=== PATIENT | male | born 1970 | race American Indian/Alaskan Native ===

== ENCOUNTER 2017-05-14 22:00 | Emergency (ER) | payer SELFPAY ==
[2017-05-14] MEDS ORDERED: Lidocaine 1% 30 ML SDV INJECT ONE (22:19)
[2017-05-14] MEDS ORDERED: Bacitracin Oint 1 GM U/D Packet TOP ONE (22:19)
[2017-05-14 22:38] LABS: CHLORIDE,CL 102 mmol/L (101-111); SODIUM,NA 138 mmol/L (135-145)
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
== END 2017-05-14 22:52 | disposition left against medical advice (07) ==
LOC: DL.ED 22:00
DX: S01.81XA Laceration without foreign body of other part of head, initial encounter (principal); S60.311A Abrasion of right thumb, initial encounter; F10.129 Alcohol abuse with intoxication, unspecified; F17.210 Nicotine dependence, cigarettes, uncomplicated; Z88.6 Allergy status to analgesic agent; Z79.4 Long term (current) use of insulin; W19.XXXA Unspecified fall, initial encounter; Y90.8 Blood alcohol level of 240 mg/100 ml or more
CPT/HCPCS: 12011; 36415; 70450; 70486; 72125; 80053; 82962; 85025; 99284; G0480

== ENCOUNTER 2018-10-19 09:02 | Emergency (ER) | payer MEDICAID, OTHER ==
[2018-10-19] MEDS ORDERED: LORazepam 2 MG/ML Syringe ONE (09:08)
[2018-10-19] MEDS ORDERED: diphenhydrAMINE 50 MG/ML SDV IVPUSH ONE (09:14)
[2018-10-19] MEDS ORDERED: Haloperidol Lactate 5 MG/ML SDV IVPUSH ONE (09:14)
[2018-10-19] MEDS ORDERED: Rocuronium 100 MG/10 ML MDV IV ONE (09:19)
[2018-10-19] MEDS ORDERED: Succinylcholine 200 MG/10 ML MDV IV ONE (09:19)
[2018-10-19] MEDS ORDERED: Propofol 200 MG/20 ML SDV IV ONE (09:19)
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
[2018-10-19 09:58] LABS: ANION GAP 21.2; CHLORIDE,CL 108 mmol/L (101-111); SODIUM,NA 144 mmol/L (135-145)
[2018-10-19 10:18] LABS: ACETAMINOPHEN < 10 ug/mL
[2018-10-19 10:28] VITALS: BP 155/88
== END 2018-10-19 12:00 ==
LOC: DL.ED 09:18
DX: S06.5X9A Traumatic subdural hemorrhage with loss of consciousness of unspecified duration, initial encounter (principal); S60.812A Abrasion of left wrist, initial encounter; S60.811A Abrasion of right wrist, initial encounter; S80.812A Abrasion, left lower leg, initial encounter; S80.811A Abrasion, right lower leg, initial encounter; Z88.6 Allergy status to analgesic agent; W19.XXXA Unspecified fall, initial encounter; W22.8XXA Striking against or struck by other objects, initial encounter
CPT/HCPCS: 31500; 51702; 70450; 71045; 72125; 80053; 80305; 81001; 82009; 82140; 82150; 82962; 83605; 83690; 83735; 85025; 86788; 93005; 96374; 96375; 99285; G0480; J0330; J1200; J1630; J2060; J2704; 36415

== ENCOUNTER 2020-12-02 23:46 | Emergency (ER) | payer SELFPAY ==
[2020-12-03 00:01] VITALS: BP 145/94; PULSE 106
--- NOTE | 2020-12-03 00:04 | EDM.PDOC ---
ED HPI GENERAL MEDICAL PROBLEM - General Chief Complaint: Lower Extremity Injury/Pain Stated Complaint: SWELLING IN BOTH FEET Time Seen by Provider: 12/02/20 23:58 Source of Information: Reports: Patient - History of Present Illness INITIAL COMMENTS - FREE TEXT/NARRATIVE: Pt is here for bilateral feet pain and swelling. He noted that his right foot started with swelling and pain, then it moved to his left foot and leg. He has a history of diabetes, but hasn't been to see is PCP in over a year and has not been taking any medications. He noted his pain and swelling have been present for 3-4 days and an ulcer on his right foot has been there for 5 days. Pt stated he didn't go to his PCP as he doesn't like the hospital. The pain became severe so he finally decided to come in. He denies any fevers or chills. He has not taken anything for the pain or swelling. He has decreased sensation in his feet from his diabetes, but can feel the pain right now. - Related Data Allergies Allergy/AdvReac Type Severity Reaction Status Date / Time ibuprofen AdvReac Mild Abdominal Verified 10/19/18 10:45 Pain Home Meds: Home Meds metFORMIN [Glucophage] 1,000 mg PO BIDMEALS 09/05/14 [History] Insulin Detemir [Levemir] 20 unit SQ BEDTIME 10/19/14 [History] Losartan [Cozaar] 25 mg PO DAILY 05/23/17 [History] Past Medical History - Past Health History Medical/Surgical History: Denies Medical/Surgical History Cardiovascular History: Reports: Hypertension Neurological History: Reports: Brain Injury (Hx of subdural hematoma), Concussion, Head Trauma Psychiatric History: Reports: Addiction (Methampetamine, THC), Depression, Other (See Below) Endocrine/Metabolic History: Reports: Diabetes, Type II Social & Family History - Family History Family Medical History: Unobtainable - Caffeine Use Caffeine Use: Reports: Other Caffeine Use Comment: unable to obtain - Living Situation & Occupation Living situation: Reports: with Spouse Review of Systems - Review of Systems Review Of Systems: Comprehensive ROS is negative, except as noted in HPI. ED EXAM, GENERAL - Physical Exam Exam: See Below Exam Limited By: No Limitations General Appearance: Alert, No Apparent Distress Eye Exam: Bilateral Eye: Normal Inspection Ears: Normal External Exam Throat/Mouth: Normal Voice, No Airway Compromise Head: Atraumatic, Normocephalic Neck: Supple, Non-Tender Respiratory/Chest: No Respiratory Distress, Lungs Clear, Normal Breath Sounds, No Accessory Muscle Use Cardiovascular: Normal Peripheral Pulses, Regular Rate, Rhythm, No Murmur GI/Abdominal: Soft, No Distention (Male) Exam: Deferred Rectal (Males) Exam: Deferred Back Exam: Full Range of Motion Extremities: Leg Pain, Increased Warmth, Redness, Other (Right great toe with chronic ulcer noted on plantar aspect, about 6 mm in diameter and 4 mm deep. Erythema and swelling over the great toe extending to midfoot. Left foot with moderate swelling, erythema and warmth extending to the mid calf, skin breakdown noted on the great toe, but no ulcer identi) Neurological: Alert, Oriented, Normal Cognition Psychiatric: Normal Affect, Normal Mood Skin Exam: Other (see extremities) Lymphatic: No Adenopathy Course - Re-Assessments/Exams Free Text/Narrative Re-Assessment/Exam: IV was started and labs were drawn. Pt informed the nurse he wanted to leave AMA prior to getting his antibiotics. 12/03/20 00:13 Departure - Departure Time of Disposition: 00:16 Disposition: Against Medical Advice 07 Condition: Undetermined Clinical Impression: Cellulitis Qualifiers: Site of cellulitis: extremity Site of cellulitis of extremity: lower extremity Laterality: unspecified laterality Qualified Code(s): L03.119 - Cellulitis of unspecified part of limb - Discharge Information *PRESCRIPTION DRUG MONITORING PROGRAM REVIEWED*: Not Applicable *COPY OF PRESCRIPTION DRUG MONITORING REPORT IN PATIENT DIEGO: Not Applicable Forms: ED Department Discharge, Refusal of Care A
[2020-12-03] MEDS ORDERED: Sodium Chloride 0.9% 10 ML Syringe FLUSH PRN (00:05)
[2020-12-03] MEDS ORDERED: cefTRIAXone 1 GM in Sodium Chloride 0.9% 50 ML IV ONE (00:06)
[2020-12-03 00:44] LABS: ANION GAP 11.2 mEq/L (7-13); CHLORIDE,CL 94 mmol/L (98-107); SODIUM,NA 131 mmol/L (136-145)
== END 2020-12-03 00:15 | disposition left against medical advice (07) ==
LOC: DL.ED 23:46
DX: L03.116 Cellulitis of left lower limb (principal); L03.115 Cellulitis of right lower limb; L97.519 Non-pressure chronic ulcer of other part of right foot with unspecified severity; E11.9 Type 2 diabetes mellitus without complications; I10 Essential (primary) hypertension; Z88.4 Allergy status to anesthetic agent; Z79.4 Long term (current) use of insulin; Z79.84 Long term (current) use of oral hypoglycemic drugs; Z79.899 Other long term (current) drug therapy
CPT/HCPCS: 36415; 80053; 85025; 87040; 87077; 87186; 99283

== ENCOUNTER 2020-12-05 11:55 | Inpatient (IN) | payer OTHER ==
--- NOTE | 2020-12-05 12:01 | EDM.PDOC ---
ED HPI GENERAL MEDICAL PROBLEM - General Chief Complaint: Lower Extremity Injury/Pain Stated Complaint: AMBULANCE: SENT BY [facility], INFECTED FEET/LEGS Time Seen by Provider: 12/05/20 12:00 Source of Information: Reports: Patient, EMS, Old Records, RN, RN Notes Reviewed History Limitations: Reports: No Limitations - History of Present Illness INITIAL COMMENTS - FREE TEXT/NARRATIVE: Pt sent to ER by ambulance from [facility] with cellulitis left foot, B/L foot/toe ulcers, and uncontrolled DM type 2. Pt was seen here on 12/02/[address] White for the same complaint, but left the ER against medical advise. Pt is now willing to have medical evaluation and treatment. Pt has not taken any medications, diabetic or other, for over six months because his doctor terminated his care of the pt due to failure to show up for appointments. The pt admits to pain in the feet and left lower leg. He denies fever or chills. Onset: Gradual, Unknown/Unsure Duration: Constant, Getting Worse Location: Reports: Lower Extremity, Left, Lower Extremity, Right Quality: Reports: Ache Severity: Moderate Improves with: Reports: None Worsens with: Reports: Other (Wt bearing/walking) Associated Symptoms: Reports: No Other Symptoms left foot Pain Score (Numeric/FACES): 8 - Related Data Allergies Allergy/AdvReac Type Severity Reaction Status Date / Time ibuprofen AdvReac Mild Abdominal Verified 12/05/20 12:18 Pain Home Meds: Home Meds metFORMIN [Glucophage] 1,000 mg PO BIDMEALS 09/05/14 [History] Insulin Detemir [Levemir] 20 unit SQ BEDTIME 10/19/14 [History] Losartan [Cozaar] 25 mg PO DAILY 05/23/17 [History] Past Medical History - Past Health History Medical/Surgical History: Denies Medical/Surgical History Cardiovascular History: Reports: Hypertension Neurological History: Reports: Brain Injury, Concussion, Head Trauma Psychiatric History: Reports: Addiction, Depression, Other (See Below) Endocrine/Metabolic History: Reports: Diabetes, Type II Hematologic History: Reports: None Immunologic History: Reports: None Oncologic (Cancer) History: Reports: None Dermatologic History: Reports: Cellulitis - Infectious Disease History Infectious Disease History: Reports: None - Past Surgical History Head Surgeries/Procedures: Reports: None Social & Family History - Family History Family Medical History: No Pertinent Family History - Caffeine Use Caffeine Use: Reports: Coffee Caffeine Use Comment: unable to obtain - Living Situation & Occupation Living situation: Reports: with Spouse Review of Systems - Review of Systems Review Of Systems: Comprehensive ROS is negative, except as noted in HPI. ED EXAM, GENERAL - Physical Exam Exam: See Below Exam Limited By: No Limitations General Appearance: Alert, WD/WN, No Apparent Distress Throat/Mouth: Normal Voice, No Airway Compromise Head: Atraumatic, Normocephalic Neck: Normal Inspection Respiratory/Chest: No Respiratory Distress, Lungs Clear Cardiovascular: Regular Rate, Rhythm, No Edema GI/Abdominal: Normal Bowel Sounds, Soft Back Exam: Full Range of Motion. No: Vertebral Tenderness Extremities: Normal Range of Motion, No Pedal Edema, Normal Capillary Refill, Other (Left 1st toe has soft tissue swelling and tenderness, erythema and increased warmth spread proximally to the distal 1/3 of the left lower leg. Multiple B/L toes have unstagable ulcers.). No: Joint Swelling, Reny's Sign Neurological: Alert, Oriented, CN II-XII Intact, No Motor/Sensory Deficits Psychiatric: Normal Mood, Flat Affect Skin Exam: Warm, Dry Course - Vital Signs Last Recorded V/S: Last Vital Signs Temp 98.3 F 12/05/20 12:11 Pulse 92 12/05/20 12:11 Resp 18 12/05/20 12:11 BP 135/86 12/05/20 12:11 Pulse Ox 100 12/05/20 12:11 - Orders/Labs/Meds Orders: Active Orders 24 hr Category Date Time Status Peripheral IV Care [RC] . DIRECTED Care 12/05/20 12:06 Active CORONAVIRUS COVID-19 YVROSE [MOLEC] Stat Lab 12/05/20 13:00 Received CULTURE BLOOD [BC] Stat Lab 12/05/20 12:22 Received CULTURE BLOOD [BC] Stat Lab 12/05/20 12:28 Received Pharmacy to Dose - Vancomycin Med 12/05/20 12:16 Pending 1 dose .XX ASDIRECTED Sodium Chloride 0.9% [Saline Flush] Med 12/05/20 12:06 Active 10 ml FLUSH ASDIRECTED PRN VANCOmycin 1.5 GM/300 ML 1.5 gm Med 12/05/20 13:00 Active Premix Bag 1 bag IV ONETIME Blood Culture x2 Reflex Set [OM.PC] Stat Oth 12/05/20 12:05 Ordered Peripheral IV Insertion Adult [OM.PC] Stat Oth 12/05/20 12:06 Ordered Medication Orders Vancomycin HCl 1.5 gm/ Premix 300 mls @ 200 mls/hr IV ONETIME ONE Stop: 12/05/20 14:29 Last Admin: 12/05/20 12:43 Dose: 200 mls/hr Documented by: JASMIN Sodium Chloride (Sodium Chloride 0.9% 10 Ml Syringe) 10 ml FLUSH ASDIRECTED PRN PRN Reason: Keep Vein Open Last Admin: 12/05/20 12:44 Dose: 10 ml Documented by: JASMIN Vancomycin HCl (Pharmacy To Dose - Vancomycin) 1 dose .XX ASDIRECTED ROGERIO Labs: Laboratory Tests 12/05/20 12/05/20 12/05/20 Range/Units 12:22 12:22 12:22 WBC 8.9 (5.0-10.0) 10^3/uL RBC 4.71 (4.6-6.2) 10^6/uL Hgb 14.1 (14.0-18.0) g/dL Hct 40.4 (40.0-54.0) % MCV 85.8 (80-100) fL MCH 29.9 (27.0-34.0) pg MCHC 34.9 (33.0-35.0) g/dL Plt Count 260 (150-450) 10^3/uL Neut % (Auto) 76.1 H (42.2-75.2) % Lymph % (Auto) 14.1 L (20.5-50.1) % [place] % (Auto) 9.1 H (2-8) % Eos % (Auto) 0.5 L (1.0-3.0) % Baso % (Auto) 0.2 (0.0-1.0) % Sodium 136 (136-145) mmol/L Potassium 3.7 (3.5-5.1) mmol/L Chloride 99 (98-107) mmol/L Carbon Dioxide 30 (21-32) mmol/L Anion Gap 10.7 (7-13) mEq/L BUN 5 L (7-18) mg/dL Creatinine 0.76 (0.70-1.30) mg/dL Est Cr Clr Drug Dosing 138.20 mL/min Estimated GFR (MDRD) > 60 BUN/Creatinine Ratio 6.6 (No establ ref range) Glucose 353 H (70-99) mg/dL Hemoglobin A1c (<5.7) % Lactic Acid 1.5 (0.4-2.0) mmol/L Calcium 8.6 (8.5-10.1) mg/dL Total Bilirubin 0.4 (0.2-1.0) mg/dL AST 16 (15-37) U/L ALT 24 (16-63) U/L Alkaline Phosphatase 215 H (46-116) U/L C-Reactive Protein 6.2 H (0.0-0.9) mg/dL Total Protein 8.0 (6.4-8.2) g/dL Albumin 2.7 L (3.4-5.0) g/dL Globulin 5.3 Albumin/Globulin Ratio 0.51 Urine Color (YELLOW) Urine Appearance (CLEAR) Urine pH (5.0-9.0) Ur Specific [place] (1.005-1.030) Urine Protein (NEGATIVE) Urine Glucose (UA) (NEGATIVE) Urine Ketones (NEGATIVE) Urine Occult Blood (NEGATIVE) Urine Nitrite (NEGATIVE) Urine Bilirubin (NEGATIVE) Urine Urobilinogen (0.2-1.0) mg/dL Ur Leukocyte Esterase (NEGATIVE) Urine RBC (0-5) /HPF Urine WBC (0-5/HPF) /HPF Ur Epithelial Cells (NOT SEEN) /HPF Urine Bacteria (0-FEW/HPF) /HPF Urine Opiates Screen (NEGATIVE) Ur Oxycodone Screen (NEGATIVE) Urine Methadone Screen (NEGATIVE) Ur Barbiturates Screen (NEGATIVE) U Tricyclic Antidepress (NEGATIVE) Ur Phencyclidine Scrn (NEGATIVE) Ur Amphetamine Screen (NEGATIVE) U Methamphetamines Scrn (NEGATIVE) Urine MDMA Screen (NEGATIVE) U Benzodiazepines Scrn (NEGATIVE) Urine Cocaine Screen (NEGATIVE) U Marijuana (THC) Screen (NEGATIVE) Ketones Negative 12/05/20 12/05/20 12/05/20 Range/Units 12:22 12:38 12:38 WBC (5.0-10.0) 10^3/uL RBC (4.6-6.2) 10^6/uL Hgb (14.0-18.0) g/dL Hct (40.0-54.0) % MCV (80-100) fL MCH (27.0-34.0) pg MCHC (33.0-35.0) g/dL Plt Count (150-450) 10^3/uL Neut % (Auto) (42.2-75.2) % Lymph % (Auto) (20.5-50.1) % [place] % (Auto) (2-8) % Eos % (Auto) (1.0-3.0) % Baso % (Auto) (0.0-1.0) % Sodium (136-145) mmol/L Potassium (3.5-5.1) mmol/L Chloride (98-107) mmol/L Carbon Dioxide (21-32) mmol/L Anion Gap (7-13) mEq/L BUN (7-18) mg/dL Creatinine (0.70-1.30) mg/dL Est Cr Clr Drug Dosing mL/min Estimated GFR (MDRD) BUN/Creatinine Ratio (No establ ref range) Glucose (70-99) mg/dL Hemoglobin A1c 8.1 H (<5.7) % Lactic Acid (0.4-2.0) mmol/L Calcium (8.5-10.1) mg/dL Total Bilirubin (0.2-1.0) mg/dL AST (15-37) U/L ALT (16-63) U/L Alkaline Phosphatase (46-116) U/L C-Reactive Protein (0.0-0.9) mg/dL Total Protein (6.4-8.2) g/dL Albumin (3.4-5.0) g/dL Globulin Albumin/Globulin Ratio Urine Color Yellow (YELLOW) Urine Appearance Clear (CLEAR) Urine pH 6.5 (5.0-9.0) Ur Specific [place] 1.015 (1.005-1.030) Urine Protein Negative (NEGATIVE) Urine Glucose (UA) 500 H (NEGATIVE) Urine Ketones Negative (NEGATIVE) Urine Occult Blood Trace-intact H (NEGATIVE) Urine Nitrite Negative (NEGATIVE) Urine Bilirubin Negative (NEGATIVE) Urine Urobilinogen 2.0 H (0.2-1.0) mg/dL Ur Leukocyte Esterase Negative (NEGATIVE) Urine RBC 0-5 (0-5) /HPF Urine WBC 0-5 (0-5/HPF) /HPF Ur Epithelial Cells Few (NOT SEEN) /HPF Urine Bacteria Few (0-FEW/HPF) /HPF Urine Opiates Screen Negative (NEGATIVE) Ur Oxycodone Screen Negative (NEGATIVE) Urine Methadone Screen Negative (NEGATIVE) Ur Barbiturates Screen Negative (NEGATIVE) U Tricyclic Antidepress Negative (NEGATIVE) Ur Phencyclidine Scrn Negative (NEGATIVE) Ur Amphetamine Screen Negative (NEGATIVE) U Methamphetamines Scrn Positive H (NEGATIVE) Urine MDMA Screen Negative (NEGATIVE) U Benzodiazepines Scrn Negative (NEGATIVE) Urine Cocaine Screen Negative (NEGATIVE) U Marijuana (THC) Screen Negative (NEGATIVE) Ketones Meds: Medications Generic Name Dose Route Start Last Admin Trade Name Freq PRN Reason Stop Dose Admin Vancomycin HCl 1.5 gm/ Premix 300 mls @ 200 mls/hr 12/05/20 13:00 12/05/20 12:43 IV 12/05/20 14:29 200 mls/hr ONETIME ONE Administration Sodium Chloride 10 ml 12/05/20 12:06 12/05/20 12:44 Sodium Chloride 0.9% 10 Ml Syringe FLUSH 10 ml ASDIRECTED PRN Administration Keep Vein Open Vancomycin HCl 1 dose 12/05/20 12:16 Pharmacy To Dose - Vancomycin .XX ASDIRECTED ROGERIO - Radiology Interpretation Free Text/Narrative:: XR Right Foot: no acute process. Old infection or avulsion fracture at corner of distal-medial aspect, proximal phalanx or right great toe per radiologist's report. XR Left Foot: soft tissue swelling of left great toe with findings consistent with osteomyelitis changes of the distal phalanx, and early destructive changes of the distal end of the proximal phalanx of the left great toe per radiologist's report. Departure - Departure Time of Disposition: 13:45 (admitted to Dr. Becerra) Disposition: Admitted As Inpatient 68 Condition: Fair Clinical Impression: Cellulitis of left lower extremity, Osteomyelitis of great toe of left foot, Diabetic ulcer of both feet, Methamphetamine abuse Uncontrolled type 2 diabetes mellitus Qualifiers: Glycemic state: with hyperglycemia Qualified Code(s): E11.65 - Type 2 diabetes mellitus with hyperglycemia - Discharge Information *PRESCRIPTION DRUG MONITORING PROGRAM REVIEWED*: No *COPY OF PRESCRIPTION DRUG MONITORING REPORT IN PATIENT DIEGO: No Forms: ED Department Discharge Sepsis Event Note (ED) - Focused Exam Vital Signs: Vital Signs Temp Pulse Resp BP Pulse Ox 12/05/20 12:11 98.3 F 92 18 135/86 100 - My Orders Last 24 Hours: My Active Orders 12/05/20 12:05 Blood Culture x2 Reflex Set [OM.PC] Stat 12/05/20 12:06 Peripheral IV Care [RC] . DIRECTED Sodium Chloride 0.9% [Saline Flush] 10 ml FLUSH ASDIRECTED PRN Peripheral IV Insertion Adult [OM.PC] Stat 12/05/20 12:16 Pharmacy to Dose - Vancomycin 1 dose .XX ASDIRECTED 12/05/20 12:22 CULTURE BLOOD [BC] Stat 12/05/20 12:28 CULTURE BLOOD [BC] Stat 12/05/20 13:00 CORONAVIRUS COVID-19 YVROSE [MOLEC] Stat VANCOmycin 1.5 GM/300 ML 1.5 gm Premix Bag 1 bag IV ONETIME - Assessment/Plan Last 24 Hours: My Active Orders 12/05/20 12:05 Blood Culture x2 Reflex Set [OM.PC] Stat 12/05/20 12:06 Peripheral IV Care [RC] . DIRECTED Sodium Chloride 0.9% [Saline Flush] 10 ml FLUSH ASDIRECTED PRN Peripheral IV Insertion Adult [OM.PC] Stat 12/05/20 12:16 Pharmacy to Dose - Vancomycin 1 dose .XX ASDIRECTED 12/05/20 12:22 CULTURE BLOOD [BC] Stat 12/05/20 12:28 CULTURE BLOOD [BC] Stat 12/05/20 13:00 CORONAVIRUS COVID-19 YVROSE [MOLEC] Stat VANCOmycin 1.5 GM/300 ML 1.5 gm Premix Bag 1 bag IV ONETIME
[2020-12-05] MEDS: Sodium Chloride 0.9% 10 ML Syringe FLUSH PRN ×2 (12:44→14:19)
[2020-12-05 12:53] LABS: ANION GAP 10.7 mEq/L (7-13); CHLORIDE,CL 99 mmol/L (98-107); SODIUM,NA 136 mmol/L (136-145)
[2020-12-05 12:58] LABS: AMPHETAMINES,URINE NEGATIVE (NEGATIVE); BARBITURATES,URINE NEGATIVE (NEGATIVE); BENZODIAZEPINE,URINE NEGATIVE (NEGATIVE); MDMA (ECSTASY), URINE NEGATIVE (NEGATIVE); METHADONE,URINE NEGATIVE (NEGATIVE); METHAMPHETAMINES,URINE POSITIVE (NEGATIVE); OPIATES,URINE NEGATIVE (NEGATIVE); OXYCODONE,URINE NEGATIVE (NEGATIVE); PHENCYCLIDINE,URINE NEGATIVE (NEGATIVE); TCA,URINE NEGATIVE (NEGATIVE)
[2020-12-05] MEDS ORDERED: VANCOmycin 1.5 GM/300 ML 1.5 GM in Premix Bag 1 BAG IV ONE (13:00)
[2020-12-05 13:06] LABS: HEMOGLOBIN A1C 8.1 % (<5.7)
--- NOTE | 2020-12-05 13:16 | CR ---
EXAMINATION: Foot 2V Rt SEX: Male AGE: 50 years CLINICAL HISTORY: 50-year-old diabetic male right great toe ulcer. Interpretation: (AP lateral right foot) 1. Pes cavus. Tiny heel spur at the insertion plantar aponeurosis base of the os calcis. 2. Homogeneous normal bone mineral density for age and gender. 3. No foreign bodies or inflammatory periostitis. 4. Apparent old infection and/or traumatic avulsion (corner fracture fragment), distal-medial aspect, proximal phalanx right great toe. No current erosive or lytic destructive changes bones of the right foot. 5. No acute fracture or dislocation.
--- NOTE | 2020-12-05 13:20 | CR ---
EXAMINATION: Foot 2V Lt SEX: Male AGE: 50 years CLINICAL HISTORY: 50-year-old diabetic male with ulcers first toe, both feet (left foot "cellulitis"). No previous comparisons left foot. Interpretation (AP lateral left foot) ABNORMAL. 1. Soft tissue swelling great toe. *Osteolytic destructive demineralization with fragmentation distal phalanx left great toe. 2. Focal cortical erosion and early osteolytic destructive changes distal end of the proximal phalanx, medially. 3. No foreign bodies. 4. Arteriovascular calcifications in the soft tissues. Generally good bone mineral density for age and gender. 5. No sign of other infection or fracture/dislocation left foot.
[2020-12-05] MEDS ORDERED: Acetaminophen 325 MG Tab PO PRN (15:59)
[2020-12-05] MEDS ORDERED: Docusate Sodium 100 MG Cap PO PRN (15:59)
[2020-12-05] MEDS ORDERED: Bisacodyl 5 MG Tab PO PRN (15:59)
[2020-12-05] MEDS ORDERED: Ondansetron 4 MG/2 ML SDV IVPUSH PRN (15:59)
[2020-12-05] MEDS ORDERED: Glucagon,Human Recombinant 1 MG Vial IM PRN (16:07)
[2020-12-05] MEDS ORDERED: 50% Dextrose in Water 50 ML Syringe IVPUSH PRN (16:07)
--- NOTE | 2020-12-05 16:14 | PCM.HP ---
H&P History of Present Illness - General Date of Service: 12/05/20 Admit Problem/Dx: Admission Diagnosis/Problem Admission Diagnosis/Problem Osteomyelitis of foot Source of Information: Patient, Provider (ER) - History of Present Illness Initial Comments - Free Text/Narative: Pt sent to ER by ambulance from [facility] with cellulitis left foot, B/L foot/toe ulcers, and uncontrolled DM type 2. Pt was seen here on 12/02/20 in ER but left the ER against medical advise. Pt is now willing to have medical evaluation and treatment. Pt has not taken any medications, diabetic or other, for over six months because his doctor terminated his care of the pt due to failure to show up for appointments. The pt admits to pain in the feet and left lower leg. He denies fever or chills. left foot Pain Score (Numeric/FACES): 8 - Related Data Allergies/Adverse Reactions: Allergies Allergy/AdvReac Type Severity Reaction Status Date / Time ibuprofen AdvReac Mild Abdominal Verified 12/05/20 12:18 Pain Home Medications: Home Meds metFORMIN [Glucophage] 1,000 mg PO BIDMEALS 09/05/14 [History] Insulin Detemir [Levemir] 20 unit SQ BEDTIME 10/19/14 [History] Losartan [Cozaar] 25 mg PO DAILY 05/23/17 [History] Past Medical History - Past Health History Medical/Surgical History: Denies Medical/Surgical History HEENT History: Reports: None Cardiovascular History: Reports: Hypertension Respiratory History: Reports: None Gastrointestinal History: Reports: None Genitourinary History: Reports: Diabetic Nephropathy Musculoskeletal History: Reports: None Neurological History: Reports: Brain Injury, Concussion, Head Trauma Psychiatric History: Reports: Addiction, Depression, Other (See Below) Endocrine/Metabolic History: Reports: Diabetes, Type II Hematologic History: Reports: Blood Transfusion(s) Immunologic History: Reports: None Oncologic (Cancer) History: Reports: None Dermatologic History: Reports: Cellulitis - Infectious Disease History Infectious Disease History: Reports: Chicken Pox - Past Surgical History Head Surgeries/Procedures: Reports: None Social & Family History - Family History Family Medical History: No Pertinent Family History - Tobacco Use Tobacco Use Status *Q: Current Every Day Tobacco User Years of Tobacco use: 20 Packs/Tins Daily: 1 - Caffeine Use Caffeine Use: Reports: Soda Caffeine Use Comment: unable to obtain - Alcohol Use Days Per Week of Alcohol Use: 4 Number of Drinks Per Day: 5 Total Drinks Per Week: 20 - Recreational Drug Use Recreational Drug Use: Yes Recreational Drug Type: Reports: Amphetamines (Speed), Methamphetamine Recreational Drug Use Frequency: Socially - Living Situation & Occupation Living situation: Reports: with Spouse H&P Review of Systems - Review of Systems: Review Of Systems: Comprehensive ROS is negative, except as noted in HPI. General: Denies: Fever, Chills Pulmonary: Denies: Shortness of Breath Cardiovascular: Denies: Chest Pain Gastrointestinal: Denies: Abdominal Pain Psychiatric: Reports: No Symptoms Neurological: Denies: Confusion Hematologic/Lymphatic: Reports: No Symptoms Immunologic: Reports: No Symptoms Exam - Exam Exam: See Below - Vital Signs Vital Signs: Last Vital Signs Temp 99.1 F 12/05/20 14:36 Pulse 87 12/05/20 14:36 Resp 18 12/05/20 14:36 BP 146/86 H 12/05/20 14:36 Pulse Ox 99 12/05/20 14:36 Weight: 225 lb 12.8 oz - Exam Quality Assessment: No: Supplemental Oxygen General: Cooperative HEENT: EOMI Neck: Supple Lungs: Clear to Auscultation, Normal Respiratory Effort Cardiovascular: Regular Rate, Regular Rhythm GI/Abdominal Exam: Soft, Non-Tender (Male) Exam: Deferred Rectal (Males) Exam: Deferred Back Exam: Normal Inspection Extremities: No Pedal Edema Skin: Dry, Other (Left 1st toe has soft tissue swelling and tenderness, erythema and increased warmth. Multiple B/L toes multiple ulcers.) Neurological: Cranial Nerves Intact Neuro Extensive - Mental Status: Alert, Oriented x3 Neuro Extensive - Motor, Sensory, Reflexes: CN II-XII Intact Psychiatric: Alert, Normal Affect - Patient Data Lab Results Last 24 hrs: Laboratory Results - last 24 hr 12/05/20 12/05/20 12/05/20 Range/Units 12:22 12:22 12:22 WBC 8.9 (5.0-10.0) 10^3/uL RBC 4.71 (4.6-6.2) 10^6/uL Hgb 14.1 (14.0-18.0) g/dL Hct 40.4 (40.0-54.0) % MCV 85.8 (80-100) fL MCH 29.9 (27.0-34.0) pg MCHC 34.9 (33.0-35.0) g/dL Plt Count 260 (150-450) 10^3/uL Neut % (Auto) 76.1 H (42.2-75.2) % Lymph % (Auto) 14.1 L (20.5-50.1) % Chase % (Auto) 9.1 H (2-8) % Eos % (Auto) 0.5 L (1.0-3.0) % Baso % (Auto) 0.2 (0.0-1.0) % Sodium 136 (136-145) mmol/L Potassium 3.7 (3.5-5.1) mmol/L Chloride 99 (98-107) mmol/L Carbon Dioxide 30 (21-32) mmol/L Anion Gap 10.7 (7-13) mEq/L BUN 5 L (7-18) mg/dL Creatinine 0.76 (0.70-1.30) mg/dL Est Cr Clr Drug Dosing 138.20 mL/min Estimated GFR (MDRD) > 60 BUN/Creatinine Ratio 6.6 (No establ ref range) Glucose 353 H (70-99) mg/dL Hemoglobin A1c (<5.7) % Lactic Acid 1.5 (0.4-2.0) mmol/L Calcium 8.6 (8.5-10.1) mg/dL Total Bilirubin 0.4 (0.2-1.0) mg/dL AST 16 (15-37) U/L ALT 24 (16-63) U/L Alkaline Phosphatase 215 H (46-116) U/L C-Reactive Protein 6.2 H (0.0-0.9) mg/dL Total Protein 8.0 (6.4-8.2) g/dL Albumin 2.7 L (3.4-5.0) g/dL Globulin 5.3 Albumin/Globulin Ratio 0.51 Urine Color (YELLOW) Urine Appearance (CLEAR) Urine pH (5.0-9.0) Ur Specific [place] (1.005-1.030) Urine Protein (NEGATIVE) Urine Glucose (UA) (NEGATIVE) Urine Ketones (NEGATIVE) Urine Occult Blood (NEGATIVE) Urine Nitrite (NEGATIVE) Urine Bilirubin (NEGATIVE) Urine Urobilinogen (0.2-1.0) mg/dL Ur Leukocyte Esterase (NEGATIVE) Urine RBC (0-5) /HPF Urine WBC (0-5/HPF) /HPF Ur Epithelial Cells (NOT SEEN) /HPF Urine Bacteria (0-FEW/HPF) /HPF Urine Opiates Screen (NEGATIVE) Ur Oxycodone Screen (NEGATIVE) Urine Methadone Screen (NEGATIVE) Ur Barbiturates Screen (NEGATIVE) U Tricyclic Antidepress (NEGATIVE) Ur Phencyclidine Scrn (NEGATIVE) Ur Amphetamine Screen (NEGATIVE) U Methamphetamines Scrn (NEGATIVE) Urine MDMA Screen (NEGATIVE) U Benzodiazepines Scrn (NEGATIVE) Urine Cocaine Screen (NEGATIVE) U Marijuana (THC) Screen (NEGATIVE) Ketones Negative SARS-CoV-2 RNA (YVROSE) (NEGATIVE) 12/05/20 12/05/20 12/05/20 Range/Units 12:22 12:38 12:38 WBC (5.0-10.0) 10^3/uL RBC (4.6-6.2) 10^6/uL Hgb (14.0-18.0) g/dL Hct (40.0-54.0) % MCV (80-100) fL MCH (27.0-34.0) pg MCHC (33.0-35.0) g/dL Plt Count (150-450) 10^3/uL Neut % (Auto) (42.2-75.2) % Lymph % (Auto) (20.5-50.1) % Chase % (Auto) (2-8) % Eos % (Auto) (1.0-3.0) % Baso % (Auto) (0.0-1.0) % Sodium (136-145) mmol/L Potassium (3.5-5.1) mmol/L Chloride (98-107) mmol/L Carbon Dioxide (21-32) mmol/L Anion Gap (7-13) mEq/L BUN (7-18) mg/dL Creatinine (0.70-1.30) mg/dL Est Cr Clr Drug Dosing mL/min Estimated GFR (MDRD) BUN/Creatinine Ratio (No establ ref range) Glucose (70-99) mg/dL Hemoglobin A1c 8.1 H (<5.7) % Lactic Acid (0.4-2.0) mmol/L Calcium (8.5-10.1) mg/dL Total Bilirubin (0.2-1.0) mg/dL AST (15-37) U/L ALT (16-63) U/L Alkaline Phosphatase (46-116) U/L C-Reactive Protein (0.0-0.9) mg/dL Total Protein (6.4-8.2) g/dL Albumin (3.4-5.0) g/dL Globulin Albumin/Globulin Ratio Urine Color Yellow (YELLOW) Urine Appearance Clear (CLEAR) Urine pH 6.5 (5.0-9.0) Ur Specific [place] 1.015 (1.005-1.030) Urine Protein Negative (NEGATIVE) Urine Glucose (UA) 500 H (NEGATIVE) Urine Ketones Negative (NEGATIVE) Urine Occult Blood Trace-intact H (NEGATIVE) Urine Nitrite Negative (NEGATIVE) Urine Bilirubin Negative (NEGATIVE) Urine Urobilinogen 2.0 H (0.2-1.0) mg/dL Ur Leukocyte Esterase Negative (NEGATIVE) Urine RBC 0-5 (0-5) /HPF Urine WBC 0-5 (0-5/HPF) /HPF Ur Epithelial Cells Few (NOT SEEN) /HPF Urine Bacteria Few (0-FEW/HPF) /HPF Urine Opiates Screen Negative (NEGATIVE) Ur Oxycodone Screen Negative (NEGATIVE) Urine Methadone Screen Negative (NEGATIVE) Ur Barbiturates Screen Negative (NEGATIVE) U Tricyclic Antidepress Negative (NEGATIVE) Ur Phencyclidine Scrn Negative (NEGATIVE) Ur Amphetamine Screen Negative (NEGATIVE) U Methamphetamines Scrn Positive H (NEGATIVE) Urine MDMA Screen Negative (NEGATIVE) U Benzodiazepines Scrn Negative (NEGATIVE) Urine Cocaine Screen Negative (NEGATIVE) U Marijuana (THC) Screen Negative (NEGATIVE) Ketones SARS-CoV-2 RNA (YVROSE) (NEGATIVE) 12/05/20 Range/Units 13:00 WBC (5.0-10.0) 10^3/uL RBC (4.6-6.2) 10^6/uL Hgb (14.0-18.0) g/dL Hct (40.0-54.0) % MCV (80-100) fL MCH (27.0-34.0) pg MCHC (33.0-35.0) g/dL Plt Count (150-450) 10^3/uL Neut % (Auto) (42.2-75.2) % Lymph % (Auto) (20.5-50.1) % Chase % (Auto) (2-8) % Eos % (Auto) (1.0-3.0) % Baso % (Auto) (0.0-1.0) % Sodium (136-145) mmol/L Potassium (3.5-5.1) mmol/L Chloride (98-107) mmol/L Carbon Dioxide (21-32) mmol/L Anion Gap (7-13) mEq/L BUN (7-18) mg/dL Creatinine (0.70-1.30) mg/dL Est Cr Clr Drug Dosing mL/min Estimated GFR (MDRD) BUN/Creatinine Ratio (No establ ref range) Glucose (70-99) mg/dL Hemoglobin A1c (<5.7) % Lactic Acid (0.4-2.0) mmol/L Calcium (8.5-10.1) mg/dL Total Bilirubin (0.2-1.0) mg/dL AST (15-37) U/L ALT (16-63) U/L Alkaline Phosphatase (46-116) U/L C-Reactive Protein (0.0-0.9) mg/dL Total Protein (6.4-8.2) g/dL Albumin (3.4-5.0) g/dL Globulin Albumin/Globulin Ratio Urine Color (YELLOW) Urine Appearance (CLEAR) Urine pH (5.0-9.0) Ur Specific [place] (1.005-1.030) Urine Protein (NEGATIVE) Urine Glucose (UA) (NEGATIVE) Urine Ketones (NEGATIVE) Urine Occult Blood (NEGATIVE) Urine Nitrite (NEGATIVE) Urine Bilirubin (NEGATIVE) Urine Urobilinogen (0.2-1.0) mg/dL Ur Leukocyte Esterase (NEGATIVE) Urine RBC (0-5) /HPF Urine WBC (0-5/HPF) /HPF Ur Epithelial Cells (NOT SEEN) /HPF Urine Bacteria (0-FEW/HPF) /HPF Urine Opiates Screen (NEGATIVE) Ur Oxycodone Screen (NEGATIVE) Urine Methadone Screen (NEGATIVE) Ur Barbiturates Screen (NEGATIVE) U Tricyclic Antidepress (NEGATIVE) Ur Phencyclidine Scrn (NEGATIVE) Ur Amphetamine Screen (NEGATIVE) U Methamphetamines Scrn (NEGATIVE) Urine MDMA Screen (NEGATIVE) U Benzodiazepines Scrn (NEGATIVE) Urine Cocaine Screen (NEGATIVE) U Marijuana (THC) Screen (NEGATIVE) Ketones SARS-CoV-2 RNA (YVROSE) Negative (NEGATIVE) Result Diagrams: 12/05/20 12:22 12/05/20 12:22 Problem List Initiated/Reviewed/Updated: No Orders Last 24hrs: Active Orders 24 hr Category Date Time Status Admission Diagnosis [ADT] Routine ADT 12/05/20 13:49 Ordered Admission Status [Patient Status] [ADT] Routine ADT 12/05/20 13:49 Active Patient Status [ADT] Routine ADT 12/05/20 15:59 Ordered Blood Glucose Check, Bedside [RC] WITHMEALSANDBED Care 12/05/20 15:59 Ordered Intake and Output [RC] QSHIFT Care 12/05/20 16:00 Ordered Oxygen Therapy [RC] PRN Care 12/05/20 15:59 Ordered Up ad Tata [RC] ASDIRECTED Care 12/05/20 15:59 Ordered VTE/DVT Education [RC] PER UNIT ROUTINE Care 12/05/20 15:59 Ordered Vital Signs [RC] Q4H Care 12/05/20 15:59 Ordered PT Evaluation and Treatment [CONS] Routine Cons 12/05/20 15:59 Ordered Consistent Carbohydrate Diet [DIET] Diet 12/05/20 Dinner Ordered CULTURE BLOOD [BC] Stat Lab 12/05/20 12:22 Received CULTURE BLOOD [BC] Stat Lab 12/05/20 12:28 Received LIPID PANEL [CHEM] AM Lab 12/06/20 05:11 Ordered Acetaminophen [TylenoL] Med 12/05/20 15:59 Ordered 650 mg PO Q4H PRN Acetaminophen/oxyCODONE [Percocet 325-5 MG] Med 12/05/20 15:59 Ordered 1 tab PO Q4H PRN Dextrose 50% in Water Med 12/05/20 16:07 Ordered 50 ml IVPUSH Q15M PRN Docusate Sodium [Colace] Med 12/05/20 15:59 Ordered 100 mg PO BID PRN Enoxaparin [Lovenox] Med 12/06/20 09:00 Ordered 40 mg SUBCUT DAILY Glucagon,Human Recombinant [GlucaGen] Med 12/05/20 16:07 Ordered 1 mg IM Q15M PRN Insulin Lispro [HumaLOG] Med 12/05/20 18:00 Ordered See Protocol SUBCUT WITHMEALSANDBED Nicotine [Habitrol] Med 12/06/20 09:00 Ordered 21 mg TRDERM DAILY Ondansetron [Zofran] Med 12/05/20 15:59 Ordered 4 mg IVPUSH Q6H PRN Piperacillin/Tazobactam [Zosyn] 4.5 gm Med 12/05/20 18:00 Ordered Sodium Chloride 0.9% [Normal Saline] 100 ml IV Q6HR Sodium Chloride 0.9% [Saline Flush] Med 12/05/20 12:06 Active 10 ml FLUSH ASDIRECTED PRN bisacodyL [Dulcolax] Med 12/05/20 15:59 Ordered 5 mg PO DAILY PRN Blood Culture x2 Reflex Set [OM.PC] Stat Oth 12/05/20 12:05 Ordered Peripheral IV Insertion Adult [OM.PC] Stat Oth 12/05/20 12:06 Ordered Resuscitation Status Routine Resus Stat 12/05/20 15:59 Ordered Medication Orders Acetaminophen (Acetaminophen 325 Mg Tab) 650 mg PO Q4H PRN PRN Reason: Pain (Mild 1-3)/fever Bisacodyl (Bisacodyl 5 Mg Tab) 5 mg PO DAILY PRN PRN Reason: Constipation Dextrose/Water (50% Dextrose In Water 50 Ml Syringe) 50 ml IVPUSH Q15M PRN PRN Reason: Hypoglycemia Docusate Sodium (Docusate Sodium 100 Mg Cap) 100 mg PO BID PRN PRN Reason: Constipation Enoxaparin Sodium (Enoxaparin 40 Mg/0.4 Ml Syringe) 40 mg SUBCUT DAILY ROGERIO Glucagon (Glucagon,Human Recombinant 1 Mg Vial) 1 mg IM Q15M PRN PRN Reason: Hypoglycemia Piperacillin Sod/Tazobactam (Sod 4.5 gm/ Sodium Chloride) 100 mls @ 200 mls/hr IV Q6HR ROGERIO Insulin Human Lispro (Insulin Lispro 100 Units/Ml 3 Ml Vial) 0 unit SUBCUT WITHMEALSANDBED ROGERIO; Protocol Nicotine (Nicotine 21 Mg/24 Hr Patch) 21 mg TRDERM DAILY ROGERIO Ondansetron HCl (Ondansetron 4 Mg/2 Ml Sdv) 4 mg IVPUSH Q6H PRN PRN Reason: Nausea/Vomiting Oxycodone/Acetaminophen (Acetaminophen/Oxycodone 325-5 Mg Tab) 1 tab PO Q4H PRN PRN Reason: Pain (moderate 4-6) Sodium Chloride (Sodium Chloride 0.9% 10 Ml Syringe) 10 ml FLUSH ASDIRECTED PRN PRN Reason: Keep Vein Open Last Admin: 12/05/20 14:19 Dose: 10 ml Documented by: Admin: 12/05/20 12:44 Dose: 10 ml Documented by: JASMIN Assessment/Plan Comment:: Cellulitis Left foot/ multiple foot ulcers/ DM type II , 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 Cults sent in ER, [place] Start Insulin Check Lipids profile Pt was made aware of the seriousness of foot ulcers in diabetic pts and the risk of amputation. DVT prophylaxis. PT : for dressing and may need a walker ?
[2020-12-05] MEDS: Piperacillin/Tazobactam 4.5 GM in Sodium Chloride 0.9% 100 ML IV SCH ×2 (16:59→23:33)
[2020-12-05] MEDS: Insulin Lispro 100 Units/ML 3 ML Vial SUBCUT SCH ×2 (16:59→20:43)
[2020-12-05] MEDS: Acetaminophen/oxyCODONE 325-5 MG Tab PO PRN (20:49)
[2020-12-06] MEDS: Piperacillin/Tazobactam 4.5 GM in Sodium Chloride 0.9% 100 ML IV SCH (06:04)
[2020-12-06] MEDS: Acetaminophen/oxyCODONE 325-5 MG Tab PO PRN ×3 (10:18→21:53)
[2020-12-06] MEDS: Enoxaparin 40 MG/0.4 ML Syringe SUBCUT SCH (10:18)
[2020-12-06] MEDS: Insulin Lispro 100 Units/ML 3 ML Vial SUBCUT SCH ×4 (10:19→21:20)
[2020-12-06] MEDS: Nicotine 21 MG/24 Hr Patch TRDERM SCH (10:20)
--- NOTE | 2020-12-06 10:56 | PCM.PN ---
- General Info Date of Service: 12/06/20 Functional Status: Reports: Pain Controlled, Tolerating Diet - Review of Systems General: Denies: Fever Pulmonary: Denies: Shortness of Breath Cardiovascular: Denies: Chest Pain Gastrointestinal: Denies: Abdominal Pain Neurological: Reports: No Symptoms Psychiatric: Reports: No Symptoms - Patient Data Vitals - Most Recent: Last Vital Signs Temp 97.6 F 12/06/20 08:00 Pulse 75 12/06/20 08:00 Resp 16 12/06/20 08:00 BP 133/76 12/06/20 08:00 Pulse Ox 97 12/06/20 08:00 Weight - Most Recent: 225 lb 12.8 oz I&O - Last 24 Hours: Intake & Output 12/05/20 12/06/20 12/06/20 22:59 06:59 14:59 Intake Total 240 850 Output Total 400 700 Balance -160 150 Lab Results Last 24 Hours: Laboratory Results - last 24 hr 12/05/20 12/05/20 12/05/20 Range/Units 12:22 12:22 12:22 WBC 8.9 (5.0-10.0) 10^3/uL RBC 4.71 (4.6-6.2) 10^6/uL Hgb 14.1 (14.0-18.0) g/dL Hct 40.4 (40.0-54.0) % MCV 85.8 (80-100) fL MCH 29.9 (27.0-34.0) pg MCHC 34.9 (33.0-35.0) g/dL Plt Count 260 (150-450) 10^3/uL Neut % (Auto) 76.1 H (42.2-75.2) % Lymph % (Auto) 14.1 L (20.5-50.1) % [place] % (Auto) 9.1 H (2-8) % Eos % (Auto) 0.5 L (1.0-3.0) % Baso % (Auto) 0.2 (0.0-1.0) % Sodium 136 (136-145) mmol/L Potassium 3.7 (3.5-5.1) mmol/L Chloride 99 (98-107) mmol/L Carbon Dioxide 30 (21-32) mmol/L Anion Gap 10.7 (7-13) mEq/L BUN 5 L (7-18) mg/dL Creatinine 0.76 (0.70-1.30) mg/dL Est Cr Clr Drug Dosing 138.20 mL/min Estimated GFR (MDRD) > 60 BUN/Creatinine Ratio 6.6 (No establ ref range) Glucose 353 H (70-99) mg/dL POC Glucose (70-99) mg/dL Hemoglobin A1c (<5.7) % Lactic Acid 1.5 (0.4-2.0) mmol/L Calcium 8.6 (8.5-10.1) mg/dL Total Bilirubin 0.4 (0.2-1.0) mg/dL AST 16 (15-37) U/L ALT 24 (16-63) U/L Alkaline Phosphatase 215 H (46-116) U/L C-Reactive Protein 6.2 H (0.0-0.9) mg/dL Total Protein 8.0 (6.4-8.2) g/dL Albumin 2.7 L (3.4-5.0) g/dL Globulin 5.3 Albumin/Globulin Ratio 0.51 Triglycerides (0-149) mg/dL Cholesterol (0-199) mg/dL LDL Cholesterol, Calc (0-100) mg/dL HDL Cholesterol (40-59) mg/dL Urine Color (YELLOW) Urine Appearance (CLEAR) Urine pH (5.0-9.0) Ur Specific [place] (1.005-1.030) Urine Protein (NEGATIVE) Urine Glucose (UA) (NEGATIVE) Urine Ketones (NEGATIVE) Urine Occult Blood (NEGATIVE) Urine Nitrite (NEGATIVE) Urine Bilirubin (NEGATIVE) Urine Urobilinogen (0.2-1.0) mg/dL Ur Leukocyte Esterase (NEGATIVE) Urine RBC (0-5) /HPF Urine WBC (0-5/HPF) /HPF Ur Epithelial Cells (NOT SEEN) /HPF Urine Bacteria (0-FEW/HPF) /HPF Urine Opiates Screen (NEGATIVE) Ur Oxycodone Screen (NEGATIVE) Urine Methadone Screen (NEGATIVE) Ur Barbiturates Screen (NEGATIVE) U Tricyclic Antidepress (NEGATIVE) Ur Phencyclidine Scrn (NEGATIVE) Ur Amphetamine Screen (NEGATIVE) U Methamphetamines Scrn (NEGATIVE) Urine MDMA Screen (NEGATIVE) U Benzodiazepines Scrn (NEGATIVE) Urine Cocaine Screen (NEGATIVE) U Marijuana (THC) Screen (NEGATIVE) Ketones Negative SARS-CoV-2 RNA (YVROSE) (NEGATIVE) 12/05/20 12/05/20 12/05/20 Range/Units 12:22 12:38 12:38 WBC (5.0-10.0) 10^3/uL RBC (4.6-6.2) 10^6/uL Hgb (14.0-18.0) g/dL Hct (40.0-54.0) % MCV (80-100) fL MCH (27.0-34.0) pg MCHC (33.0-35.0) g/dL Plt Count (150-450) 10^3/uL Neut % (Auto) (42.2-75.2) % Lymph % (Auto) (20.5-50.1) % [place] % (Auto) (2-8) % Eos % (Auto) (1.0-3.0) % Baso % (Auto) (0.0-1.0) % Sodium (136-145) mmol/L Potassium (3.5-5.1) mmol/L Chloride (98-107) mmol/L Carbon Dioxide (21-32) mmol/L Anion Gap (7-13) mEq/L BUN (7-18) mg/dL Creatinine (0.70-1.30) mg/dL Est Cr Clr Drug Dosing mL/min Estimated GFR (MDRD) BUN/Creatinine Ratio (No establ ref range) Glucose (70-99) mg/dL POC Glucose (70-99) mg/dL Hemoglobin A1c 8.1 H (<5.7) % Lactic Acid (0.4-2.0) mmol/L Calcium (8.5-10.1) mg/dL Total Bilirubin (0.2-1.0) mg/dL AST (15-37) U/L ALT (16-63) U/L Alkaline Phosphatase (46-116) U/L C-Reactive Protein (0.0-0.9) mg/dL Total Protein (6.4-8.2) g/dL Albumin (3.4-5.0) g/dL Globulin Albumin/Globulin Ratio Triglycerides (0-149) mg/dL Cholesterol (0-199) mg/dL LDL Cholesterol, Calc (0-100) mg/dL HDL Cholesterol (40-59) mg/dL Urine Color Yellow (YELLOW) Urine Appearance Clear (CLEAR) Urine pH 6.5 (5.0-9.0) Ur Specific [place] 1.015 (1.005-1.030) Urine Protein Negative (NEGATIVE) Urine Glucose (UA) 500 H (NEGATIVE) Urine Ketones Negative (NEGATIVE) Urine Occult Blood Trace-intact H (NEGATIVE) Urine Nitrite Negative (NEGATIVE) Urine Bilirubin Negative (NEGATIVE) Urine Urobilinogen 2.0 H (0.2-1.0) mg/dL Ur Leukocyte Esterase Negative (NEGATIVE) Urine RBC 0-5 (0-5) /HPF Urine WBC 0-5 (0-5/HPF) /HPF Ur Epithelial Cells Few (NOT SEEN) /HPF Urine Bacteria Few (0-FEW/HPF) /HPF Urine Opiates Screen Negative (NEGATIVE) Ur Oxycodone Screen Negative (NEGATIVE) Urine Methadone Screen Negative (NEGATIVE) Ur Barbiturates Screen Negative (NEGATIVE) U Tricyclic Antidepress Negative (NEGATIVE) Ur Phencyclidine Scrn Negative (NEGATIVE) Ur Amphetamine Screen Negative (NEGATIVE) U Methamphetamines Scrn Positive H (NEGATIVE) Urine MDMA Screen Negative (NEGATIVE) U Benzodiazepines Scrn Negative (NEGATIVE) Urine Cocaine Screen Negative (NEGATIVE) U Marijuana (THC) Screen Negative (NEGATIVE) Ketones SARS-CoV-2 RNA (YVROSE) (NEGATIVE) 12/05/20 12/05/20 12/05/20 Range/Units 13:00 16:27 20:05 WBC (5.0-10.0) 10^3/uL RBC (4.6-6.2) 10^6/uL Hgb (14.0-18.0) g/dL Hct (40.0-54.0) % MCV (80-100) fL MCH (27.0-34.0) pg MCHC (33.0-35.0) g/dL Plt Count (150-450) 10^3/uL Neut % (Auto) (42.2-75.2) % Lymph % (Auto) (20.5-50.1) % [place] % (Auto) (2-8) % Eos % (Auto) (1.0-3.0) % Baso % (Auto) (0.0-1.0) % Sodium (136-145) mmol/L Potassium (3.5-5.1) mmol/L Chloride (98-107) mmol/L Carbon Dioxide (21-32) mmol/L Anion Gap (7-13) mEq/L BUN (7-18) mg/dL Creatinine (0.70-1.30) mg/dL Est Cr Clr Drug Dosing mL/min Estimated GFR (MDRD) BUN/Creatinine Ratio (No establ ref range) Glucose (70-99) mg/dL POC Glucose 187 H 275 H (70-99) mg/dL Hemoglobin A1c (<5.7) % Lactic Acid (0.4-2.0) mmol/L Calcium (8.5-10.1) mg/dL Total Bilirubin (0.2-1.0) mg/dL AST (15-37) U/L ALT (16-63) U/L Alkaline Phosphatase (46-116) U/L C-Reactive Protein (0.0-0.9) mg/dL Total Protein (6.4-8.2) g/dL Albumin (3.4-5.0) g/dL Globulin Albumin/Globulin Ratio Triglycerides (0-149) mg/dL Cholesterol (0-199) mg/dL LDL Cholesterol, Calc (0-100) mg/dL HDL Cholesterol (40-59) mg/dL Urine Color (YELLOW) Urine Appearance (CLEAR) Urine pH (5.0-9.0) Ur Specific [place] (1.005-1.030) Urine Protein (NEGATIVE) Urine Glucose (UA) (NEGATIVE) Urine Ketones (NEGATIVE) Urine Occult Blood (NEGATIVE) Urine Nitrite (NEGATIVE) Urine Bilirubin (NEGATIVE) Urine Urobilinogen (0.2-1.0) mg/dL Ur Leukocyte Esterase (NEGATIVE) Urine RBC (0-5) /HPF Urine WBC (0-5/HPF) /HPF Ur Epithelial Cells (NOT SEEN) /HPF Urine Bacteria (0-FEW/HPF) /HPF Urine Opiates Screen (NEGATIVE) Ur Oxycodone Screen (NEGATIVE) Urine Methadone Screen (NEGATIVE) Ur Barbiturates Screen (NEGATIVE) U Tricyclic Antidepress (NEGATIVE) Ur Phencyclidine Scrn (NEGATIVE) Ur Amphetamine Screen (NEGATIVE) U Methamphetamines Scrn (NEGATIVE) Urine MDMA Screen (NEGATIVE) U Benzodiazepines Scrn (NEGATIVE) Urine Cocaine Screen (NEGATIVE) U Marijuana (THC) Screen (NEGATIVE) Ketones SARS-CoV-2 RNA ([facility]VROSE) Negative (NEGATIVE) 12/05/20 12/06/20 12/06/20 Range/Units 20:41 06:23 07:58 WBC (5.0-10.0) 10^3/uL RBC (4.6-6.2) 10^6/uL Hgb (14.0-18.0) g/dL Hct (40.0-54.0) % MCV (80-100) fL MCH (27.0-34.0) pg MCHC (33.0-35.0) g/dL Plt Count (150-450) 10^3/uL Neut % (Auto) (42.2-75.2) % Lymph % (Auto) (20.5-50.1) % [place] % (Auto) (2-8) % Eos % (Auto) (1.0-3.0) % Baso % (Auto) (0.0-1.0) % Sodium (136-145) mmol/L Potassium (3.5-5.1) mmol/L Chloride (98-107) mmol/L Carbon Dioxide (21-32) mmol/L Anion Gap (7-13) mEq/L BUN (7-18) mg/dL Creatinine (0.70-1.30) mg/dL Est Cr Clr Drug Dosing mL/min Estimated GFR (MDRD) BUN/Creatinine Ratio (No establ ref range) Glucose (70-99) mg/dL POC Glucose 280 H 162 H (70-99) mg/dL Hemoglobin A1c (<5.7) % Lactic Acid (0.4-2.0) mmol/L Calcium (8.5-10.1) mg/dL Total Bilirubin (0.2-1.0) mg/dL AST (15-37) U/L ALT (16-63) U/L Alkaline Phosphatase (46-116) U/L C-Reactive Protein (0.0-0.9) mg/dL Total Protein (6.4-8.2) g/dL Albumin (3.4-5.0) g/dL Globulin Albumin/Globulin Ratio Triglycerides 49 (0-149) mg/dL Cholesterol 77 (0-199) mg/dL LDL Cholesterol, Calc 28 (0-100) mg/dL HDL Cholesterol 39 L (40-59) mg/dL Urine Color (YELLOW) Urine Appearance (CLEAR) Urine pH (5.0-9.0) Ur Specific [place] (1.005-1.030) Urine Protein (NEGATIVE) Urine Glucose (UA) (NEGATIVE) Urine Ketones (NEGATIVE) Urine Occult Blood (NEGATIVE) Urine Nitrite (NEGATIVE) Urine Bilirubin (NEGATIVE) Urine Urobilinogen (0.2-1.0) mg/dL Ur Leukocyte Esterase (NEGATIVE) Urine RBC (0-5) /HPF Urine WBC (0-5/HPF) /HPF Ur Epithelial Cells (NOT SEEN) /HPF Urine Bacteria (0-FEW/HPF) /HPF Urine Opiates Screen (NEGATIVE) Ur Oxycodone Screen (NEGATIVE) Urine Methadone Screen (NEGATIVE) Ur Barbiturates Screen (NEGATIVE) U Tricyclic Antidepress (NEGATIVE) Ur Phencyclidine Scrn (NEGATIVE) Ur Amphetamine Screen (NEGATIVE) U Methamphetamines Scrn (NEGATIVE) Urine MDMA Screen (NEGATIVE) U Benzodiazepines Scrn (NEGATIVE) Urine Cocaine Screen (NEGATIVE) U Marijuana (THC) Screen (NEGATIVE) Ketones SARS-CoV-2 RNA ([facility]VROSE) (NEGATIVE) Med Orders - Current: Current Medications Acetaminophen (Acetaminophen 325 Mg Tab) 650 mg PO Q4H PRN PRN Reason: Pain (Mild 1-3)/fever Bisacodyl (Bisacodyl 5 Mg Tab) 5 mg PO DAILY PRN PRN Reason: Constipation Dextrose/Water (50% Dextrose In Water 50 Ml Syringe) 50 ml IVPUSH Q15M PRN PRN Reason: Hypoglycemia Docusate Sodium (Docusate Sodium 100 Mg Cap) 100 mg PO BID PRN PRN Reason: Constipation Enoxaparin Sodium (Enoxaparin 40 Mg/0.4 Ml Syringe) 40 mg SUBCUT DAILY [facility] Last Admin: 12/06/20 10:18 Dose: 40 mg Documented by: Glipizide (Glipizide 2.5 Mg Tab.Er) 2.5 mg PO DAILY [facility] Glucagon (Glucagon,Human Recombinant 1 Mg Vial) 1 mg IM Q15M PRN PRN Reason: Hypoglycemia Piperacillin Sod/Tazobactam (Sod 4.5 gm/ Sodium Chloride) 100 mls @ 200 mls/hr IV Q6HR [facility] Last Admin: 12/06/20 06:04 Dose: 200 mls/hr Documented by: Insulin Human Lispro (Insulin Lispro 100 Units/Ml 3 Ml Vial) 0 unit SUBCUT WITHMEALSANDBED [facility]; Protocol Last Admin: 12/06/20 10:19 Dose: 1 units Documented by: Losartan Potassium (Losartan 25 Mg Tab) 25 mg PO DAILY [facility] Miscellaneous Information (Check Nicotine Patch) 1 ea TRDERM BEDTIME [facility] Miscellaneous Information (Remove Nicotine Patch) 1 ea TRDERM DAILY [facility] Last Admin: 12/06/20 10:20 Dose: Not Given Documented by: Nicotine (Nicotine 21 Mg/24 Hr Patch) 21 mg TRDERM DAILY [facility] Last Admin: 12/06/20 10:20 Dose: Not Given Documented by: Non-Formulary Medication (Metformin [Glucophage]) 1,000 mg PO BIDMEALS [facility] Ondansetron HCl (Ondansetron 4 Mg/2 Ml Sdv) 4 mg IVPUSH Q6H PRN PRN Reason: Nausea/Vomiting Oxycodone/Acetaminophen (Acetaminophen/Oxycodone 325-5 Mg Tab) 1 tab PO Q4H PRN PRN Reason: Pain (moderate 4-6) Last Admin: 12/06/20 10:18 Dose: 1 tab Documented by: Sodium Chloride (Sodium Chloride 0.9% 10 Ml Syringe) 10 ml FLUSH ASDIRECTED PRN PRN Reason: Keep Vein Open Last Admin: 12/05/20 14:19 Dose: 10 ml Documented by: Discontinued Medications Vancomycin HCl 1.5 gm/ Premix 300 mls @ 200 mls/hr IV ONETIME ONE Stop: 12/05/20 14:29 Last Infusion: 12/05/20 14:14 Dose: Infused Documented by: Vancomycin HCl (Pharmacy To Dose - Vancomycin) 1 dose .XX ASDIRECTED [facility] - Exam Quality Assessment: No: Supplemental Oxygen General: Alert, Oriented Neck: No JVD Cardiovascular: Regular Rate, Regular Rhythm GI/Abdominal Exam: Soft Extremities: Other (swelling to left great toe slightly better. multilpe ulcers to B feet: dry. balc spot to the tips of toes.area of ) Peripheral Pulses: 0: Carotid (L), Carotid (R), Brachial (L), Brachial (R), Radial (L), Radial (R), Femoral (L), Femoral (R), Popliteal (L), Popliteal (R), Posterior Tibial (L), Posterior Tibial (R), Dorsalis Pedis (L), Dorsalis Pedis (R) - Patient Data Lab Results Last 24 hrs: Laboratory Results - last 24 hr 12/05/20 12/05/20 12/05/20 Range/Units 12:22 12:22 12:22 WBC 8.9 (5.0-10.0) 10^3/uL RBC 4.71 (4.6-6.2) 10^6/uL Hgb 14.1 (14.0-18.0) g/dL Hct 40.4 (40.0-54.0) % MCV 85.8 (80-100) fL MCH 29.9 (27.0-34.0) pg MCHC 34.9 (33.0-35.0) g/dL Plt Count 260 (150-450) 10^3/uL Neut % (Auto) 76.1 H (42.2-75.2) % Lymph % (Auto) 14.1 L (20.5-50.1) % [place] % (Auto) 9.1 H (2-8) % Eos % (Auto) 0.5 L (1.0-3.0) % Baso % (Auto) 0.2 (0.0-1.0) % Sodium 136 (136-145) mmol/L Potassium 3.7 (3.5-5.1) mmol/L Chloride 99 (98-107) mmol/L Carbon Dioxide 30 (21-32) mmol/L Anion Gap 10.7 (7-13) mEq/L BUN 5 L (7-18) mg/dL Creatinine 0.76 (0.70-1.30) mg/dL Est Cr Clr Drug Dosing 138.20 mL/min Estimated GFR (MDRD) > 60 BUN/Creatinine Ratio 6.6 (No establ ref range) Glucose 353 H (70-99) mg/dL POC Glucose (70-99) mg/dL Hemoglobin A1c (<5.7) % Lactic Acid 1.5 (0.4-2.0) mmol/L Calcium 8.6 (8.5-10.1) mg/dL Total Bilirubin 0.4 (0.2-1.0) mg/dL AST 16 (15-37) U/L ALT 24 (16-63) U/L Alkaline Phosphatase 215 H (46-116) U/L C-Reactive Protein 6.2 H (0.0-0.9) mg/dL Total Protein 8.0 (6.4-8.2) g/dL Albumin 2.7 L (3.4-5.0) g/dL Globulin 5.3 Albumin/Globulin Ratio 0.51 Triglycerides (0-149) mg/dL Cholesterol (0-199) mg/dL LDL Cholesterol, Calc (0-100) mg/dL HDL Cholesterol (40-59) mg/dL Urine Color (YELLOW) Urine Appearance (CLEAR) Urine pH (5.0-9.0) Ur Specific [place] (1.005-1.030) Urine Protein (NEGATIVE) Urine Glucose (UA) (NEGATIVE) Urine Ketones (NEGATIVE) Urine Occult Blood (NEGATIVE) Urine Nitrite (NEGATIVE) Urine Bilirubin (NEGATIVE) Urine Urobilinogen (0.2-1.0) mg/dL Ur Leukocyte Esterase (NEGATIVE) Urine RBC (0-5) /HPF Urine WBC (0-5/HPF) /HPF Ur Epithelial Cells (NOT SEEN) /HPF Urine Bacteria (0-FEW/HPF) /HPF Urine Opiates Screen (NEGATIVE) Ur Oxycodone Screen (NEGATIVE) Urine Methadone Screen (NEGATIVE) Ur Barbiturates Screen (NEGATIVE) U Tricyclic Antidepress (NEGATIVE) Ur Phencyclidine Scrn (NEGATIVE) Ur Amphetamine Screen (NEGATIVE) U Methamphetamines Scrn (NEGATIVE) Urine MDMA Screen (NEGATIVE) U Benzodiazepines Scrn (NEGATIVE) Urine Cocaine Screen (NEGATIVE) U Marijuana (THC) Screen (NEGATIVE) Ketones Negative SARS-CoV-2 RNA (YVROSE) (NEGATIVE) 12/05/20 12/05/20 12/05/20 Range/Units 12:22 12:38 12:38 WBC (5.0-10.0) 10^3/uL RBC (4.6-6.2) 10^6/uL Hgb (14.0-18.0) g/dL Hct (40.0-54.0) % MCV (80-100) fL MCH (27.0-34.0) pg MCHC (33.0-35.0) g/dL Plt Count (150-450) 10^3/uL Neut % (Auto) (42.2-75.2) % Lymph % (Auto) (20.5-50.1) % [place] % (Auto) (2-8) % Eos % (Auto) (1.0-3.0) % Baso % (Auto) (0.0-1.0) % Sodium (136-145) mmol/L Potassium (3.5-5.1) mmol/L Chloride (98-107) mmol/L Carbon Dioxide (21-32) mmol/L Anion Gap (7-13) mEq/L BUN (7-18) mg/dL Creatinine (0.70-1.30) mg/dL Est Cr Clr Drug Dosing mL/min Estimated GFR (MDRD) BUN/Creatinine Ratio (No establ ref range) Glucose (70-99) mg/dL POC Glucose (70-99) mg/dL Hemoglobin A1c 8.1 H (<5.7) % Lactic Acid (0.4-2.0) mmol/L Calcium (8.5-10.1) mg/dL Total Bilirubin (0.2-1.0) mg/dL AST (15-37) U/L ALT (16-63) U/L Alkaline Phosphatase (46-116) U/L C-Reactive Protein (0.0-0.9) mg/dL Total Protein (6.4-8.2) g/dL Albumin (3.4-5.0) g/dL Globulin Albumin/Globulin Ratio Triglycerides (0-149) mg/dL Cholesterol (0-199) mg/dL LDL Cholesterol, Calc (0-100) mg/dL HDL Cholesterol (40-59) mg/dL Urine Color Yellow (YELLOW) Urine Appearance Clear (CLEAR) Urine pH 6.5 (5.0-9.0) Ur Specific [place] 1.015 (1.005-1.030) Urine Protein Negative (NEGATIVE) Urine Glucose (UA) 500 H (NEGATIVE) Urine Ketones Negative (NEGATIVE) Urine Occult Blood Trace-intact H (NEGATIVE) Urine Nitrite Negative (NEGATIVE) Urine Bilirubin Negative (NEGATIVE) Urine Urobilinogen 2.0 H (0.2-1.0) mg/dL Ur Leukocyte Esterase Negative (NEGATIVE) Urine RBC 0-5 (0-5) /HPF Urine WBC 0-5 (0-5/HPF) /HPF Ur Epithelial Cells Few (NOT SEEN) /HPF Urine Bacteria Few (0-FEW/HPF) /HPF Urine Opiates Screen Negative (NEGATIVE) Ur Oxycodone Screen Negative (NEGATIVE) Urine Methadone Screen Negative (NEGATIVE) Ur Barbiturates Screen Negative (NEGATIVE) U Tricyclic Antidepress Negative (NEGATIVE) Ur Phencyclidine Scrn Negative (NEGATIVE) Ur Amphetamine Screen Negative (NEGATIVE) U Methamphetamines Scrn Positive H (NEGATIVE) Urine MDMA Screen Negative (NEGATIVE) U Benzodiazepines Scrn Negative (NEGATIVE) Urine Cocaine Screen Negative (NEGATIVE) U Marijuana (THC) Screen Negative (NEGATIVE) Ketones SARS-CoV-2 RNA ([facility]VROSE) (NEGATIVE) 12/05/20 12/05/20 12/05/20 Range/Units 13:00 16:27 20:05 WBC (5.0-10.0) 10^3/uL RBC (4.6-6.2) 10^6/uL Hgb (14.0-18.0) g/dL Hct (40.0-54.0) % MCV (80-100) fL MCH (27.0-34.0) pg MCHC (33.0-35.0) g/dL Plt Count (150-450) 10^3/uL Neut % (Auto) (42.2-75.2) % Lymph % (Auto) (20.5-50.1) % [place] % (Auto) (2-8) % Eos % (Auto) (1.0-3.0) % Baso % (Auto) (0.0-1.0) % Sodium (136-145) mmol/L Potassium (3.5-5.1) mmol/L Chloride (98-107) mmol/L Carbon Dioxide (21-32) mmol/L Anion Gap (7-13) mEq/L BUN (7-18) mg/dL Creatinine (0.70-1.30) mg/dL Est Cr Clr Drug Dosing mL/min Estimated GFR (MDRD) BUN/Creatinine Ratio (No establ ref range) Glucose (70-99) mg/dL POC Glucose 187 H 275 H (70-99) mg/dL Hemoglobin A1c (<5.7) % Lactic Acid (0.4-2.0) mmol/L Calcium (8.5-10.1) mg/dL Total Bilirubin (0.2-1.0) mg/dL AST (15-37) U/L ALT (16-63) U/L Alkaline Phosphatase (46-116) U/L C-Reactive Protein (0.0-0.9) mg/dL Total Protein (6.4-8.2) g/dL Albumin (3.4-5.0) g/dL Globulin Albumin/Globulin Ratio Triglycerides (0-149) mg/dL Cholesterol (0-199) mg/dL LDL Cholesterol, Calc (0-100) mg/dL HDL Cholesterol (40-59) mg/dL Urine Color (YELLOW) Urine Appearance (CLEAR) Urine pH (5.0-9.0) Ur Specific [place] (1.005-1.030) Urine Protein (NEGATIVE) Urine Glucose (UA) (NEGATIVE) Urine Ketones (NEGATIVE) Urine Occult Blood (NEGATIVE) Urine Nitrite (NEGATIVE) Urine Bilirubin (NEGATIVE) Urine Urobilinogen (0.2-1.0) mg/dL Ur Leukocyte Esterase (NEGATIVE) Urine RBC (0-5) /HPF Urine WBC (0-5/HPF) /HPF Ur Epithelial Cells (NOT SEEN) /HPF Urine Bacteria (0-FEW/HPF) /HPF Urine Opiates Screen (NEGATIVE) Ur Oxycodone Screen (NEGATIVE) Urine Methadone Screen (NEGATIVE) Ur Barbiturates Screen (NEGATIVE) U Tricyclic Antidepress (NEGATIVE) Ur Phencyclidine Scrn (NEGATIVE) Ur Amphetamine Screen (NEGATIVE) U Methamphetamines Scrn (NEGATIVE) Urine MDMA Screen (NEGATIVE) U Benzodiazepines Scrn (NEGATIVE) Urine Cocaine Screen (NEGATIVE) U Marijuana (THC) Screen (NEGATIVE) Ketones SARS-CoV-2 RNA ([facility]VROSE) Negative (NEGATIVE) 12/05/20 12/06/20 12/06/20 Range/Units 20:41 06:23 07:58 WBC (5.0-10.0) 10^3/uL RBC (4.6-6.2) 10^6/uL Hgb (14.0-18.0) g/dL Hct (40.0-54.0) % MCV (80-100) fL MCH (27.0-34.0) pg MCHC (33.0-35.0) g/dL Plt Count (150-450) 10^3/uL Neut % (Auto) (42.2-75.2) % Lymph % (Auto) (20.5-50.1) % [place] % (Auto) (2-8) % Eos % (Auto) (1.0-3.0) % Baso % (Auto) (0.0-1.0) % Sodium (136-145) mmol/L Potassium (3.5-5.1) mmol/L Chloride (98-107) mmol/L Carbon Dioxide (21-32) mmol/L Anion Gap (7-13) mEq/L BUN (7-18) mg/dL Creatinine (0.70-1.30) mg/dL Est Cr Clr Drug Dosing mL/min Estimated GFR (MDRD) BUN/Creatinine Ratio (No establ ref range) Glucose (70-99) mg/dL POC Glucose 280 H 162 H (70-99) mg/dL Hemoglobin A1c (<5.7) % Lactic Acid (0.4-2.0) mmol/L Calcium (8.5-10.1) mg/dL Total Bilirubin (0.2-1.0) mg/dL AST (15-37) U/L ALT (16-63) U/L Alkaline Phosphatase (46-116) U/L C-Reactive Protein (0.0-0.9) mg/dL Total Protein (6.4-8.2) g/dL Albumin (3.4-5.0) g/dL Globulin Albumin/Globulin Ratio Triglycerides 49 (0-149) mg/dL Cholesterol 77 (0-199) mg/dL LDL Cholesterol, Calc 28 (0-100) mg/dL HDL Cholesterol 39 L (40-59) mg/dL Urine Color (YELLOW) Urine Appearance (CLEAR) Urine pH (5.0-9.0) Ur Specific [place] (1.005-1.030) Urine Protein (NEGATIVE) Urine Glucose (UA) (NEGATIVE) Urine Ketones (NEGATIVE) Urine Occult Blood (NEGATIVE) Urine Nitrite (NEGATIVE) Urine Bilirubin (NEGATIVE) Urine Urobilinogen (0.2-1.0) mg/dL Ur Leukocyte Esterase (NEGATIVE) Urine RBC (0-5) /HPF Urine WBC (0-5/HPF) /HPF Ur Epithelial Cells (NOT SEEN) /HPF Urine Bacteria (0-FEW/HPF) /HPF Urine Opiates Screen (NEGATIVE) Ur Oxycodone Screen (NEGATIVE) Urine Methadone Screen (NEGATIVE) Ur Barbiturates Screen (NEGATIVE) U Tricyclic Antidepress (NEGATIVE) Ur Phencyclidine Scrn (NEGATIVE) Ur Amphetamine Screen (NEGATIVE) U Methamphetamines Scrn (NEGATIVE) Urine MDMA Screen (NEGATIVE) U Benzodiazepines Scrn (NEGATIVE) Urine Cocaine Screen (NEGATIVE) U Marijuana (THC) Screen (NEGATIVE) Ketones SARS-CoV-2 RNA (YVROSE) (NEGATIVE) Result Diagrams: 12/05/20 12:22 12/05/20 12:22 Sepsis Event Note - Evaluation Sepsis Screening Result: No Definite Risk - Focused Exam Vital Signs: Vital Signs Temp Pulse Resp BP Pulse Ox 12/06/20 08:00 97.6 F 75 16 133/76 97 12/06/20 04:00 98.6 F 78 20 145/68 H 100 12/06/20 00:00 99.0 F 83 20 139/75 100 - Problem List Review Problem List Initiated/Reviewed/Updated: No - My Orders Last 24 Hours: My Active Orders 12/05/20 15:59 Patient Status [ADT] Routine Blood Glucose Check, Bedside [RC] WITHMEALSANDBED Oxygen Therapy [RC] PRN Up ad Tata [RC] ASDIRECTED VTE/DVT Education [RC] PER UNIT ROUTINE Vital Signs [RC] 00,04,08,12,16,20 PT Evaluation and Treatment [CONS] Routine Acetaminophen [TylenoL] 650 mg PO Q4H PRN Acetaminophen/oxyCODONE [Percocet 325-5 MG] 1 tab PO Q4H PRN Docusate Sodium [Colace] 100 mg PO BID PRN Ondansetron [Zofran] 4 mg IVPUSH Q6H PRN bisacodyL [Dulcolax] 5 mg PO DAILY PRN Resuscitation Status Routine 12/05/20 16:00 Intake and Output [RC] 06,,12/05/20 16:07 Dextrose 50% in Water 50 ml IVPUSH Q15M PRN Glucagon,Human Recombinant [GlucaGen] 1 mg IM Q15M PRN 12/05/20 16:39 Dressing Change [Wound Care] [RC] 12/05/20 Dinner Consistent Carbohydrate Diet [DIET] 12/05/20 18:00 Insulin Lispro [HumaLOG] See Protocol SUBCUT WITHMEALSANDBED Piperacillin/Tazobactam [Zosyn] 4.5 gm Sodium Chloride 0.9% [Normal Saline] 100 ml IV Q6HR 12/06/20 09:00 Enoxaparin [Lovenox] 40 mg SUBCUT DAILY Nicotine [Habitrol] 21 mg TRDERM DAILY Remove Patch 1 ea TRDERM DAILY 12/06/20 10:45 Losartan [Cozaar] 25 mg PO DAILY 12/06/20 12:00 glipiZIDE [Glucotrol XL] 2.5 mg PO DAILY 12/06/20 18:00 metFORMIN [Glucophage] 1,000 mg PO BIDMEALS 12/06/20 21:00 Check Patch 1 ea TRDERM BEDTIME - Plan Plan:: Cellulitis Left foot/ multiple foot ulcers/ early gangrene to toes/ osteomyelitis to left great toe. DM type II , 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 Cults sent in ER, [place] Start Metformin and add Glipizide. Lipids profile: Ok Pt was made aware of the seriousness of foot ulcers in diabetic pts and the risk of amputation. advised to stop smoking. Called [facility] for transfer for podiatry/ Vascular consultation. awaiting bed availability. DVT prophylaxis. PT : for dressing and may need a walker ?
[2020-12-06] MEDS: glipiZIDE 2.5 MG Tab.ER PO SCH (13:12)
[2020-12-06] MEDS: Losartan 25 MG Tab PO SCH (13:13)
[2020-12-06] MEDS: metFORMIN 500 MG Tab PO SCH ×2 (13:13→18:22)
[2020-12-06] MEDS: Clindamycin Phosphate 900 MG in Sodium Chloride 0.9% 100 ML IV SCH ×2 (15:06→21:10)
[2020-12-07] MEDS: Clindamycin Phosphate 900 MG in Sodium Chloride 0.9% 100 ML IV SCH ×3 (05:09→21:17)
[2020-12-07] MEDS: Acetaminophen/oxyCODONE 325-5 MG Tab PO PRN ×3 (05:18→21:19)
[2020-12-07] MEDS: glipiZIDE 2.5 MG Tab.ER PO SCH (08:39)
[2020-12-07] MEDS: Losartan 25 MG Tab PO SCH (08:39)
[2020-12-07] MEDS: Insulin Lispro 100 Units/ML 3 ML Vial SUBCUT SCH ×4 (08:40→21:18)
[2020-12-07] MEDS: metFORMIN 500 MG Tab PO SCH ×2 (08:40→17:34)
[2020-12-07] MEDS: Enoxaparin 40 MG/0.4 ML Syringe SUBCUT SCH (08:40)
[2020-12-07] MEDS: Nicotine 21 MG/24 Hr Patch TRDERM SCH (08:41)
--- NOTE | 2020-12-07 11:30 | PCM.PN ---
- General Info Date of Service: 12/07/20 Functional Status: Reports: Pain Controlled, Tolerating Diet, Ambulating - Review of Systems General: Denies: Fever, Chills Pulmonary: Denies: Shortness of Breath Cardiovascular: Denies: Chest Pain Skin: Reports: Other (swelling to Left great toe is mildy better. ) Neurological: Reports: No Symptoms Psychiatric: Reports: No Symptoms - Patient Data Vitals - Most Recent: Last Vital Signs Temp 97.4 F 12/07/20 07:36 Pulse 64 12/07/20 07:36 Resp 20 12/07/20 07:36 BP 111/71 12/07/20 08:39 Pulse Ox 98 12/07/20 07:36 Weight - Most Recent: 225 lb 12.8 oz I&O - Last 24 Hours: Intake & Output 12/06/20 12/07/20 12/07/20 22:59 06:59 14:59 Intake Total 1020 120 325 Balance 1020 120 325 Lab Results Last 24 Hours: Laboratory Results - last 24 hr 12/06/20 12/06/20 12/06/20 Range/Units 12:11 16:47 21:01 POC Glucose 263 H 219 H 160 H (70-99) mg/dL 12/07/20 Range/Units 07:44 POC Glucose 134 H (70-99) mg/dL Samuel Results Last 24 Hours: Microbiology 12/05/20 12:28 Aerobic Blood Culture - Preliminary Blood - Venous - Iv Start NO GROWTH AFTER 1 DAY Anaerobic Blood Culture - Preliminary NO GROWTH AFTER 1 DAY 12/05/20 12:22 Aerobic Blood Culture - Preliminary Blood - Arm, Left NO GROWTH AFTER 1 DAY Anaerobic Blood Culture - Preliminary NO GROWTH AFTER 1 DAY Med Orders - Current: Current Medications Acetaminophen (Acetaminophen 325 Mg Tab) 650 mg PO Q4H PRN PRN Reason: Pain (Mild 1-3)/fever Bisacodyl (Bisacodyl 5 Mg Tab) 5 mg PO DAILY PRN PRN Reason: Constipation Dextrose/Water (50% Dextrose In Water 50 Ml Syringe) 50 ml IVPUSH Q15M PRN PRN Reason: Hypoglycemia Docusate Sodium (Docusate Sodium 100 Mg Cap) 100 mg PO BID PRN PRN Reason: Constipation Enoxaparin Sodium (Enoxaparin 40 Mg/0.4 Ml Syringe) 40 mg SUBCUT DAILY [facility] Last Admin: 12/07/20 08:40 Dose: 40 mg Documented by: Glipizide (Glipizide 2.5 Mg Tab.Er) 2.5 mg PO DAILY [facility] Last Admin: 12/07/20 08:39 Dose: 2.5 mg Documented by: Glucagon (Glucagon,Human Recombinant 1 Mg Vial) 1 mg IM Q15M PRN PRN Reason: Hypoglycemia Clindamycin Phosphate 900 mg/ (Sodium Chloride) 106 mls @ 200 mls/hr IV Q8HR [facility] Last Admin: 12/07/20 05:09 Dose: 200 mls/hr Documented by: Insulin Human Lispro (Insulin Lispro 100 Units/Ml 3 Ml Vial) 0 unit SUBCUT WITHMEALSANDBED [facility]; Protocol Last Admin: 12/07/20 08:40 Dose: Not Given Documented by: Losartan Potassium (Losartan 25 Mg Tab) 25 mg PO DAILY [facility] Last Admin: 12/07/20 08:39 Dose: 25 mg Documented by: Metformin HCl (Metformin 500 Mg Tab) 500 mg PO BIDMEALS [facility] Last Admin: 12/07/20 08:40 Dose: 500 mg Documented by: Miscellaneous Information (Check Nicotine Patch) 1 ea TRDERM BEDTIME [facility] Last Admin: 12/06/20 22:51 Dose: Not Given Documented by: Miscellaneous Information (Remove Nicotine Patch) 1 ea TRDERM DAILY [facility] Last Admin: 12/07/20 08:41 Dose: Not Given Documented by: Nicotine (Nicotine 21 Mg/24 Hr Patch) 21 mg TRDERM DAILY [facility] Last Admin: 12/07/20 08:41 Dose: Not Given Documented by: Ondansetron HCl (Ondansetron 4 Mg/2 Ml Sdv) 4 mg IVPUSH Q6H PRN PRN Reason: Nausea/Vomiting Oxycodone/Acetaminophen (Acetaminophen/Oxycodone 325-5 Mg Tab) 1 tab PO Q4H PRN PRN Reason: Pain (moderate 4-6) Last Admin: 12/07/20 05:18 Dose: 1 tab Documented by: Sodium Chloride (Sodium Chloride 0.9% 10 Ml Syringe) 10 ml FLUSH ASDIRECTED PRN PRN Reason: Keep Vein Open Last Admin: 12/05/20 14:19 Dose: 10 ml Documented by: Discontinued Medications Vancomycin HCl 1.5 gm/ Premix 300 mls @ 200 mls/hr IV ONETIME ONE Stop: 12/05/20 14:29 Last Infusion: 12/05/20 14:14 Dose: Infused Documented by: Piperacillin Sod/Tazobactam (Sod 4.5 gm/ Sodium Chloride) 100 mls @ 200 mls/hr IV Q6HR [facility] Last Admin: 12/06/20 06:04 Dose: 200 mls/hr Documented by: Vancomycin HCl (Pharmacy To Dose - Vancomycin) 1 dose .XX ASDIRECTED [facility] - Patient Data Lab Results Last 24 hrs: Laboratory Results - last 24 hr 12/06/20 12/06/20 12/06/20 Range/Units 12:11 16:47 21:01 POC Glucose 263 H 219 H 160 H (70-99) mg/dL 12/07/20 Range/Units 07:44 POC Glucose 134 H (70-99) mg/dL Result Diagrams: 12/05/20 12:22 12/05/20 12:22 Samuel Results Last 24 hrs: Microbiology 12/05/20 12:28 Aerobic Blood Culture - Preliminary Blood - Venous - Iv Start NO GROWTH AFTER 1 DAY Anaerobic Blood Culture - Preliminary NO GROWTH AFTER 1 DAY 12/05/20 12:22 Aerobic Blood Culture - Preliminary Blood - Arm, Left NO GROWTH AFTER 1 DAY Anaerobic Blood Culture - Preliminary NO GROWTH AFTER 1 DAY Sepsis Event Note - Evaluation Sepsis Screening Result: No Definite Risk - Focused Exam Vital Signs: Vital Signs Temp Pulse Resp BP BP BP Pulse Ox 12/07/20 08:39 111/71 12/07/20 07:36 97.4 F 64 20 111/71 98 12/07/20 04:00 98 F 96 14 119/74 94 L 12/07/20 00:00 99.1 F 77 14 116/73 98 - Problem List Review Problem List Initiated/Reviewed/Updated: No - My Orders Last 24 Hours: My Active Orders 12/06/20 12:00 Losartan [Cozaar] 25 mg PO DAILY glipiZIDE [Glucotrol XL] 2.5 mg PO DAILY metFORMIN [Glucophage] 500 mg PO BIDMEALS 12/06/20 14:00 Clindamycin Phosphate [Cleocin] 900 mg Sodium Chloride 0.9% [Normal Saline] 100 ml IV Q8HR 12/06/20 21:00 Check Patch 1 ea [facility]KHDEVDERAnupam BEDTIME - Plan Plan:: Cellulitis Left foot/ multiple foot ulcers/ early gangrene to toes/ osteomyelitis to left great toe. DM type II , noncompliance/ Amphetamine abuse. Cults sent in ER, Handyn Start Metformin and add Glipizide. Lipids profile: Ok Pt was made aware of the seriousness of foot ulcers in diabetic pts and the risk of amputation. advised to stop smoking. Called [facility] for transfer for podiatry/ Vascular consultation. awaiting bed availability. DVT prophylaxis. PT : for dressing and may need a walker.
[2020-12-07 19:38] VITALS: BP 129/73; PULSE 72
--- NOTE | 2020-12-08 01:32 | PCM.DCSUM1 ---
Discharge Summary - Hospital Course Free Text/Narrative:: Pt sent to ER on Dec 05 by ambulance from [facility] with cellulitis left foot, B/L foot/toe ulcers, and uncontrolled DM type 2. Pt was seen here on 12/02/20 in ER but left the ER against medical advise. Pt is now willing to have medical evaluation and treatment. Pt has not taken any medications, diabetic or other, for few months. The pt admits to pain in the feet and left lower leg. He denies fever or chills. EXAMINATION: Foot 2V Lt SEX: Male AGE: 50 years CLINICAL HISTORY: 50-year-old diabetic male with ulcers first toe, both feet (left foot "cellulitis"). No previous comparisons left foot. Interpretation (AP lateral left foot) ABNORMAL. 1. Soft tissue swelling great toe. *Osteolytic destructive demineralization with fragmentation distal phalanx left great toe. 2. Focal cortical erosion and early osteolytic destructive changes distal end of the proximal phalanx, medially. 3. No foreign bodies. 4. Arteriovascular calcifications in the soft tissues. Generally good bone mineral density for age and gender. 5. No sign of other infection or fracture/dislocation left foot. EXAMINATION: Foot 2V Rt SEX: Male AGE: 50 years CLINICAL HISTORY: 50-year-old diabetic male right great toe ulcer. Interpretation: (AP lateral right foot) 1. Pes cavus. Tiny heel spur at the insertion plantar aponeurosis base of the os calcis. 2. Homogeneous normal bone mineral density for age and gender. 3. No foreign bodies or inflammatory periostitis. 4. Apparent old infection and/or traumatic avulsion (corner fracture fragment), distal-medial aspect, proximal phalanx right great toe. No current erosive or lytic destructive changes bones of the right foot. 5. No acute fracture or dislocation. Cellulitis Left foot/ multiple foot ulcers/ osteomyelitis to left great toe/ early gangrene to tips of toes/. admitted awaiting bed availability of higher level of care. DVT prophylaxis. DM type II , noncompliance/ Amphetamine abuse. Cults sent in ER, Clindamycin: cellulitis mildly improved. B cult are neg so far. Start Metformin and add Glipizide. blood sugar is OK Lipids profile: Ok Pt was made aware of the seriousness of foot ulcers in diabetic pts and the risk of amputation. advised to stop smoking. [facility] accepted transfer for possible podiatry/ Vascular consultation. Dr. Guillen - Discharge Data Discharge Date: 12/08/20 Discharge Disposition: DC/Tfer to Acute Hospital 02 Condition: Good - Referral to Home Health Primary Care Physician: PCP None - Patient Summary/Data Consults: Consultations 12/05/20 15:59 PT Evaluation and Treatment [CONS] Routine - Discharge Plan *PRESCRIPTION DRUG MONITORING PROGRAM REVIEWED*: No *COPY OF PRESCRIPTION DRUG MONITORING REPORT IN PATIENT DIE[place]: No Home Medications: Home Meds metFORMIN [Glucophage] 1,000 mg PO BIDMEALS 09/05/14 [History] Losartan [Cozaar] 25 mg PO DAILY 05/23/17 [History] Nicotine [Habitrol] 21 mg TRDERM DAILY patch 12/08/20 [Rx] Oxygen Therapy Mode: Room Air Forms: ED Department Discharge Referrals: PCP,None [Primary Care Provider] - - Discharge Summary/Plan Comment DC Time >30 min.: Yes Total # of Minutes for Discharge Time: 35 min - General Info Date of Service: 12/08/20 Functional Status: Reports: Pain Controlled, Tolerating Diet - Review of Systems General: Denies: Fever Pulmonary: Denies: Shortness of Breath Cardiovascular: Denies: Chest Pain Gastrointestinal: Denies: Abdominal Pain Neurological: Denies: Confusion Psychiatric: Denies: Confusion - Patient Data Vitals - Most Recent: Last Vital Signs Temp 97.5 F 12/07/20 19:37 Pulse 72 12/07/20 19:37 Resp 20 12/07/20 19:37 BP 129/73 12/07/20 19:37 Pulse Ox 97 12/07/20 19:37 Weight - Most Recent: 225 lb 12.8 oz I&O - Last 24 hours: Intake & Output 12/07/20 12/07/20 12/08/20 14:59 22:59 06:59 Intake Total 865 2290 Output Total 2 Balance 865 2288 Lab Results - Last 24 hrs: Laboratory Results - last 24 hr 12/07/20 12/07/20 12/07/20 Range/Units 07:44 11:38 16:52 POC Glucose 134 H 173 H 187 H (70-99) mg/dL 12/07/20 Range/Units 20:19 POC Glucose 198 H (70-99) mg/dL [facility] Results - Last 24 hrs: Microbiology 12/05/20 12:28 Aerobic Blood Culture - Preliminary Blood - Venous - Iv Start NO GROWTH AFTER 2 DAYS Anaerobic Blood Culture - Preliminary NO GROWTH AFTER 2 DAYS 12/05/20 12:22 Aerobic Blood Culture - Preliminary Blood - Arm, Left NO GROWTH AFTER 2 DAYS Anaerobic Blood Culture - Preliminary NO GROWTH AFTER 2 DAYS Med Orders - Current: Current Medications Acetaminophen (Acetaminophen 325 Mg Tab) 650 mg PO Q4H PRN PRN Reason: Pain (Mild 1-3)/fever Bisacodyl (Bisacodyl 5 Mg Tab) 5 mg PO DAILY PRN PRN Reason: Constipation Dextrose/Water (50% Dextrose In Water 50 Ml Syringe) 50 ml IVPUSH Q15M PRN PRN Reason: Hypoglycemia Docusate Sodium (Docusate Sodium 100 Mg Cap) 100 mg PO BID PRN PRN Reason: Constipation Enoxaparin Sodium (Enoxaparin 40 Mg/0.4 Ml Syringe) 40 mg SUBCUT DAILY [facility] Last Admin: 12/07/20 08:40 Dose: 40 mg Documented by: Glipizide (Glipizide 2.5 Mg Tab.Er) 2.5 mg PO DAILY [facility] Last Admin: 12/07/20 08:39 Dose: 2.5 mg Documented by: Glucagon (Glucagon,Human Recombinant 1 Mg Vial) 1 mg IM Q15M PRN PRN Reason: Hypoglycemia Clindamycin Phosphate 900 mg/ (Sodium Chloride) 106 mls @ 200 mls/hr IV Q8HR [facility] Last Admin: 12/07/20 21:17 Dose: 200 mls/hr Documented by: Insulin Human Lispro (Insulin Lispro 100 Units/Ml 3 Ml Vial) 0 unit SUBCUT WITHMEALSANDBED [facility]; Protocol Last Admin: 12/07/20 21:18 Dose: 1 units Documented by: Losartan Potassium (Losartan 25 Mg Tab) 25 mg PO DAILY [facility] Last Admin: 12/07/20 08:39 Dose: 25 mg Documented by: Metformin HCl (Metformin 500 Mg Tab) 500 mg PO BIDMEALS [facility] Last Admin: 12/07/20 17:34 Dose: 500 mg Documented by: Miscellaneous Information (Check Nicotine Patch) 1 ea TRDERM BEDTIME [facility] Last Admin: 12/07/20 21:18 Dose: Not Given Documented by: Miscellaneous Information (Remove Nicotine Patch) 1 ea TRDERM DAILY [facility] Last Admin: 12/07/20 08:41 Dose: Not Given Documented by: Nicotine (Nicotine 21 Mg/24 Hr Patch) 21 mg TRDERM DAILY [facility] Last Admin: 12/07/20 08:41 Dose: Not Given Documented by: Ondansetron HCl (Ondansetron 4 Mg/2 Ml Sdv) 4 mg IVPUSH Q6H PRN PRN Reason: Nausea/Vomiting Oxycodone/Acetaminophen (Acetaminophen/Oxycodone 325-5 Mg Tab) 1 tab PO Q4H PRN PRN Reason: Pain (moderate 4-6) Last Admin: 12/07/20 21:19 Dose: 1 tab Documented by: Sodium Chloride (Sodium Chloride 0.9% 10 Ml Syringe) 10 ml FLUSH ASDIRECTED PRN PRN Reason: Keep Vein Open Last Admin: 12/05/20 14:19 Dose: 10 ml Documented by: Discontinued Medications Vancomycin HCl 1.5 gm/ Premix 300 mls @ 200 mls/hr IV ONETIME ONE Stop: 12/05/20 14:29 Last Infusion: 12/05/20 14:14 Dose: Infused Documented by: Piperacillin Sod/Tazobactam (Sod 4.5 gm/ Sodium Chloride) 100 mls @ 200 mls/hr IV Q6HR [facility] Last Admin: 12/06/20 06:04 Dose: 200 mls/hr Documented by: Vancomycin HCl (Pharmacy To Dose - Vancomycin) 1 dose .XX ASDIRECTED [facility] - Exam Quality Assessment: Denies: Supplemental Oxygen General: Denies: Oriented Neck: Reports: Trachea Midline Lungs: Reports: Clear to Auscultation, Normal Respiratory Effort Cardiovascular: Reports: Regular Rhythm GI/Abdominal Exam: Soft, Non-Tender (Male) Exam: Deferred Rectal (Males) Exam: Deferred Extremities: No Pedal Edema Skin: Reports: Other (swelling to left great toe. ischemic changes ( black spots) on the tips of multiple toes. Multiple dry ulcers to planter aspect of B feet. ) Neurological: Reports: No New Focal Deficit Psy/Mental Status: Reports: Alert, Normal Affect
[2020-12-08] MEDS: Acetaminophen/oxyCODONE 325-5 MG Tab PO PRN (01:40)
== END 2020-12-08 02:00 | DRG 638 ==
LOC: DL.ED 11:55 → DL.MS 13:49
PROVIDERS: ADMIT Internal Medicine; ATTEND Internal Medicine
DX: E11.69 Type 2 diabetes mellitus with other specified complication (principal); M86.8X7 Other osteomyelitis, ankle and foot; E11.52 Type 2 diabetes mellitus with diabetic peripheral angiopathy with gangrene; I96 Gangrene, not elsewhere classified; F15.10 Other stimulant abuse, uncomplicated; I10 Essential (primary) hypertension; F32.9 Major depressive disorder, single episode, unspecified; Z20.822 Contact with and (suspected) exposure to COVID-19; Z91.14 Patient's other noncompliance with medication regimen; Z79.4 Long term (current) use of insulin
CPT/HCPCS: 36415; 73620-LT; 73620-RT; 80053; 80061; 80305-QW; 81001; 82009; 82947; 83036; 83605; 85025; 86140; 87040; 96365; 99285-25; A9270-GY; J1650; J1815-GY; J2543; J3370; J3490; U0002

== ENCOUNTER 2021-03-01 03:47 | Inpatient (IN) | payer OTHER ==
--- NOTE | 2021-03-01 04:05 | EDM.PDOC ---
ED HPI GENERAL MEDICAL PROBLEM - General Chief Complaint: Lower Extremity Injury/Pain Stated Complaint: SPLK - AMBULANCE Time Seen by Provider: 03/01/21 03:50 Source of Information: Reports: Patient, EMS History Limitations: Reports: No Limitations - History of Present Illness INITIAL COMMENTS - FREE TEXT/NARRATIVE: This 50 yo male patient was brought to the ED due to right foot pain, right upper quadrant abdominal pain and not feeling well. The patient reports his right foot has been getting worse over the past 2-3 weeks. The patient reports his abdominal pain started at least 2 weeks ago and has continued to get worse. The patient reports he is currently homeless and has not been able to find anywhere to live. The patient reports he has been drinking some alcohol, but states he has not been drinking too much. Onset: Unknown/Unsure Duration: Week(s):, Getting Worse, Waxing/Waning Location: Reports: Lower Extremity, Right Quality: Reports: Ache, Burning, Sharp Severity: Severe Improves with: Reports: None Worsens with: Reports: None Context: Reports: Other Associated Symptoms: Reports: No Other Symptoms Right Foot Pain Score (Numeric/FACES): 10 Right Upper Abdomen Pain Score (Numeric/FACES): 6 - Related Data Allergies Allergy/AdvReac Type Severity Reaction Status Date / Time ibuprofen AdvReac Mild Abdominal Verified 03/01/21 04:00 Pain Home Meds: Home Meds metFORMIN [Glucophage] 1,000 mg PO BIDMEALS 09/05/14 [History] Losartan [Cozaar] 25 mg PO DAILY 05/23/17 [History] Nicotine [Habitrol] 21 mg TRDERM DAILY patch 12/08/20 [Rx] Past Medical History - Past Health History Medical/Surgical History: Denies Medical/Surgical History HEENT History: Reports: None Cardiovascular History: Reports: Hypertension Respiratory History: Reports: None Gastrointestinal History: Reports: None Genitourinary History: Reports: Diabetic Nephropathy Musculoskeletal History: Reports: None Neurological History: Reports: Brain Injury, Concussion, Head Trauma Psychiatric History: Reports: Addiction, Depression, Other (See Below) Endocrine/Metabolic History: Reports: Diabetes, Type II Hematologic History: Reports: Blood Transfusion(s) Immunologic History: Reports: None Oncologic (Cancer) History: Reports: None Dermatologic History: Reports: Cellulitis - Infectious Disease History Infectious Disease History: Reports: Chicken Pox - Past Surgical History Head Surgeries/Procedures: Reports: None Social & Family History - Family History Family Medical History: No Pertinent Family History - Caffeine Use Caffeine Use: Reports: Soda Caffeine Use Comment: unable to obtain - Living Situation & Occupation Living situation: Reports: with Spouse Review of Systems - Review of Systems Review Of Systems: Comprehensive ROS is negative, except as noted in HPI. ED EXAM, GENERAL - Physical Exam Exam: See Below Exam Limited By: No Limitations General Appearance: Alert, Moderate Distress Eye Exam: Bilateral Eye: EOMI, Normal Inspection, PERRL Ears: Normal External Exam, Normal Canal, Hearing Grossly Normal, Normal TMs Nose: Normal Inspection, Normal Mucosa, No Blood Throat/Mouth: Normal Inspection, Normal Lips, Normal Teeth, Normal Gums, Normal Oropharynx, Normal Voice, No Airway Compromise Head: Atraumatic, Normocephalic Neck: Normal Inspection, Supple, Non-Tender, Full Range of Motion Respiratory/Chest: No Respiratory Distress, Lungs Clear, Normal Breath Sounds, No Accessory Muscle Use, Chest Non-Tender Cardiovascular: No JVD, No Murmur, No Rub, Extra Beats GI/Abdominal: Normal Bowel Sounds, Soft, No Organomegaly, No Distention, No Abnormal Bruit, No Mass, Pelvis Stable, Tender (RUQ) (Male) Exam: Deferred Rectal (Males) Exam: Deferred Back Exam: Normal Inspection, Full Range of Motion, NT Extremities: Leg Pain (bilateral feet), Redness (Right lower extremity), Other (The patient reports bilateral peripheral neuropathy) Neurological: Alert, Oriented, CN II-XII Intact, Normal Cognition Psychiatric: Depressed Mood, Flat Affect Skin Exam: Wound/Incision (Right great toe swelling with drainage. The patient has erythema of his right lower extremity including his foot. The patient also has pain to his right lower extremity. ) Lymphatic: No Adenopathy #1 Interpretation EKG Date: 03/01/21 Time: 04:37 Rhythm: Other (Sinus Tach) [place]: Normal P-Wave: Present QRS: Normal ST-T: Normal QT: Normal Comparison: Change From Previous EKG EKG Interpretation Comments: Frequent PVCs Course - Vital Signs Last Recorded V/S: Last Vital Signs Temp 99.6 F 03/01/21 03:54 Pulse 64 03/01/21 03:54 Resp 16 03/01/21 03:54 BP 129/89 03/01/21 04:30 Pulse Ox 97 03/01/21 03:54 - Orders/Labs/Meds Orders: Active Orders 24 hr Category Date Time Status Admission Diagnosis [ADT] Urgent ADT 03/01/21 06:14 Ordered Admission Status [Patient Status] [ADT] Urgent ADT 03/01/21 06:14 Ordered Foot Comp Min 3V Lt [CR] Urgent Exams 03/01/21 04:21 Taken Foot Comp Min 3V Rt [CR] Urgent Exams 03/01/21 04:21 Taken CULTURE BLOOD [BC] Stat Lab 03/01/21 04:08 Received CULTURE BLOOD [BC] Stat Lab 03/01/21 04:08 Received DRUG SCREEN URINE BIORAD [URCHEM] Stat Lab 03/01/21 03:49 Ordered UA RFX CALVIN AND CULT IF INDIC [URIN] Urgent Lab 03/01/21 03:49 Ordered Vancomycin 1,500 mg Med 03/01/21 05:30 Ordered Sodium Chloride 0.9% [Normal Saline] 500 ml IV ONETIME Medication Orders Vancomycin HCl 1,500 mg/ (Sodium Chloride) 500 mls @ 333.333 mls/hr IV ONETIME ONE Stop: 03/01/21 06:59 Last Admin: 03/01/21 05:49 Dose: 333.333 mls/hr Documented by: OTONIEL Labs: Laboratory Tests 03/01/21 03/01/21 03/01/21 Range/Units 04:08 04:08 04:08 WBC 6.7 (5.0-10.0) 10^3/uL RBC 4.61 (4.6-6.2) 10^6/uL Hgb 13.7 L (14.0-18.0) g/dL Hct 38.0 L (40.0-54.0) % MCV 82.4 D (80-100) fL MCH 29.7 (27.0-34.0) pg MCHC 36.1 H (33.0-35.0) g/dL Plt Count 158 D (150-450) 10^3/uL Neut % (Auto) 75.5 H (42.2-75.2) % Lymph % (Auto) 13.1 L (20.5-50.1) % Saline % (Auto) 10.5 H (2-8) % Eos % (Auto) 0.6 L (1.0-3.0) % Baso % (Auto) 0.3 (0.0-1.0) % PT 12.5 H (9.0-12.0) SEC INR 1.3 H (0.9-1.2) Sodium 131 L (136-145) mmol/L Potassium 3.0 L (3.5-5.1) mmol/L Chloride 92 L (98-107) mmol/L Carbon Dioxide 25 (21-32) mmol/L Anion Gap 17.0 H (7-13) mEq/L BUN 18 (7-18) mg/dL Creatinine 0.86 (0.70-1.30) mg/dL Est Cr Clr Drug Dosing 122.13 mL/min Estimated GFR (MDRD) > 60 BUN/Creatinine Ratio 20.9 (No establ ref range) Glucose 244 H (70-99) mg/dL Lactic Acid (0.4-2.0) mmol/L Calcium 7.7 L (8.5-10.1) mg/dL Magnesium 1.3 L (1.8-2.4) mg/dL Total Bilirubin 3.4 H (0.2-1.0) mg/dL AST 256 H (15-37) U/L ALT 168 H (16-63) U/L Alkaline Phosphatase 133 H (46-116) U/L Ammonia (11-32) umol/L Troponin I High Sens 10 (<=76) pg/mL Total Protein 7.9 (6.4-8.2) g/dL Albumin 3.1 L (3.4-5.0) g/dL Globulin 4.8 Albumin/Globulin Ratio 0.65 Amylase 17 L (25-115) U/L Salicylates (2.8-20(Therapeutic)) mg/dL Acetaminophen 0 L (10-30 (Therapeutic)) ug/mL Ethyl Alcohol < 3 (0) mg/dL Influenza Type A RNA (NEGATIVE) Influenza Type B RNA (NEGATIVE) SARS-CoV-2 RNA (YVROSE) (NEGATIVE) 03/01/21 03/01/21 03/01/21 Range/Units 04:08 04:08 04:08 WBC (5.0-10.0) 10^3/uL RBC (4.6-6.2) 10^6/uL Hgb (14.0-18.0) g/dL Hct (40.0-54.0) % MCV (80-100) fL MCH (27.0-34.0) pg MCHC (33.0-35.0) g/dL Plt Count (150-450) 10^3/uL Neut % (Auto) (42.2-75.2) % Lymph % (Auto) (20.5-50.1) % Saline % (Auto) (2-8) % Eos % (Auto) (1.0-3.0) % Baso % (Auto) (0.0-1.0) % PT (9.0-12.0) SEC INR (0.9-1.2) Sodium (136-145) mmol/L Potassium (3.5-5.1) mmol/L Chloride (98-107) mmol/L Carbon Dioxide (21-32) mmol/L Anion Gap (7-13) mEq/L BUN (7-18) mg/dL Creatinine (0.70-1.30) mg/dL Est Cr Clr Drug Dosing mL/min Estimated GFR (MDRD) BUN/Creatinine Ratio (No establ ref range) Glucose (70-99) mg/dL Lactic Acid 1.9 (0.4-2.0) mmol/L Calcium (8.5-10.1) mg/dL Magnesium (1.8-2.4) mg/dL Total Bilirubin (0.2-1.0) mg/dL AST (15-37) U/L ALT (16-63) U/L Alkaline Phosphatase (46-116) U/L Ammonia 53 H (11-32) umol/L Troponin I High Sens (<=76) pg/mL Total Protein (6.4-8.2) g/dL Albumin (3.4-5.0) g/dL Globulin Albumin/Globulin Ratio Amylase (25-115) U/L Salicylates < 2.8 L (2.8-20(Therapeutic)) mg/dL Acetaminophen (10-30 (Therapeutic)) ug/mL Ethyl Alcohol (0) mg/dL Influenza Type A RNA (NEGATIVE) Influenza Type B RNA (NEGATIVE) SARS-CoV-2 RNA (YVROSE) (NEGATIVE) 03/01/21 Range/Units 04:13 WBC (5.0-10.0) 10^3/uL RBC (4.6-6.2) 10^6/uL Hgb (14.0-18.0) g/dL Hct (40.0-54.0) % MCV (80-100) fL MCH (27.0-34.0) pg MCHC (33.0-35.0) g/dL Plt Count (150-450) 10^3/uL Neut % (Auto) (42.2-75.2) % Lymph % (Auto) (20.5-50.1) % Saline % (Auto) (2-8) % Eos % (Auto) (1.0-3.0) % Baso % (Auto) (0.0-1.0) % PT (9.0-12.0) SEC INR (0.9-1.2) Sodium (136-145) mmol/L Potassium (3.5-5.1) mmol/L Chloride (98-107) mmol/L Carbon Dioxide (21-32) mmol/L Anion Gap (7-13) mEq/L BUN (7-18) mg/dL Creatinine (0.70-1.30) mg/dL Est Cr Clr Drug Dosing mL/min Estimated GFR (MDRD) BUN/Creatinine Ratio (No establ ref range) Glucose (70-99) mg/dL Lactic Acid (0.4-2.0) mmol/L Calcium (8.5-10.1) mg/dL Magnesium (1.8-2.4) mg/dL Total Bilirubin (0.2-1.0) mg/dL AST (15-37) U/L ALT (16-63) U/L Alkaline Phosphatase (46-116) U/L Ammonia (11-32) umol/L Troponin I High Sens (<=76) pg/mL Total Protein (6.4-8.2) g/dL Albumin (3.4-5.0) g/dL Globulin Albumin/Globulin Ratio Amylase (25-115) U/L Salicylates (2.8-20(Therapeutic)) mg/dL Acetaminophen (10-30 (Therapeutic)) ug/mL Ethyl Alcohol (0) mg/dL Influenza Type A RNA Negative (NEGATIVE) Influenza Type B RNA Negative (NEGATIVE) SARS-CoV-2 RNA (YVROSE) Negative (NEGATIVE) Meds: Medications Generic Name Dose Route Start Last Admin Trade Name Freq PRN Reason Stop Dose Admin Vancomycin HCl 1,500 mg/ 500 mls @ 333.333 mls/hr 03/01/21 05:30 03/01/21 05:49 Sodium Chloride IV 03/01/21 06:59 333.333 mls/hr ONETIME ONE Administration Discontinued Medications Generic Name Dose Route Start Last Admin Trade Name Freq PRN Reason Stop Dose Admin Lactulose 20 gm 03/01/21 05:32 03/01/21 05:50 Lactulose Soln 10 Gm/15 Ml 30 Ml Ud Cup PO 03/01/21 05:33 20 gm ONETIME ONE Administration Departure - Departure Time of Disposition: 06:17 Disposition: Admitted As Inpatient 68 Condition: Poor Clinical Impression: Cellulitis of right lower extremity, Increased ammonia level - Discharge Information *PRESCRIPTION DRUG MONITORING PROGRAM REVIEWED*: Not Applicable *COPY OF PRESCRIPTION DRUG MONITORING REPORT IN PATIENT DIEGO: Not Applicable Care Plan Goals: Discussed the patient's history, examination, lab results, x-ray results and treatments with Dr. Chadwick. Dr. Chadwick accepted the patient for continued evaluation and further management as an inpatient at [facility]. Sepsis Event Note (ED) - Focused Exam Vital Signs: Vital Signs Temp Pulse Resp BP Pulse Ox 03/01/21 04:30 129/89 03/01/21 03:54 99.6 F 64 16 97 - My Orders Last 24 Hours: My Active Orders 03/01/21 03:49 DRUG SCREEN URINE BIORAD [URCHEM] Stat UA RFX CALVIN AND CULT IF INDIC [URIN] Urgent 03/01/21 04:08 CULTURE BLOOD [BC] Stat CULTURE BLOOD [BC] Stat 03/01/21 04:21 Foot Comp Min 3V Lt [CR] Urgent Foot Comp Min 3V Rt [CR] Urgent 03/01/21 05:30 Vancomycin 1,500 mg Sodium Chloride 0.9% [Normal Saline] 500 ml IV ONETIME 03/01/21 06:14 Admission Diagnosis [ADT] Urgent Admission Status [Patient Status] [ADT] Urgent - Assessment/Plan Last 24 Hours: My Active Orders 03/01/21 03:49 DRUG SCREEN URINE BIORAD [URCHEM] Stat UA RFX CALVIN AND CULT IF INDIC [URIN] Urgent 03/01/21 04:08 CULTURE BLOOD [BC] Stat CULTURE BLOOD [BC] Stat 03/01/21 04:21 Foot Comp Min 3V Lt [CR] Urgent Foot Comp Min 3V Rt [CR] Urgent 03/01/21 05:30 Vancomycin 1,500 mg Sodium Chloride 0.9% [Normal Saline] 500 ml IV ONETIME 03/01/21 06:14 Admission Diagnosis [ADT] Urgent Admission Status [Patient Status] [ADT] Urgent
[2021-03-01 04:53] LABS: CHLORIDE,CL 92 mmol/L (98-107); SODIUM,NA 131 mmol/L (136-145)
[2021-03-01 04:55] LABS: ACETAMINOPHEN 0 ug/mL (10-30 (Therapeutic))
[2021-03-01 05:32] LABS: CORONAVIRUS COVID-19 NAA NEGATIVE (NEGATIVE)
[2021-03-01] MEDS ORDERED: Lactulose Soln 10 GM/15 ML 30 ML UD Cup PO ONE (05:32)
--- NOTE | 2021-03-01 06:52 | PCM.HP ---
H&P History of Present Illness - General Date of Service: 03/01/21 Admit Problem/Dx: Admission Diagnosis/Problem Admission Diagnosis/Problem Cellulitis Source of Information: Patient - History of Present Illness Initial Comments - Free Text/Narative: h/o dm, meth use, alcohol use he is homeless not taking meds presented with moderate r. le swelling, severe pain, associated with redness worse with touching present for 2 weeks has h/o dm not checking bs, not taking meds has been using meth and alcohol daily Right Foot Pain Score (Numeric/FACES): 10 Right Upper Abdomen Pain Score (Numeric/FACES): 6 - Related Data Allergies/Adverse Reactions: Allergies Allergy/AdvReac Type Severity Reaction Status Date / Time ibuprofen AdvReac Mild Abdominal Verified 03/01/21 04:00 Pain Home Medications: Home Meds metFORMIN [Glucophage] 1,000 mg PO BIDMEALS 09/05/14 [History] Losartan [Cozaar] 25 mg PO DAILY 05/23/17 [History] Nicotine [Habitrol] 21 mg TRDERM DAILY patch 12/08/20 [Rx] Past Medical History - Past Health History Medical/Surgical History: Denies Medical/Surgical History HEENT History: Reports: None Cardiovascular History: Reports: Hypertension Respiratory History: Reports: None Gastrointestinal History: Reports: None Genitourinary History: Reports: Diabetic Nephropathy Musculoskeletal History: Reports: None Neurological History: Reports: Brain Injury, Concussion, Head Trauma Psychiatric History: Reports: Addiction, Depression, Other (See Below) Endocrine/Metabolic History: Reports: Diabetes, Type II Hematologic History: Reports: Blood Transfusion(s) Immunologic History: Reports: None Oncologic (Cancer) History: Reports: None Dermatologic History: Reports: Cellulitis - Infectious Disease History Infectious Disease History: Reports: Chicken Pox - Past Surgical History Head Surgeries/Procedures: Reports: None Social & Family History - Family History Family Medical History: No Pertinent Family History - Tobacco Use Tobacco Use Status *Q: Current Every Day Tobacco User Years of Tobacco use: 30 Packs/Tins Daily: 1 - Caffeine Use Caffeine Use: Reports: Soda Caffeine Use Comment: unable to obtain - Recreational Drug Use Recreational Drug Use: Yes Drug Use in Last 12 Months: Yes Recreational Drug Type: Reports: Marijuana/Hashish - Living Situation & Occupation Living situation: Reports: with Spouse H&P Review of Systems - Review of Systems: Review Of Systems: See Below General: Reports: Fever (subjective), Chills, Malaise Pulmonary: Denies: Shortness of Breath Cardiovascular: Reports: Edema (r. leg ). Denies: Chest Pain Gastrointestinal: Denies: Abdominal Pain Genitourinary: Denies: Dysuria Psychiatric: Reports: Anxiety. Denies: Confusion Exam - Exam Exam: See Below - Vital Signs Vital Signs: Last Vital Signs Temp 99.6 F 03/01/21 03:54 Pulse 64 03/01/21 03:54 Resp 16 03/01/21 03:54 BP 129/89 03/01/21 04:30 Pulse Ox 97 03/01/21 03:54 Weight: 240 lb 14.4 oz - Exam Quality Assessment: Other (restless) General: Alert, Oriented Neck: Supple Lungs: Clear to Auscultation, Normal Respiratory Effort Cardiovascular: Regular Rate, Regular Rhythm GI/Abdominal Exam: Normal Bowel Sounds, Soft, Non-Tender Extremities: Other (r. foot is swollen, erythematous, 1st toe is macerated, swollen, left foot s/p 1st toe distal amputation, dark eschar tip of 2nd toe) Psychiatric: Anxious, Other (restless, constantly moving) - Patient Data Lab Results Last 24 hrs: Laboratory Results - last 24 hr 03/01/21 03/01/21 03/01/21 Range/Units 04:08 04:08 04:08 WBC 6.7 (5.0-10.0) 10^3/uL RBC 4.61 (4.6-6.2) 10^6/uL Hgb 13.7 L (14.0-18.0) g/dL Hct 38.0 L (40.0-54.0) % MCV 82.4 D (80-100) fL MCH 29.7 (27.0-34.0) pg MCHC 36.1 H (33.0-35.0) g/dL Plt Count 158 D (150-450) 10^3/uL Neut % (Auto) 75.5 H (42.2-75.2) % Lymph % (Auto) 13.1 L (20.5-50.1) % [place] % (Auto) 10.5 H (2-8) % Eos % (Auto) 0.6 L (1.0-3.0) % Baso % (Auto) 0.3 (0.0-1.0) % PT 12.5 H (9.0-12.0) SEC INR 1.3 H (0.9-1.2) Sodium 131 L (136-145) mmol/L Potassium 3.0 L (3.5-5.1) mmol/L Chloride 92 L (98-107) mmol/L Carbon Dioxide 25 (21-32) mmol/L Anion Gap 17.0 H (7-13) mEq/L BUN 18 (7-18) mg/dL Creatinine 0.86 (0.70-1.30) mg/dL Est Cr Clr Drug Dosing 122.13 mL/min Estimated GFR (MDRD) > 60 BUN/Creatinine Ratio 20.9 (No establ ref range) Glucose 244 H (70-99) mg/dL Lactic Acid (0.4-2.0) mmol/L Calcium 7.7 L (8.5-10.1) mg/dL Magnesium 1.3 L (1.8-2.4) mg/dL Total Bilirubin 3.4 H (0.2-1.0) mg/dL AST 256 H (15-37) U/L ALT 168 H (16-63) U/L Alkaline Phosphatase 133 H (46-116) U/L Ammonia (11-32) umol/L Troponin I High Sens 10 (<=76) pg/mL Total Protein 7.9 (6.4-8.2) g/dL Albumin 3.1 L (3.4-5.0) g/dL Globulin 4.8 Albumin/Globulin Ratio 0.65 Amylase 17 L (25-115) U/L Salicylates (2.8-20(Therapeutic)) mg/dL Acetaminophen 0 L (10-30 (Therapeutic)) ug/mL Ethyl Alcohol < 3 (0) mg/dL Influenza Type A RNA (NEGATIVE) Influenza Type B RNA (NEGATIVE) SARS-CoV-2 RNA (YVROSE) (NEGATIVE) 03/01/21 03/01/21 03/01/21 Range/Units 04:08 04:08 04:08 WBC (5.0-10.0) 10^3/uL RBC (4.6-6.2) 10^6/uL Hgb (14.0-18.0) g/dL Hct (40.0-54.0) % MCV (80-100) fL MCH (27.0-34.0) pg MCHC (33.0-35.0) g/dL Plt Count (150-450) 10^3/uL Neut % (Auto) (42.2-75.2) % Lymph % (Auto) (20.5-50.1) % [place] % (Auto) (2-8) % Eos % (Auto) (1.0-3.0) % Baso % (Auto) (0.0-1.0) % PT (9.0-12.0) SEC INR (0.9-1.2) Sodium (136-145) mmol/L Potassium (3.5-5.1) mmol/L Chloride (98-107) mmol/L Carbon Dioxide (21-32) mmol/L Anion Gap (7-13) mEq/L BUN (7-18) mg/dL Creatinine (0.70-1.30) mg/dL Est Cr Clr Drug Dosing mL/min Estimated GFR (MDRD) BUN/Creatinine Ratio (No establ ref range) Glucose (70-99) mg/dL Lactic Acid 1.9 (0.4-2.0) mmol/L Calcium (8.5-10.1) mg/dL Magnesium (1.8-2.4) mg/dL Total Bilirubin (0.2-1.0) mg/dL AST (15-37) U/L ALT (16-63) U/L Alkaline Phosphatase (46-116) U/L Ammonia 53 H (11-32) umol/L Troponin I High Sens (<=76) pg/mL Total Protein (6.4-8.2) g/dL Albumin (3.4-5.0) g/dL Globulin Albumin/Globulin Ratio Amylase (25-115) U/L Salicylates < 2.8 L (2.8-20(Therapeutic)) mg/dL Acetaminophen (10-30 (Therapeutic)) ug/mL Ethyl Alcohol (0) mg/dL Influenza Type A RNA (NEGATIVE) Influenza Type B RNA (NEGATIVE) SARS-CoV-2 RNA (YVROSE) (NEGATIVE) 03/01/21 Range/Units 04:13 WBC (5.0-10.0) 10^3/uL RBC (4.6-6.2) 10^6/uL Hgb (14.0-18.0) g/dL Hct (40.0-54.0) % MCV (80-100) fL MCH (27.0-34.0) pg MCHC (33.0-35.0) g/dL Plt Count (150-450) 10^3/uL Neut % (Auto) (42.2-75.2) % Lymph % (Auto) (20.5-50.1) % [place] % (Auto) (2-8) % Eos % (Auto) (1.0-3.0) % Baso % (Auto) (0.0-1.0) % PT (9.0-12.0) SEC INR (0.9-1.2) Sodium (136-145) mmol/L Potassium (3.5-5.1) mmol/L Chloride (98-107) mmol/L Carbon Dioxide (21-32) mmol/L Anion Gap (7-13) mEq/L BUN (7-18) mg/dL Creatinine (0.70-1.30) mg/dL Est Cr Clr Drug Dosing mL/min Estimated GFR (MDRD) BUN/Creatinine Ratio (No establ ref range) Glucose (70-99) mg/dL Lactic Acid (0.4-2.0) mmol/L Calcium (8.5-10.1) mg/dL Magnesium (1.8-2.4) mg/dL Total Bilirubin (0.2-1.0) mg/dL AST (15-37) U/L ALT (16-63) U/L Alkaline Phosphatase (46-116) U/L Ammonia (11-32) umol/L Troponin I High Sens (<=76) pg/mL Total Protein (6.4-8.2) g/dL Albumin (3.4-5.0) g/dL Globulin Albumin/Globulin Ratio Amylase (25-115) U/L Salicylates (2.8-20(Therapeutic)) mg/dL Acetaminophen (10-30 (Therapeutic)) ug/mL Ethyl Alcohol (0) mg/dL Influenza Type A RNA Negative (NEGATIVE) Influenza Type B RNA Negative (NEGATIVE) SARS-CoV-2 RNA (YVROSE) Negative (NEGATIVE) Result Diagrams: 03/01/21 04:08 03/01/21 04:08 - Problem List (1) Cellulitis of right lower extremity SNOMED Code(s): 190395552 ICD Code: L03.115 - CELLULITIS OF RIGHT LOWER LIMB Status: Acute Current Visit: No (2) Increased ammonia level SNOMED Code(s): 978736570, 351385557, 743719991 ICD Code: R79.89 - OTHER SPECIFIED ABNORMAL FINDINGS OF BLOOD CHEMISTRY Status: Acute Current Visit: No (3) Methamphetamine abuse SNOMED Code(s): 398915187 ICD Code: F15.10 - OTHER STIMULANT ABUSE, UNCOMPLICATED Status: Acute Current Visit: No (4) Uncontrolled type 2 diabetes mellitus SNOMED Code(s): 561945809, 799902286 ICD Code: E11.65 - TYPE 2 DIABETES MELLITUS WITH HYPERGLYCEMIA Status: Acute Current Visit: No Qualifiers: Glycemic state: with hyperglycemia Qualified Code(s): E11.65 - Type 2 diabetes mellitus with hyperglycemia Problem List Initiated/Reviewed/Updated: Yes Orders Last 24hrs: Active Orders 24 hr Category Date Time Status Admission Diagnosis [ADT] Urgent ADT 03/01/21 06:14 Ordered Admission Status [Patient Status] [ADT] Urgent ADT 03/01/21 06:14 Active Foot Comp Min 3V Lt [CR] Urgent Exams 03/01/21 04:21 Taken Foot Comp Min 3V Rt [CR] Urgent Exams 03/01/21 04:21 Taken CULTURE BLOOD [BC] Stat Lab 03/01/21 04:08 Received CULTURE BLOOD [BC] Stat Lab 03/01/21 04:08 Received DRUG SCREEN URINE BIORAD [URCHEM] Stat Lab 03/01/21 03:49 Ordered UA RFX CALVIN AND CULT IF INDIC [URIN] Urgent Lab 03/01/21 03:49 Ordered Pharmacy to Dose - Vancomycin Med 03/01/21 06:45 Ordered 1 dose .XX ASDIRECTED Piperacillin/Tazobactam [Zosyn] 3.375 gm Med 03/01/21 06:45 Ordered Sodium Chloride 0.9% [Normal Saline AdvBag] 100 ml IV Q6H Vancomycin 1,500 mg Med 03/01/21 05:30 Active Sodium Chloride 0.9% [Normal Saline] 500 ml IV ONETIME Medication Orders Vancomycin HCl 1,500 mg/ (Sodium Chloride) 500 mls @ 333.333 mls/hr IV ONETIME ONE Stop: 03/01/21 06:59 Last Admin: 03/01/21 05:49 Dose: 333.333 mls/hr Documented by: OTONIEL Assessment/Plan Comment:: Cellulitis, likely osteomyelitis Will get blood culture Empirical tx with zosyn, vanc Obtain MRI r/o osteo Patient will likely need amputation of toe if osteo present DM, likely type I Uncontrolled Check BS Start levemir Use supplemental insulin and hypoglycemia protocol as needed h/o alcohol abuse likely liver cirrhosis high ammonia level use lactulose to prevent acute hepatic encephalopathy elevated LFTs likely alcoholic hepatits high risk for viral hepatitis send serology h/o meth use now appear in withdrawal will use Ativan as needed hypokalemia will replace and recheck in AM hyponatremia hydrate will recheck dvt prophylaxis sq heparin
[2021-03-01] MEDS ORDERED: Acetaminophen 325 MG Tab PO PRN (06:55)
[2021-03-01] MEDS ORDERED: Ketorolac 30 MG/ML SDV IM PRN (06:55)
[2021-03-01] MEDS ORDERED: 50% Dextrose in Water 50 ML Syringe IVPUSH PRN (06:57)
[2021-03-01] MEDS ORDERED: Glucagon,Human Recombinant 1 MG Vial IM PRN (06:57)
[2021-03-01] MEDS ORDERED: Potassium Chloride 10 MEQ Tab.ER PO ONE ×2 (06:58→11:30)
[2021-03-01] MEDS ORDERED: LORazepam 2 MG/ML SDV IVPUSH PRN (06:59)
[2021-03-01] MEDS ORDERED: Piperacillin/Tazobactam 3.375 GM in Sodium Chloride 0.9% 100 ML IV SCH ×2 (07:00→12:00)
--- NOTE | 2021-03-01 07:12 | CR ---
PROCEDURE INFORMATION: Exam: XR Right Foot Exam date and time: 03/01/2021 5:07 AM Age: 50 years old Clinical indication: Pain; Foot; Right; Additional info: Bilateral foot pain TECHNIQUE: Imaging protocol: XR Right foot. Views: 3 or more views. COMPARISON: CR Foot 2V Rt 12/05/2020 12:26 PM FINDINGS: Bones/joints: Redemonstration of intra-articular nonunion fracture of the medial aspect of the 1st proximal phalangeal head. Erosive changes with suggestion of a pathologic fracture involving 1st distal phalanx. Acute osteomyelitis is suspected. Soft tissues: Appearance of a skin ulcer involving distal great toe. Vasculature: Atherosclerotic disease. IMPRESSION: Erosive changes with suggestion of a pathologic fracture involving 1st distal phalanx. Appearance of a skin ulcer involving distal great toe. Acute osteomyelitis is suspected.
--- NOTE | 2021-03-01 07:15 | CR ---
PROCEDURE INFORMATION: Exam: XR Left Foot Exam date and time: 03/01/2021 5:12 AM Age: 50 years old Clinical indication: Pain; Foot; Left; Prior surgery; Surgery date: 1-6 months; Surgery type: Big toe amputation; Additional info: Bilateral foot pain TECHNIQUE: Imaging protocol: XR Left foot. Views: 3 or more views. COMPARISON: CR Foot 2V Lt 12/05/2020 12:25 PM FINDINGS: Bones/joints: Partial resection of the great toe through proximal phalanx. Osseous debris at the amputation site. Degenerative changes in the midfoot. Soft tissues: Normal. Vasculature: Atherosclerotic disease. IMPRESSION: Partial resection of the great toe through proximal phalanx. Osseous debris at the amputation site.
[2021-03-01] MEDS ORDERED: Nicotine 14 MG/24 Hr Patch TRDERM SCH (09:00)
[2021-03-01 10:21] LABS: METHAMPHETAMINES,URINE POSITIVE (NEGATIVE)
[2021-03-01 10:22] LABS: AMPHETAMINES,URINE POSITIVE (NEGATIVE); BARBITURATES,URINE NEGATIVE (NEGATIVE); BENZODIAZEPINE,URINE NEGATIVE (NEGATIVE); MDMA (ECSTASY), URINE POSITIVE (NEGATIVE); METHADONE,URINE NEGATIVE (NEGATIVE); OPIATES,URINE NEGATIVE (NEGATIVE); OXYCODONE,URINE NEGATIVE (NEGATIVE); PHENCYCLIDINE,URINE NEGATIVE (NEGATIVE); TCA,URINE NEGATIVE (NEGATIVE)
[2021-03-01] MEDS: NS + KCl 20mEq/L 1,000 ML IV SCH (11:29)
[2021-03-01] MEDS: Insulin Lispro 100 Units/ML 3 ML Vial SUBCUT SCH ×4 (11:41→21:29)
[2021-03-01] MEDS: Sodium Chloride 0.9% 10 ML Syringe FLUSH SCH ×2 (11:42→22:03)
[2021-03-01] MEDS: Morphine 2 MG/ML SYRINGE IVPUSH PRN (12:20)
[2021-03-01] MEDS: Insulin Glarg,Human.Rec.Analog 100 Unit/ML SUBCUT SCH (12:23)
[2021-03-01] MEDS: VANCOmycin 1.5 GM/300 ML 1.5 GM in Premix Bag 1 BAG IV SCH ×2 (15:32→22:04)
[2021-03-01] MEDS: Lactulose Soln 10 GM/15 ML 30 ML UD Cup PO SCH ×2 (15:38→21:26)
[2021-03-01] MEDS: Nicotine 21 MG/24 Hr Patch TRDERM SCH (15:39)
[2021-03-01] MEDS: Heparin Sodium 5,000 Units/ML Vial SUBCUT SCH ×2 (15:42→21:26)
[2021-03-01] MEDS: Cefepime 1 GM in Sodium Chloride 0.9% 50 ML IV SCH (21:26)
[2021-03-01] MEDS: Ketorolac 30 MG/ML SDV IVPUSH PRN (21:33)
[2021-03-02] MEDS: NS + KCl 20mEq/L 1,000 ML IV SCH (01:09)
[2021-03-02] MEDS: Heparin Sodium 5,000 Units/ML Vial SUBCUT SCH ×3 (05:31→21:24)
[2021-03-02] MEDS: Cefepime 1 GM in Sodium Chloride 0.9% 50 ML IV SCH ×3 (05:32→21:25)
[2021-03-02] MEDS: VANCOmycin 1.5 GM/300 ML 1.5 GM in Premix Bag 1 BAG IV SCH ×3 (05:56→21:53)
[2021-03-02 07:00] LABS: ANION GAP 12.3 mEq/L (7-13); CHLORIDE,CL 100 mmol/L (98-107); SODIUM,NA 137 mmol/L (136-145)
[2021-03-02] MEDS: Ketorolac 30 MG/ML SDV IVPUSH PRN ×2 (08:56→17:36)
[2021-03-02] MEDS: Nicotine 21 MG/24 Hr Patch TRDERM SCH (09:00)
[2021-03-02] MEDS: Ondansetron 4 MG Tab.DIS PO PRN (09:01)
[2021-03-02] MEDS: Lactulose Soln 10 GM/15 ML 30 ML UD Cup PO SCH ×3 (09:02→21:24)
[2021-03-02] MEDS: Sodium Chloride 0.9% 10 ML Syringe FLUSH SCH ×2 (09:04→21:25)
[2021-03-02] MEDS: Insulin Lispro 100 Units/ML 3 ML Vial SUBCUT SCH ×4 (09:07→21:24)
[2021-03-02] MEDS: Insulin Glarg,Human.Rec.Analog 100 Unit/ML SUBCUT SCH (09:08)
[2021-03-02] MEDS ORDERED: Potassium Chloride 10 MEQ Tab.ER PO ONE (11:32)
--- NOTE | 2021-03-02 11:39 | PCM.PN ---
- General Info Date of Service: 03/02/21 Subjective Update: r. foot is still painful, moderate pain, worse with touch, better with rest, present for days, associated with swelling and mild drainage from the wound Functional Status: Reports: Pain Controlled, Tolerating Diet - Review of Systems General: Denies: Fever Pulmonary: Denies: Shortness of Breath Cardiovascular: Reports: Edema (improved r. leg edema). Denies: Chest Pain Genitourinary: Denies: Dysuria Neurological: Denies: Confusion - Patient Data Vitals - Most Recent: Last Vital Signs Temp 98.2 F 03/02/21 08:11 Pulse 86 03/02/21 08:11 Resp 20 03/02/21 08:11 BP 121/73 03/02/21 08:11 Pulse Ox 100 03/02/21 08:11 Weight - Most Recent: 223 lb I&O - Last 24 Hours: Intake & Output 03/01/21 03/02/21 03/02/21 22:59 06:59 14:59 Intake Total 210 2024 500 Balance 210 2024 500 Lab Results Last 24 Hours: Laboratory Results - last 24 hr 03/01/21 03/01/21 03/01/21 Range/Units 11:46 16:31 20:09 WBC (5.0-10.0) 10^3/uL RBC (4.6-6.2) 10^6/uL Hgb (14.0-18.0) g/dL Hct (40.0-54.0) % MCV (80-100) fL MCH (27.0-34.0) pg MCHC (33.0-35.0) g/dL Plt Count (150-450) 10^3/uL Sodium (136-145) mmol/L Potassium (3.5-5.1) mmol/L Chloride (98-107) mmol/L Carbon Dioxide (21-32) mmol/L Anion Gap (7-13) mEq/L BUN (7-18) mg/dL Creatinine (0.70-1.30) mg/dL Est Cr Clr Drug Dosing mL/min Estimated GFR (MDRD) Glucose (70-99) mg/dL POC Glucose 286 H 208 H 192 H (70-99) mg/dL Calcium (8.5-10.1) mg/dL 03/02/21 03/02/21 03/02/21 Range/Units 05:35 05:35 07:55 WBC 3.9 L (5.0-10.0) 10^3/uL RBC 4.40 L (4.6-6.2) 10^6/uL Hgb 12.8 L (14.0-18.0) g/dL Hct 38.0 L (40.0-54.0) % MCV 86.4 D (80-100) fL MCH 29.1 (27.0-34.0) pg MCHC 33.7 (33.0-35.0) g/dL Plt Count 102 L (150-450) 10^3/uL Sodium 137 (136-145) mmol/L Potassium 3.3 L (3.5-5.1) mmol/L Chloride 100 (98-107) mmol/L Carbon Dioxide 28 (21-32) mmol/L Anion Gap 12.3 (7-13) mEq/L BUN 6 L (7-18) mg/dL Creatinine 0.72 (0.70-1.30) mg/dL Est Cr Clr Drug Dosing 145.88 mL/min Estimated GFR (MDRD) > 60 Glucose 239 H (70-99) mg/dL POC Glucose 193 H (70-99) mg/dL Calcium 7.7 L (8.5-10.1) mg/dL Samuel Results Last 24 Hours: Microbiology 03/01/21 09:05 Urine Culture - Preliminary Urine, Voided NO GROWTH AFTER 1 DAY 03/01/21 04:08 Aerobic Blood Culture - Preliminary Blood NO GROWTH AFTER 1 DAY Anaerobic Blood Culture - Preliminary NO GROWTH AFTER 1 DAY 03/01/21 04:08 Aerobic Blood Culture - Preliminary Blood NO GROWTH AFTER 1 DAY Anaerobic Blood Culture - Preliminary NO GROWTH AFTER 1 DAY Med Orders - Current: Current Medications Acetaminophen (Acetaminophen 325 Mg Tab) 650 mg PO Q4H PRN PRN Reason: Pain (Mild 1-3)/fever Dextrose/Water (50% Dextrose In Water 50 Ml Syringe) 25 ml IVPUSH ASDIRECTED PRN PRN Reason: Hypoglycemia BS<70 Dextrose/Water (50% Dextrose In Water 50 Ml Syringe) 50 ml IVPUSH Q15M PRN PRN Reason: Hypoglycemia Glucagon (Glucagon,Human Recombinant 1 Mg Vial) 1 mg IM Q15M PRN PRN Reason: Hypoglycemia Heparin Sodium (Porcine) (Heparin Sodium 5,000 Units/Ml Vial) 5,000 units SUBCUT Q8HR [facility] Last Admin: 03/02/21 05:31 Dose: 5,000 units Documented by: Vancomycin HCl 1.5 gm/ Premix 300 mls @ 200 mls/hr IV Q8H [facility] Last Admin: 03/02/21 05:56 Dose: 200 mls/hr Documented by: Cefepime HCl 1 gm/ Sodium (Chloride) 50 mls @ 100 mls/hr IV Q8HR [facility] Last Infusion: 03/02/21 07:30 Dose: Infused Documented by: Insulin Glargine (Insulin Glarg,Human.Rec.Analog 100 Unit/Ml) 10 unit SUBCUT DAILY [facility] Last Admin: 03/02/21 09:08 Dose: 10 units Documented by: Insulin Human Lispro (Insulin Lispro 100 Units/Ml 3 Ml Vial) 0 unit SUBCUT WITHMEALSANDBED [facility]; Protocol Last Admin: 03/02/21 09:07 Dose: 2 units Documented by: Ketorolac Tromethamine (Ketorolac 30 Mg/Ml Sdv) 30 mg IVPUSH Q6H PRN PRN Reason: Pain (moderate 4-6) Stop: 03/06/21 12:33 Last Admin: 03/02/21 08:56 Dose: 30 mg Documented by: Lactulose (Lactulose Soln 10 Gm/15 Ml 30 Ml Ud Cup) 20 gm PO TID [facility] Last Admin: 03/02/21 09:02 Dose: Not Given Documented by: Lorazepam (Lorazepam 2 Mg/Ml Sdv) 1 mg IVPUSH Q4H PRN PRN Reason: Anxiety Morphine Sulfate (Morphine 2 Mg/Ml Syringe) 1 mg IVPUSH Q2H PRN PRN Reason: Pain (severe 7-10) Last Admin: 03/01/21 12:20 Dose: 1 mg Documented by: Nicotine (Nicotine 21 Mg/24 Hr Patch) 21 mg TRDERM DAILY [facility] Last Admin: 03/02/21 09:00 Dose: 21 mg Documented by: Ondansetron HCl (Ondansetron 4 Mg Tab.Dis) 4 mg PO Q4H PRN PRN Reason: nausea, able to take PO Last Admin: 03/02/21 09:01 Dose: 4 mg Documented by: Potassium Chloride (Potassium Chloride 10 Meq Tab.Er) 40 meq PO ONETIME ONE Stop: 03/02/21 11:33 Sodium Chloride (Sodium Chloride 0.9% 10 Ml Syringe) 10 ml FLUSH 0900,2100 [facility] Last Admin: 03/02/21 09:04 Dose: 10 ml Documented by: Vancomycin HCl (Pharmacy To Dose - Vancomycin) 1 dose .XX ASDIRECTED [facility] Discontinued Medications Vancomycin HCl 1,500 mg/ (Sodium Chloride) 500 mls @ 333.333 mls/hr IV ONETIME ONE Stop: 03/01/21 06:59 Last Admin: 03/01/21 05:49 Dose: 333.333 mls/hr Documented by: Potassium Chloride/Sodium Chloride (Normal Saline With 20 Meq Kcl) 1,000 mls @ 100 mls/hr IV ASDIRECTED [facility] Last Admin: 03/02/21 01:09 Dose: 100 mls/hr Documented by: Piperacillin Sod/Tazobactam (Sod 3.375 gm/ Sodium Chloride) 100 mls @ 200 mls/hr IV Q6HR [facility] Last Admin: 03/01/21 13:24 Dose: 200 mls/hr Documented by: Lactulose (Lactulose Soln 10 Gm/15 Ml 30 Ml Ud Cup) 20 gm PO ONETIME ONE Stop: 03/01/21 05:33 Last Admin: 03/01/21 05:50 Dose: 20 gm Documented by: Nicotine (Nicotine 14 Mg/24 Hr Patch) 14 mg TRDERM DAILY [facility] Last Admin: 03/01/21 14:15 Dose: Not Given Documented by: Potassium Chloride (Potassium Chloride 10 Meq Tab.Er) 40 meq PO ONETIME ONE Stop: 03/01/21 11:31 Last Admin: 03/01/21 11:41 Dose: 40 meq Documented by: - Exam General: Alert, Oriented Neck: Supple Lungs: Clear to Auscultation, Normal Respiratory Effort Cardiovascular: Regular Rate, Regular Rhythm GI/Abdominal Exam: Normal Bowel Sounds, Soft, Non-Tender Extremities: Pedal Edema (trace r. LE edema with drainage from wound) - Patient Data Lab Results Last 24 hrs: Laboratory Results - last 24 hr 03/01/21 03/01/21 03/01/21 Range/Units 11:46 16:31 20:09 WBC (5.0-10.0) 10^3/uL RBC (4.6-6.2) 10^6/uL Hgb (14.0-18.0) g/dL Hct (40.0-54.0) % MCV (80-100) fL MCH (27.0-34.0) pg MCHC (33.0-35.0) g/dL Plt Count (150-450) 10^3/uL Sodium (136-145) mmol/L Potassium (3.5-5.1) mmol/L Chloride (98-107) mmol/L Carbon Dioxide (21-32) mmol/L Anion Gap (7-13) mEq/L BUN (7-18) mg/dL Creatinine (0.70-1.30) mg/dL Est Cr Clr Drug Dosing mL/min Estimated GFR (MDRD) Glucose (70-99) mg/dL POC Glucose 286 H 208 H 192 H (70-99) mg/dL Calcium (8.5-10.1) mg/dL 03/02/21 03/02/21 03/02/21 Range/Units 05:35 05:35 07:55 WBC 3.9 L (5.0-10.0) 10^3/uL RBC 4.40 L (4.6-6.2) 10^6/uL Hgb 12.8 L (14.0-18.0) g/dL Hct 38.0 L (40.0-54.0) % MCV 86.4 D (80-100) fL MCH 29.1 (27.0-34.0) pg MCHC 33.7 (33.0-35.0) g/dL Plt Count 102 L (150-450) 10^3/uL Sodium 137 (136-145) mmol/L Potassium 3.3 L (3.5-5.1) mmol/L Chloride 100 (98-107) mmol/L Carbon Dioxide 28 (21-32) mmol/L Anion Gap 12.3 (7-13) mEq/L BUN 6 L (7-18) mg/dL Creatinine 0.72 (0.70-1.30) mg/dL Est Cr Clr Drug Dosing 145.88 mL/min Estimated GFR (MDRD) > 60 Glucose 239 H (70-99) mg/dL POC Glucose 193 H (70-99) mg/dL Calcium 7.7 L (8.5-10.1) mg/dL Result Diagrams: 03/02/21 05:35 03/02/21 05:35 Samuel Results Last 24 hrs: Microbiology 03/01/21 09:05 Urine Culture - Preliminary Urine, Voided NO GROWTH AFTER 1 DAY 03/01/21 04:08 Aerobic Blood Culture - Preliminary Blood NO GROWTH AFTER 1 DAY Anaerobic Blood Culture - Preliminary NO GROWTH AFTER 1 DAY 03/01/21 04:08 Aerobic Blood Culture - Preliminary Blood NO GROWTH AFTER 1 DAY Anaerobic Blood Culture - Preliminary NO GROWTH AFTER 1 DAY Sepsis Event Note - Evaluation Sepsis Screening Result: No Definite Risk - Focused Exam Vital Signs: Vital Signs Temp Pulse Resp BP BP Pulse Ox 03/02/21 08:11 98.2 F 86 20 121/73 100 03/02/21 00:00 98.2 F 89 20 130/67 99 - Problem List & Annotations (1) Cellulitis of right lower extremity SNOMED Code(s): 259917932 Code(s): L03.115 - CELLULITIS OF RIGHT LOWER LIMB Status: Acute Current Visit: No (2) Increased ammonia level SNOMED Code(s): 421909178, 039589328, 942825774 Code(s): R79.89 - OTHER SPECIFIED ABNORMAL FINDINGS OF BLOOD CHEMISTRY Status: Acute Current Visit: No (3) Methamphetamine abuse SNOMED Code(s): 070016285 Code(s): F15.10 - OTHER STIMULANT ABUSE, UNCOMPLICATED Status: Acute Current Visit: No (4) Uncontrolled type 2 diabetes mellitus SNOMED Code(s): 081214550, 199885414 Code(s): E11.65 - TYPE 2 DIABETES MELLITUS WITH HYPERGLYCEMIA Status: Acute Current Visit: No Qualifiers: Glycemic state: with hyperglycemia Qualified Code(s): E11.65 - Type 2 diabe ayo mellitus with hyperglycemia - Problem List Review Problem List Initiated/Reviewed/Updated: Yes - My Orders Last 24 Hours: My Active Orders 03/01/21 12:30 Nicotine [Habitrol] 21 mg TRDERM DAILY 03/01/21 12:32 Ketorolac [Toradol] 30 mg IVPUSH Q6H PRN 03/01/21 14:00 Heparin Sodium 5,000 units SUBCUT Q8HR Lactulose [Cephulac] 20 gm PO TID VANCOmycin 1.5 GM/300 ML 1.5 gm Premix Bag 1 bag IV Q8H 03/01/21 22:00 Cefepime [Maxipime] 1 gm Sodium Chloride 0.9% [Normal Saline AdvBag] 50 ml IV Q8HR 03/02/21 11:32 Potassium Chloride [Klor-Con 10] 40 meq PO ONETIME ONE 03/02/21 11:33 CULTURE WOUND + SMEAR [RM] Routine 03/02/21 13:30 VANCOMYCIN TROUGH [CHEM] Timed 03/03/21 05:11 BASIC METABOLIC PANEL,BMP [CHEM] AM 03/04/21 05:11 BASIC METABOLIC PANEL,BMP [CHEM] AM 03/05/21 05:11 BASIC METABOLIC PANEL,BMP [CHEM] AM 03/06/21 05:11 BASIC METABOLIC PANEL,BMP [CHEM] AM - Plan Plan:: Cellulitis, xray of r. foot shows osteomyelitis blood culture: pending there is drainage noted: will get wound cx Empirical tx with zosyn, vanc Patient will likely need amputation of toe transfer to facility with podiatry/surgical capability when bed is available DM, likely type I Uncontrolled Check BS cont levemir Use supplemental insulin and hypoglycemia protocol as needed h/o alcohol abuse likely liver cirrhosis high ammonia level started lactulose to prevent acute hepatic encephalopathy elevated LFTs likely alcoholic hepatits high risk for viral hepatitis - pending serology h/o meth use in withdrawal on admission improved will use Ativan as needed hypokalemia will continue to replace and recheck in AM hyponatremia improved wth hydration stop IVF dvt prophylaxis sq heparin called [facility] - no bed available
[2021-03-03] MEDS: Ketorolac 30 MG/ML SDV IVPUSH PRN (03:47)
[2021-03-03] MEDS: Cefepime 1 GM in Sodium Chloride 0.9% 50 ML IV SCH ×3 (05:19→22:16)
[2021-03-03] MEDS: Morphine 2 MG/ML SYRINGE IVPUSH PRN ×3 (05:44→16:50)
[2021-03-03] MEDS: Heparin Sodium 5,000 Units/ML Vial SUBCUT SCH ×3 (05:44→22:19)
[2021-03-03] MEDS: VANCOmycin 1.5 GM/300 ML 1.5 GM in Premix Bag 1 BAG IV SCH ×2 (05:45→16:29)
[2021-03-03 06:44] LABS: ANION GAP 13.4 mEq/L (7-13); CHLORIDE,CL 105 mmol/L (98-107); SODIUM,NA 141 mmol/L (136-145)
[2021-03-03] MEDS: Insulin Glarg,Human.Rec.Analog 100 Unit/ML SUBCUT SCH (10:11)
[2021-03-03] MEDS: Insulin Lispro 100 Units/ML 3 ML Vial SUBCUT SCH ×4 (10:12→22:18)
[2021-03-03] MEDS: Nicotine 21 MG/24 Hr Patch TRDERM SCH (10:13)
[2021-03-03] MEDS: Lactulose Soln 10 GM/15 ML 30 ML UD Cup PO SCH ×3 (10:13→22:17)
[2021-03-03] MEDS: Sodium Chloride 0.9% 10 ML Syringe FLUSH SCH ×2 (10:24→22:17)
[2021-03-03] MEDS: Ondansetron 4 MG Tab.DIS PO PRN (10:27)
--- NOTE | 2021-03-03 10:27 | MR ---
PROCEDURE INFORMATION: Exam: MR Right Lower Extremity Other Than Joint Without Contrast; Foot Exam date and time: 03/03/2021 9:07 AM Age: 50 years old Clinical indication: Screening exam; Osteomyelitis? ; Additional info: Eval for extent of osteo TECHNIQUE: Imaging protocol: MR of the Right lower extremity without contrast. Exam focused on the foot. COMPARISON: CR Foot Comp Min 3V Rt 03/01/2021 5:07 AM FINDINGS: Images are degraded by motion. Bones and cartilage: Diffuse abnormal signal in the distal phalanx of the 1st toe with resorptive changes of the distal tuft. This is consistent with osteomyelitis of the distal tuft. 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 Joint spaces: Unremarkable. No joint effusion. LIGAMENTS: Lisfranc ligament: Unremarkable. No evidence of tear. TENDONS: Flexor tendons of foot: Unremarkable. No evidence of tear. Tibialis posterior tendon: Unremarkable as visualized. Peroneal tendons: Longitudinal split thickness tear of the peroneus brevis tendon at the lateral malleolus. Peroneal tenosynovitis. Extensor tendons of foot: Unremarkable. No evidence of tear. Tibialis anterior tendon: Unremarkable as visualized. Tarsal canal (Sinus tarsi): Unremarkable. Tarsal tunnel: Unremarkable. Soft tissues: Marked edema about the 1st toe. No fluid collection is identified.. Diffuse subcutaneous edema. Plantar fascia: Unremarkable as visualized. IMPRESSION: 1. Findings consistent with osteomyelitis of the distal aspect of the right 1st toe with associated marked cellulitis 2. Longitudinal split thickness tear peroneus brevis tendon with peroneal tenosynovitis 3. Diffuse subcutaneous edema the foot 4. Images are degraded by motion
[2021-03-03] MEDS ORDERED: Potassium Chloride 10 MEQ Tab.ER PO ONE (16:37)
--- NOTE | 2021-03-03 16:42 | PCM.PN ---
- General Info Date of Service: 03/03/21 Admission Dx/Problem (Free Text): Admission Diagnosis/Problem Admission Diagnosis/Problem Cellulitis Subjective Update: r. foot is still moderately painful, worse with touch, better with rest, present for days, associated with swelling and mild drainage from the wound no fever Functional Status: Reports: Pain Controlled, Tolerating Diet - Review of Systems General: Denies: Fever, Weakness Pulmonary: Denies: Shortness of Breath Cardiovascular: Denies: Chest Pain, Edema Genitourinary: Denies: Dysuria - Patient Data Vitals - Most Recent: Last Vital Signs Temp 98.1 F 03/03/21 12:00 Pulse 75 03/03/21 12:00 Resp 18 03/03/21 12:00 BP 104/47 L 03/03/21 12:00 Pulse Ox 97 03/03/21 12:00 Weight - Most Recent: 223 lb I&O - Last 24 Hours: Intake & Output 03/03/21 03/03/21 03/03/21 06:59 14:59 22:59 Intake Total 650 325 Output Total 400 Balance 650 -75 Lab Results Last 24 Hours: Laboratory Results - last 24 hr 03/02/21 03/02/21 03/03/21 Range/Units 16:36 20:29 05:05 Sodium 141 (136-145) mmol/L Potassium 3.4 L (3.5-5.1) mmol/L Chloride 105 (98-107) mmol/L Carbon Dioxide 26 (21-32) mmol/L Anion Gap 13.4 H (7-13) mEq/L BUN 7 (7-18) mg/dL Creatinine 0.61 L (0.70-1.30) mg/dL Est Cr Clr Drug Dosing 172.19 mL/min Estimated GFR (MDRD) > 60 Glucose 236 H (70-99) mg/dL POC Glucose 175 H 186 H (70-99) mg/dL Calcium 7.5 L (8.5-10.1) mg/dL 03/03/21 03/03/21 03/03/21 Range/Units 08:11 11:57 16:18 Sodium (136-145) mmol/L Potassium (3.5-5.1) mmol/L Chloride (98-107) mmol/L Carbon Dioxide (21-32) mmol/L Anion Gap (7-13) mEq/L BUN (7-18) mg/dL Creatinine (0.70-1.30) mg/dL Est Cr Clr Drug Dosing mL/min Estimated GFR (MDRD) Glucose (70-99) mg/dL POC Glucose 206 H 144 H 176 H (70-99) mg/dL Calcium (8.5-10.1) mg/dL Samuel Results Last 24 Hours: Microbiology 03/01/21 09:05 Urine Culture - Final Urine, Voided NO GROWTH AFTER 2 DAYS 03/01/21 04:08 Aerobic Blood Culture - Preliminary Blood NO GROWTH AFTER 2 DAYS Anaerobic Blood Culture - Preliminary NO GROWTH AFTER 2 DAYS 03/01/21 04:08 Aerobic Blood Culture - Preliminary Blood NO GROWTH AFTER 2 DAYS Anaerobic Blood Culture - Preliminary NO GROWTH AFTER 2 DAYS Med Orders - Current: Current Medications Acetaminophen (Acetaminophen 325 Mg Tab) 650 mg PO Q4H PRN PRN Reason: Pain (Mild 1-3)/fever Dextrose/Water (50% Dextrose In Water 50 Ml Syringe) 25 ml IVPUSH ASDIRECTED PRN PRN Reason: Hypoglycemia BS<70 Dextrose/Water (50% Dextrose In Water 50 Ml Syringe) 50 ml IVPUSH Q15M PRN PRN Reason: Hypoglycemia Glucagon (Glucagon,Human Recombinant 1 Mg Vial) 1 mg IM Q15M PRN PRN Reason: Hypoglycemia Heparin Sodium (Porcine) (Heparin Sodium 5,000 Units/Ml Vial) 5,000 units SUBCUT Q8HR [facility] Last Admin: 03/03/21 16:30 Dose: Not Given Documented by: Vancomycin HCl 1.5 gm/ Premix 300 mls @ 200 mls/hr IV Q8H [facility] Last Admin: 03/03/21 16:29 Dose: 200 mls/hr Documented by: Cefepime HCl 1 gm/ Sodium (Chloride) 50 mls @ 100 mls/hr IV Q8HR [facility] Last Admin: 03/03/21 05:19 Dose: 100 mls/hr Documented by: Insulin Glargine (Insulin Glarg,Human.Rec.Analog 100 Unit/Ml) 10 unit SUBCUT DAILY [facility] Last Admin: 03/03/21 10:11 Dose: 10 units Documented by: Insulin Human Lispro (Insulin Lispro 100 Units/Ml 3 Ml Vial) 0 unit SUBCUT WITHMEALSANDBED [facility]; Protocol Last Admin: 03/03/21 12:08 Dose: Not Given Documented by: Ketorolac Tromethamine (Ketorolac 30 Mg/Ml Sdv) 30 mg IVPUSH Q6H PRN PRN Reason: Pain (moderate 4-6) Stop: 03/06/21 12:33 Last Admin: 03/03/21 03:47 Dose: 30 mg Documented by: Lactulose (Lactulose Soln 10 Gm/15 Ml 30 Ml Ud Cup) 20 gm PO TID [facility] Last Admin: 03/03/21 16:30 Dose: Not Given Documented by: Lorazepam (Lorazepam 2 Mg/Ml Sdv) 1 mg IVPUSH Q4H PRN PRN Reason: Anxiety Morphine Sulfate (Morphine 2 Mg/Ml Syringe) 1 mg IVPUSH Q2H PRN PRN Reason: Pain (severe 7-10) Last Admin: 03/03/21 10:24 Dose: 1 mg Documented by: Nicotine (Nicotine 21 Mg/24 Hr Patch) 21 mg TRDERM DAILY [facility] Last Admin: 03/03/21 10:13 Dose: Not Given Documented by: Ondansetron HCl (Ondansetron 4 Mg Tab.Dis) 4 mg PO Q4H PRN PRN Reason: nausea, able to take PO Last Admin: 03/03/21 10:27 Dose: 4 mg Documented by: Sodium Chloride (Sodium Chloride 0.9% 10 Ml Syringe) 10 ml FLUSH 0900,2100 [facility] Last Admin: 03/03/21 10:24 Dose: 10 ml Documented by: Vancomycin HCl (Pharmacy To Dose - Vancomycin) 1 dose .XX ASDIRECTED [facility] Discontinued Medications Vancomycin HCl 1,500 mg/ (Sodium Chloride) 500 mls @ 333.333 mls/hr IV ONETIME ONE Stop: 03/01/21 06:59 Last Admin: 03/01/21 05:49 Dose: 333.333 mls/hr Documented by: Potassium Chloride/Sodium Chloride (Normal Saline With 20 Meq Kcl) 1,000 mls @ 100 mls/hr IV ASDIRECTED [facility] Last Infusion: 03/02/21 13:34 Dose: Infused Documented by: Piperacillin Sod/Tazobactam (Sod 3.375 gm/ Sodium Chloride) 100 mls @ 200 mls/hr IV Q6HR [facility] Last Admin: 03/01/21 13:24 Dose: 200 mls/hr Documented by: Lactulose (Lactulose Soln 10 Gm/15 Ml 30 Ml Ud Cup) 20 gm PO ONETIME ONE Stop: 03/01/21 05:33 Last Admin: 03/01/21 05:50 Dose: 20 gm Documented by: Nicotine (Nicotine 14 Mg/24 Hr Patch) 14 mg TRDERM DAILY [facility] Last Admin: 03/01/21 14:15 Dose: Not Given Documented by: Potassium Chloride (Potassium Chloride 10 Meq Tab.Er) 40 meq PO ONETIME ONE Stop: 03/01/21 11:31 Last Admin: 03/01/21 11:41 Dose: 40 meq Documented by: Potassium Chloride (Potassium Chloride 10 Meq Tab.Er) 40 meq PO ONETIME ONE Stop: 03/02/21 11:33 Last Admin: 03/02/21 12:16 Dose: 40 meq Documented by: Potassium Chloride (Potassium Chloride 10 Meq Tab.Er) 40 meq PO ONETIME ONE Stop: 03/03/21 16:38 - Exam General: Alert, Oriented Neck: Supple Lungs: Clear to Auscultation, Normal Respiratory Effort Cardiovascular: Regular Rate, Regular Rhythm GI/Abdominal Exam: Normal Bowel Sounds, Soft, Non-Tender Extremities: Pedal Edema (r. leg) Skin: Other (r. 1st toes swelling, mild drainage) - Patient Data Lab Results Last 24 hrs: Laboratory Results - last 24 hr 03/02/21 03/02/21 03/03/21 Range/Units 16:36 20:29 05:05 Sodium 141 (136-145) mmol/L Potassium 3.4 L (3.5-5.1) mmol/L Chloride 105 (98-107) mmol/L Carbon Dioxide 26 (21-32) mmol/L Anion Gap 13.4 H (7-13) mEq/L BUN 7 (7-18) mg/dL Creatinine 0.61 L (0.70-1.30) mg/dL Est Cr Clr Drug Dosing 172.19 mL/min Estimated GFR (MDRD) > 60 Glucose 236 H (70-99) mg/dL POC Glucose 175 H 186 H (70-99) mg/dL Calcium 7.5 L (8.5-10.1) mg/dL 03/03/21 03/03/21 03/03/21 Range/Units 08:11 11:57 16:18 Sodium (136-145) mmol/L Potassium (3.5-5.1) mmol/L Chloride (98-107) mmol/L Carbon Dioxide (21-32) mmol/L Anion Gap (7-13) mEq/L BUN (7-18) mg/dL Creatinine (0.70-1.30) mg/dL Est Cr Clr Drug Dosing mL/min Estimated GFR (MDRD) Glucose (70-99) mg/dL POC Glucose 206 H 144 H 176 H (70-99) mg/dL Calcium (8.5-10.1) mg/dL Result Diagrams: 03/02/21 05:35 03/03/21 05:05 Samuel Results Last 24 hrs: Microbiology 03/01/21 09:05 Urine Culture - Final Urine, Voided NO GROWTH AFTER 2 DAYS 03/01/21 04:08 Aerobic Blood Culture - Preliminary Blood NO GROWTH AFTER 2 DAYS Anaerobic Blood Culture - Preliminary NO GROWTH AFTER 2 DAYS 03/01/21 04:08 Aerobic Blood Culture - Preliminary Blood NO GROWTH AFTER 2 DAYS Anaerobic Blood Culture - Preliminary NO GROWTH AFTER 2 DAYS Sepsis Event Note - Evaluation Sepsis Screening Result: No Definite Risk - Focused Exam Vital Signs: Vital Signs Temp Pulse Resp BP Pulse Ox 03/03/21 12:00 98.1 F 75 18 104/47 L 97 03/03/21 08:00 97.3 F 70 18 131/91 H 98 - Problem List & Annotations (1) Cellulitis of right lower extremity SNOMED Code(s): 014355706 Code(s): L03.115 - CELLULITIS OF RIGHT LOWER LIMB Status: Acute Current Visit: No (2) Increased ammonia level SNOMED Code(s): 258293109, 158701332, 608001540 Code(s): R79.89 - OTHER SPECIFIED ABNORMAL FINDINGS OF BLOOD CHEMISTRY Status: Acute Current Visit: No (3) Methamphetamine abuse SNOMED Code(s): 400134365 Code(s): F15.10 - OTHER STIMULANT ABUSE, UNCOMPLICATED Status: Acute Current Visit: No (4) Uncontrolled type 2 diabetes mellitus SNOMED Code(s): 882183374, 902821640 Code(s): E11.65 - TYPE 2 DIABETES MELLITUS WITH HYPERGLYCEMIA Status: Acute Current Visit: No Qualifiers: Glycemic state: with hyperglycemia Qualified Code(s): E11.65 - Type 2 d iabetes mellitus with hyperglycemia - Problem List Review Problem List Initiated/Reviewed/Updated: Yes - My Orders Last 24 Hours: My Active Orders 03/03/21 21:30 VANCOMYCIN TROUGH [CHEM] Timed 03/04/21 05:11 BASIC METABOLIC PANEL,BMP [CHEM] AM CBC WITH AUTO DIFF [HEME] AM 03/05/21 05:11 BASIC METABOLIC PANEL,BMP [CHEM] AM CBC WITH AUTO DIFF [HEME] AM 03/06/21 05:11 BASIC METABOLIC PANEL,BMP [CHEM] AM CBC WITH AUTO DIFF [HEME] AM 03/07/21 05:11 CBC WITH AUTO DIFF [HEME] AM - Plan Plan:: Cellulitis, xray of r. foot shows osteomyelitis blood culture: pending there is drainage noted: will get wound cx Empirical tx with zosyn, vanc Patient will likely need amputation of toe transfer to facility with podiatry/surgical capability when bed is available DM, likely type I Uncontrolled Check BS cont levemir Use supplemental insulin and hypoglycemia protocol as needed h/o alcohol abuse likely liver cirrhosis high ammonia level started lactulose to prevent acute hepatic encephalopathy elevated LFTs likely alcoholic hepatits high risk for viral hepatitis - pending serology h/o meth use in withdrawal on admission improved will use Ativan as needed hypokalemia will continue to replace with PO kcl today and recheck in AM hyponatremia improved wth hydration stopped IVF dvt prophylaxis sq heparin called [facility] Roth[facility] [place] - no bed available
[2021-03-03] MEDS: Vancomycin 2 GM in Sodium Chloride 0.9% 500 ML IV SCH (23:33)
[2021-03-04] MEDS: Morphine 2 MG/ML SYRINGE IVPUSH PRN ×2 (04:48→13:45)
[2021-03-04] MEDS: Cefepime 1 GM in Sodium Chloride 0.9% 50 ML IV SCH ×3 (05:00→21:17)
[2021-03-04] MEDS: Heparin Sodium 5,000 Units/ML Vial SUBCUT SCH ×3 (05:46→21:16)
[2021-03-04] MEDS: Vancomycin 2 GM in Sodium Chloride 0.9% 500 ML IV SCH ×3 (05:48→21:54)
[2021-03-04 06:36] LABS: ANION GAP 13.6 mEq/L (7-13); CHLORIDE,CL 102 mmol/L (98-107); SODIUM,NA 138 mmol/L (136-145)
[2021-03-04] MEDS: VANCOmycin 1.5 GM/300 ML 1.5 GM in Premix Bag 1 BAG IV SCH (07:50)
[2021-03-04] MEDS: Insulin Lispro 100 Units/ML 3 ML Vial SUBCUT SCH ×4 (08:24→21:17)
[2021-03-04] MEDS: Insulin Glarg,Human.Rec.Analog 100 Unit/ML SUBCUT SCH (08:25)
[2021-03-04] MEDS: Lactulose Soln 10 GM/15 ML 30 ML UD Cup PO SCH ×3 (08:26→21:08)
[2021-03-04] MEDS: Nicotine 21 MG/24 Hr Patch TRDERM SCH (08:26)
[2021-03-04] MEDS: Sodium Chloride 0.9% 10 ML Syringe FLUSH SCH ×2 (08:26→21:17)
--- NOTE | 2021-03-04 17:14 | PCM.PN ---
- General Info Date of Service: 03/04/21 Admission Dx/Problem (Free Text): Admission Diagnosis/Problem Admission Diagnosis/Problem Cellulitis Subjective Update: r. foot is still moderately painful, worse with touch, better with rest, present for days, associated with swelling and mild drainage from the wound unchanged since yesterday no fever, no cp, no sob Functional Status: Reports: Pain Controlled, Tolerating Diet, Ambulating - Review of Systems General: Denies: Fever, Weakness Pulmonary: Denies: Shortness of Breath Cardiovascular: Denies: Chest Pain, Edema Neurological: Denies: Confusion - Patient Data Vitals - Most Recent: Last Vital Signs Temp 97.7 F 03/04/21 16:00 Pulse 71 03/04/21 16:00 Resp 16 03/04/21 16:00 BP 128/75 03/04/21 16:00 Pulse Ox 98 03/04/21 16:00 Weight - Most Recent: 223 lb I&O - Last 24 Hours: Intake & Output 03/04/21 03/04/21 03/04/21 06:59 14:59 22:59 Intake Total 210 1050 Output Total 700 Balance -490 1050 Lab Results Last 24 Hours: Laboratory Results - last 24 hr 03/01/21 03/03/21 03/03/21 Range/Units 04:30 21:30 21:34 WBC (5.0-10.0) 10^3/uL RBC (4.6-6.2) 10^6/uL Hgb (14.0-18.0) g/dL Hct (40.0-54.0) % MCV (80-100) fL MCH (27.0-34.0) pg MCHC (33.0-35.0) g/dL Plt Count (150-450) 10^3/uL Neut % (Auto) (42.2-75.2) % Lymph % (Auto) (20.5-50.1) % Lyman % (Auto) (2-8) % Eos % (Auto) (1.0-3.0) % Baso % (Auto) (0.0-1.0) % Sodium (136-145) mmol/L Potassium (3.5-5.1) mmol/L Chloride (98-107) mmol/L Carbon Dioxide (21-32) mmol/L Anion Gap (7-13) mEq/L BUN (7-18) mg/dL Creatinine (0.70-1.30) mg/dL Est Cr Clr Drug Dosing mL/min Estimated GFR (MDRD) Glucose (70-99) mg/dL POC Glucose 172 H (70-99) mg/dL Calcium (8.5-10.1) mg/dL Vancomycin Trough 13.9 (10.0-20.0) ug/mL Hepatitis A IgM Ab Negative (Negative) Hep Bs Antigen Negative (Negative) Hep B Core IgM Ab Negative (Negative) Hepatitis C Antibody >11.0 H (0.0-0.9) s/co ratio 03/04/21 03/04/21 03/04/21 Range/Units 05:40 05:40 07:26 WBC 5.0 (5.0-10.0) 10^3/uL RBC 4.32 L (4.6-6.2) 10^6/uL Hgb 12.7 L (14.0-18.0) g/dL Hct 37.4 L (40.0-54.0) % MCV 86.6 (80-100) fL MCH 29.4 (27.0-34.0) pg MCHC 34.0 (33.0-35.0) g/dL Plt Count 129 L (150-450) 10^3/uL Neut % (Auto) 42.1 L (42.2-75.2) % Lymph % (Auto) 47.1 (20.5-50.1) % Lyman % (Auto) 8.4 H (2-8) % Eos % (Auto) 2.0 (1.0-3.0) % Baso % (Auto) 0.4 (0.0-1.0) % Sodium 138 (136-145) mmol/L Potassium 3.6 (3.5-5.1) mmol/L Chloride 102 (98-107) mmol/L Carbon Dioxide 26 (21-32) mmol/L Anion Gap 13.6 H (7-13) mEq/L BUN 6 L (7-18) mg/dL Creatinine 0.62 L (0.70-1.30) mg/dL Est Cr Clr Drug Dosing 169.41 mL/min Estimated GFR (MDRD) > 60 Glucose 215 H (70-99) mg/dL POC Glucose 185 H (70-99) mg/dL Calcium 7.6 L (8.5-10.1) mg/dL Vancomycin Trough (10.0-20.0) ug/mL Hepatitis A IgM Ab (Negative) Hep Bs Antigen (Negative) Hep B Core IgM Ab (Negative) Hepatitis C Antibody (0.0-0.9) s/co ratio 03/04/21 Range/Units 11:25 WBC (5.0-10.0) 10^3/uL RBC (4.6-6.2) 10^6/uL Hgb (14.0-18.0) g/dL Hct (40.0-54.0) % MCV (80-100) fL MCH (27.0-34.0) pg MCHC (33.0-35.0) g/dL Plt Count (150-450) 10^3/uL Neut % (Auto) (42.2-75.2) % Lymph % (Auto) (20.5-50.1) % Lyman % (Auto) (2-8) % Eos % (Auto) (1.0-3.0) % Baso % (Auto) (0.0-1.0) % Sodium (136-145) mmol/L Potassium (3.5-5.1) mmol/L Chloride (98-107) mmol/L Carbon Dioxide (21-32) mmol/L Anion Gap (7-13) mEq/L BUN (7-18) mg/dL Creatinine (0.70-1.30) mg/dL Est Cr Clr Drug Dosing mL/min Estimated GFR (MDRD) Glucose (70-99) mg/dL POC Glucose 199 H (70-99) mg/dL Calcium (8.5-10.1) mg/dL Vancomycin Trough (10.0-20.0) ug/mL Hepatitis A IgM Ab (Negative) Hep Bs Antigen (Negative) Hep B Core IgM Ab (Negative) Hepatitis C Antibody (0.0-0.9) s/co ratio Samuel Results Last 24 Hours: Microbiology 03/01/21 04:08 Aerobic Blood Culture - Preliminary Blood NO GROWTH AFTER 3 DAYS Anaerobic Blood Culture - Preliminary NO GROWTH AFTER 3 DAYS 03/01/21 04:08 Aerobic Blood Culture - Preliminary Blood NO GROWTH AFTER 3 DAYS Anaerobic Blood Culture - Preliminary NO GROWTH AFTER 3 DAYS 03/03/21 17:30 Gram Stain - Final Foot, Right Med Orders - Current: Current Medications Acetaminophen (Acetaminophen 325 Mg Tab) 650 mg PO Q4H PRN PRN Reason: Pain (Mild 1-3)/fever Dextrose/Water (50% Dextrose In Water 50 Ml Syringe) 25 ml IVPUSH ASDIRECTED PRN PRN Reason: Hypoglycemia BS<70 Dextrose/Water (50% Dextrose In Water 50 Ml Syringe) 50 ml IVPUSH Q15M PRN PRN Reason: Hypoglycemia Glucagon (Glucagon,Human Recombinant 1 Mg Vial) 1 mg IM Q15M PRN PRN Reason: Hypoglycemia Heparin Sodium (Porcine) (Heparin Sodium 5,000 Units/Ml Vial) 5,000 units SUBCUT Q8HR [facility] Last Admin: 03/04/21 13:49 Dose: Not Given Documented by: Cefepime HCl 1 gm/ Sodium (Chloride) 50 mls @ 100 mls/hr IV Q8HR [facility] Last Admin: 03/04/21 13:08 Dose: 100 mls/hr Documented by: Vancomycin HCl 2 gm/ Sodium (Chloride) 500 mls @ 250 mls/hr IV Q8H [facility] Last Admin: 03/04/21 13:48 Dose: 250 mls/hr Documented by: Insulin Glargine (Insulin Glarg,Human.Rec.Analog 100 Unit/Ml) 10 unit SUBCUT DAILY [facility] Last Admin: 03/04/21 08:25 Dose: 10 units Documented by: Insulin Human Lispro (Insulin Lispro 100 Units/Ml 3 Ml Vial) 0 unit SUBCUT WITHMEALSANDBED [facility]; Protocol Last Admin: 03/04/21 13:09 Dose: 2 units Documented by: Ketorolac Tromethamine (Ketorolac 30 Mg/Ml Sdv) 30 mg IVPUSH Q6H PRN PRN Reason: Pain (moderate 4-6) Stop: 03/06/21 12:33 Last Admin: 03/03/21 03:47 Dose: 30 mg Documented by: Lactulose (Lactulose Soln 10 Gm/15 Ml 30 Ml Ud Cup) 20 gm PO TID [facility] Last Admin: 03/04/21 13:49 Dose: Not Given Documented by: Lorazepam (Lorazepam 2 Mg/Ml Sdv) 1 mg IVPUSH Q4H PRN PRN Reason: Anxiety Morphine Sulfate (Morphine 2 Mg/Ml Syringe) 1 mg IVPUSH Q2H PRN PRN Reason: Pain (severe 7-10) Last Admin: 03/04/21 13:45 Dose: 1 mg Documented by: Nicotine (Nicotine 21 Mg/24 Hr Patch) 21 mg TRDERM DAILY [facility] Last Admin: 03/04/21 08:26 Dose: Not Given Documented by: Ondansetron HCl (Ondansetron 4 Mg Tab.Dis) 4 mg PO Q4H PRN PRN Reason: nausea, able to take PO Last Admin: 03/03/21 10:27 Dose: 4 mg Documented by: Sodium Chloride (Sodium Chloride 0.9% 10 Ml Syringe) 10 ml FLUSH 0900,2100 [facility] Last Admin: 03/04/21 08:26 Dose: 10 ml Documented by: Vancomycin HCl (Pharmacy To Dose - Vancomycin) 1 dose .XX ASDIRECTED [facility] Discontinued Medications Vancomycin HCl 1,500 mg/ (Sodium Chloride) 500 mls @ 333.333 mls/hr IV ONETIME ONE Stop: 03/01/21 06:59 Last Admin: 03/01/21 05:49 Dose: 333.333 mls/hr Documented by: Potassium Chloride/Sodium Chloride (Normal Saline With 20 Meq Kcl) 1,000 mls @ 100 mls/hr IV ASDIRECTED [facility] Last Infusion: 03/02/21 13:34 Dose: Infused Documented by: Vancomycin HCl 1.5 gm/ Premix 300 mls @ 200 mls/hr IV Q8H [facility] Last Admin: 03/04/21 07:50 Dose: Not Given Documented by: Piperacillin Sod/Tazobactam (Sod 3.375 gm/ Sodium Chloride) 100 mls @ 200 mls/hr IV Q6HR [facility] Last Admin: 03/01/21 13:24 Dose: 200 mls/hr Documented by: Lactulose (Lactulose Soln 10 Gm/15 Ml 30 Ml Ud Cup) 20 gm PO ONETIME ONE Stop: 03/01/21 05:33 Last Admin: 03/01/21 05:50 Dose: 20 gm Documented by: Nicotine (Nicotine 14 Mg/24 Hr Patch) 14 mg TRDERM DAILY [facility] Last Admin: 03/01/21 14:15 Dose: Not Given Documented by: Potassium Chloride (Potassium Chloride 10 Meq Tab.Er) 40 meq PO ONETIME ONE Stop: 03/01/21 11:31 Last Admin: 03/01/21 11:41 Dose: 40 meq Documented by: Potassium Chloride (Potassium Chloride 10 Meq Tab.Er) 40 meq PO ONETIME ONE Stop: 03/02/21 11:33 Last Admin: 03/02/21 12:16 Dose: 40 meq Documented by: Potassium Chloride (Potassium Chloride 10 Meq Tab.Er) 40 meq PO ONETIME ONE Stop: 03/03/21 16:38 Last Admin: 03/03/21 16:52 Dose: 40 meq Documented by: - Exam Quality Assessment: No: Supplemental Oxygen General: Alert, Oriented Lungs: Clear to Auscultation, Normal Respiratory Effort Cardiovascular: Regular Rate, Regular Rhythm GI/Abdominal Exam: Normal Bowel Sounds, Soft, Non-Tender Extremities: Other (r. foot 1st toe swelling, mild drainage) - Patient Data Lab Results Last 24 hrs: Laboratory Results - last 24 hr 03/01/21 03/03/21 03/03/21 Range/Units 04:30 21:30 21:34 WBC (5.0-10.0) 10^3/uL RBC (4.6-6.2) 10^6/uL Hgb (14.0-18.0) g/dL Hct (40.0-54.0) % MCV (80-100) fL MCH (27.0-34.0) pg MCHC (33.0-35.0) g/dL Plt Count (150-450) 10^3/uL Neut % (Auto) (42.2-75.2) % Lymph % (Auto) (20.5-50.1) % Lyman % (Auto) (2-8) % Eos % (Auto) (1.0-3.0) % Baso % (Auto) (0.0-1.0) % Sodium (136-145) mmol/L Potassium (3.5-5.1) mmol/L Chloride (98-107) mmol/L Carbon Dioxide (21-32) mmol/L Anion Gap (7-13) mEq/L BUN (7-18) mg/dL Creatinine (0.70-1.30) mg/dL Est Cr Clr Drug Dosing mL/min Estimated GFR (MDRD) Glucose (70-99) mg/dL POC Glucose 172 H (70-99) mg/dL Calcium (8.5-10.1) mg/dL Vancomycin Trough 13.9 (10.0-20.0) ug/mL Hepatitis A IgM Ab Negative (Negative) Hep Bs Antigen Negative (Negative) Hep B Core IgM Ab Negative (Negative) Hepatitis C Antibody >11.0 H (0.0-0.9) s/co ratio 03/04/21 03/04/21 03/04/21 Range/Units 05:40 05:40 07:26 WBC 5.0 (5.0-10.0) 10^3/uL RBC 4.32 L (4.6-6.2) 10^6/uL Hgb 12.7 L (14.0-18.0) g/dL Hct 37.4 L (40.0-54.0) % MCV 86.6 (80-100) fL MCH 29.4 (27.0-34.0) pg MCHC 34.0 (33.0-35.0) g/dL Plt Count 129 L (150-450) 10^3/uL Neut % (Auto) 42.1 L (42.2-75.2) % Lymph % (Auto) 47.1 (20.5-50.1) % Lyman % (Auto) 8.4 H (2-8) % Eos % (Auto) 2.0 (1.0-3.0) % Baso % (Auto) 0.4 (0.0-1.0) % Sodium 138 (136-145) mmol/L Potassium 3.6 (3.5-5.1) mmol/L Chloride 102 (98-107) mmol/L Carbon Dioxide 26 (21-32) mmol/L Anion Gap 13.6 H (7-13) mEq/L BUN 6 L (7-18) mg/dL Creatinine 0.62 L (0.70-1.30) mg/dL Est Cr Clr Drug Dosing 169.41 mL/min Estimated GFR (MDRD) > 60 Glucose 215 H (70-99) mg/dL POC Glucose 185 H (70-99) mg/dL Calcium 7.6 L (8.5-10.1) mg/dL Vancomycin Trough (10.0-20.0) ug/mL Hepatitis A IgM Ab (Negative) Hep Bs Antigen (Negative) Hep B Core IgM Ab (Negative) Hepatitis C Antibody (0.0-0.9) s/co ratio 03/04/21 Range/Units 11:25 WBC (5.0-10.0) 10^3/uL RBC (4.6-6.2) 10^6/uL Hgb (14.0-18.0) g/dL Hct (40.0-54.0) % MCV (80-100) fL MCH (27.0-34.0) pg MCHC (33.0-35.0) g/dL Plt Count (150-450) 10^3/uL Neut % (Auto) (42.2-75.2) % Lymph % (Auto) (20.5-50.1) % Lyman % (Auto) (2-8) % Eos % (Auto) (1.0-3.0) % Baso % (Auto) (0.0-1.0) % Sodium (136-145) mmol/L Potassium (3.5-5.1) mmol/L Chloride (98-107) mmol/L Carbon Dioxide (21-32) mmol/L Anion Gap (7-13) mEq/L BUN (7-18) mg/dL Creatinine (0.70-1.30) mg/dL Est Cr Clr Drug Dosing mL/min Estimated GFR (MDRD) Glucose (70-99) mg/dL POC Glucose 199 H (70-99) mg/dL Calcium (8.5-10.1) mg/dL Vancomycin Trough (10.0-20.0) ug/mL Hepatitis A IgM Ab (Negative) Hep Bs Antigen (Negative) Hep B Core IgM Ab (Negative) Hepatitis C Antibody (0.0-0.9) s/co ratio Result Diagrams: 03/04/21 05:40 03/04/21 05:40 Samuel Results Last 24 hrs: Microbiology 03/01/21 04:08 Aerobic Blood Culture - Preliminary Blood NO GROWTH AFTER 3 DAYS Anaerobic Blood Culture - Preliminary NO GROWTH AFTER 3 DAYS 03/01/21 04:08 Aerobic Blood Culture - Preliminary Blood NO GROWTH AFTER 3 DAYS Anaerobic Blood Culture - Preliminary NO GROWTH AFTER 3 DAYS 03/03/21 17:30 Gram Stain - Final Foot, Right Sepsis Event Note - Evaluation Sepsis Screening Result: No Definite Risk - Focused Exam Vital Signs: Vital Signs Temp Pulse Resp BP Pulse Ox 03/04/21 16:00 97.7 F 71 16 128/75 98 03/04/21 12:00 97.7 F 76 18 119/71 100 03/04/21 07:44 98.3 F 72 18 119/69 96 - Problem List & Annotations (1) Cellulitis of right lower extremity SNOMED Code(s): 094289419 Code(s): L03.115 - CELLULITIS OF RIGHT LOWER LIMB Status: Acute Current Visit: No (2) Increased ammonia level SNOMED Code(s): 833303734, 351409148, 074972671 Code(s): R79.89 - OTHER SPECIFIED ABNORMAL FINDINGS OF BLOOD CHEMISTRY Status: Acute Current Visit: No (3) Methamphetamine abuse SNOMED Code(s): 568873412 Code(s): F15.10 - OTHER STIMULANT ABUSE, UNCOMPLICATED Status: Acute Current Visit: No (4) Uncontrolled type 2 diabetes mellitus SNOMED Code(s): 989891566, 501305284 Code(s): E11.65 - TYPE 2 DIABETES MELLITUS WITH HYPERGLYCEMIA Status: Acute Current Visit: No Qualifiers: Glycemic state: with hyperglycemia Qualified Code(s): E11.65 - Type 2 diabetes mellitus with hyperglycemia - Problem List Review Problem List Initiated/Reviewed/Updated: Yes - My Orders Last 24 Hours: My Active Orders 03/03/21 22:00 Vancomycin 2 gm Sodium Chloride 0.9% [Normal Saline] 500 ml IV Q8H 03/05/21 05:11 BASIC METABOLIC PANEL,BMP [CHEM] AM CBC WITH AUTO DIFF [HEME] AM 03/05/21 13:00 VANCOMYCIN TROUGH [CHEM] Timed 03/06/21 05:11 BASIC METABOLIC PANEL,BMP [CHEM] AM CBC WITH AUTO DIFF [HEME] AM 03/07/21 05:11 CBC WITH AUTO DIFF [HEME] AM - Plan Plan:: Cellulitis, xray of r. foot shows osteomyelitis blood culture: pending there is drainage noted: will get wound cx Empirical tx with zosyn, vanc Patient will likely need amputation of toe transfer to facility with podiatry/surgical capability when bed is available DM, likely type I Uncontrolled Check BS cont levemir Use supplemental insulin and hypoglycemia protocol as needed h/o alcohol abuse likely liver cirrhosis high ammonia level started lactulose to prevent acute hepatic encephalopathy - stable elevated LFTs Hepatitis C serology positive will need outpt f/up h/o meth use in withdrawal on admission resolved hypokalemia will continue to replace with PO kcl today and recheck in AM hyponatremia improved wth hydration stopped IVF dvt prophylaxis sq heparin called [facility] -no podiatry/foot surgery until 03/13/21, called [facility] [place] - no bed available
[2021-03-05] MEDS: Vancomycin 2 GM in Sodium Chloride 0.9% 500 ML IV SCH ×2 (06:17→14:32)
[2021-03-05] MEDS: Cefepime 1 GM in Sodium Chloride 0.9% 50 ML IV SCH ×2 (06:17→13:51)
[2021-03-05] MEDS: Morphine 2 MG/ML SYRINGE IVPUSH PRN (06:29)
[2021-03-05] MEDS: Heparin Sodium 5,000 Units/ML Vial SUBCUT SCH ×2 (06:44→13:53)
[2021-03-05 07:13] LABS: ANION GAP 11.5 mEq/L (7-13); CHLORIDE,CL 103 mmol/L (98-107); SODIUM,NA 139 mmol/L (136-145)
[2021-03-05] MEDS: Insulin Lispro 100 Units/ML 3 ML Vial SUBCUT SCH ×2 (07:56→12:47)
[2021-03-05] MEDS: Nicotine 21 MG/24 Hr Patch TRDERM SCH (08:38)
[2021-03-05] MEDS: Lactulose Soln 10 GM/15 ML 30 ML UD Cup PO SCH ×2 (08:38→13:53)
[2021-03-05] MEDS: Insulin Glarg,Human.Rec.Analog 100 Unit/ML SUBCUT SCH (08:44)
[2021-03-05 11:55] VITALS: BP 138/77; PULSE 68
[2021-03-05] MEDS: Sodium Chloride 0.9% 10 ML Syringe FLUSH SCH (13:51)
--- NOTE | 2021-03-05 14:38 | PCM.PN ---
- General Info Date of Service: 03/05/21 Admission Dx/Problem (Free Text): Admission Diagnosis/Problem Admission Diagnosis/Problem Cellulitis, osteomyelitis r. 1st toe Subjective Update: r. foot is still moderately painful, worse with touch, better with rest, symptoms have been present for days, associated with swelling and mild drainage from the wound unchanged in the past few days no fever, no cp, no sob Functional Status: Reports: Tolerating Diet, Ambulating - Review of Systems General: Denies: Fever, Weakness Pulmonary: Denies: Shortness of Breath Cardiovascular: Denies: Chest Pain, Edema Genitourinary: Denies: Dysuria - Patient Data Vitals - Most Recent: Last Vital Signs Temp 98.0 F 03/05/21 11:55 Pulse 68 03/05/21 11:55 Resp 20 03/05/21 11:55 BP 138/77 03/05/21 11:55 Pulse Ox 97 03/05/21 11:55 Weight - Most Recent: 223 lb I&O - Last 24 Hours: Intake & Output 03/04/21 03/05/21 03/05/21 22:59 06:59 14:59 Intake Total 1090 555 450 Output Total 700 Balance 1090 -145 450 Lab Results Last 24 Hours: Laboratory Results - last 24 hr 03/04/21 03/04/21 03/05/21 Range/Units 17:01 21:06 05:13 WBC (5.0-10.0) 10^3/uL RBC (4.6-6.2) 10^6/uL Hgb (14.0-18.0) g/dL Hct (40.0-54.0) % MCV (80-100) fL MCH (27.0-34.0) pg MCHC (33.0-35.0) g/dL Plt Count (150-450) 10^3/uL Neut % (Auto) (42.2-75.2) % Lymph % (Auto) (20.5-50.1) % [place] % (Auto) (2-8) % Eos % (Auto) (1.0-3.0) % Baso % (Auto) (0.0-1.0) % Sodium (136-145) mmol/L Potassium (3.5-5.1) mmol/L Chloride (98-107) mmol/L Carbon Dioxide (21-32) mmol/L Anion Gap (7-13) mEq/L BUN (7-18) mg/dL Creatinine (0.70-1.30) mg/dL Est Cr Clr Drug Dosing mL/min Estimated GFR (MDRD) Glucose (70-99) mg/dL POC Glucose 145 H 193 H 219 H (70-99) mg/dL Calcium (8.5-10.1) mg/dL Vancomycin Trough (10.0-20.0) ug/mL 03/05/21 03/05/21 03/05/21 Range/Units 05:45 05:45 07:33 WBC 5.6 (5.0-10.0) 10^3/uL RBC 4.45 L (4.6-6.2) 10^6/uL Hgb 13.1 L (14.0-18.0) g/dL Hct 39.2 L (40.0-54.0) % MCV 88.1 (80-100) fL MCH 29.4 (27.0-34.0) pg MCHC 33.4 (33.0-35.0) g/dL Plt Count 144 L (150-450) 10^3/uL Neut % (Auto) 42.5 (42.2-75.2) % Lymph % (Auto) 48.1 (20.5-50.1) % [place] % (Auto) 7.8 (2-8) % Eos % (Auto) 1.4 (1.0-3.0) % Baso % (Auto) 0.2 (0.0-1.0) % Sodium 139 (136-145) mmol/L Potassium 3.5 (3.5-5.1) mmol/L Chloride 103 (98-107) mmol/L Carbon Dioxide 28 (21-32) mmol/L Anion Gap 11.5 (7-13) mEq/L BUN 6 L (7-18) mg/dL Creatinine 0.57 L (0.70-1.30) mg/dL Est Cr Clr Drug Dosing 184.27 mL/min Estimated GFR (MDRD) > 60 Glucose 194 H (70-99) mg/dL POC Glucose 142 H (70-99) mg/dL Calcium 8.0 L (8.5-10.1) mg/dL Vancomycin Trough (10.0-20.0) ug/mL 03/05/21 03/05/21 Range/Units 11:35 13:15 WBC (5.0-10.0) 10^3/uL RBC (4.6-6.2) 10^6/uL Hgb (14.0-18.0) g/dL Hct (40.0-54.0) % MCV (80-100) fL MCH (27.0-34.0) pg MCHC (33.0-35.0) g/dL Plt Count (150-450) 10^3/uL Neut % (Auto) (42.2-75.2) % Lymph % (Auto) (20.5-50.1) % [place] % (Auto) (2-8) % Eos % (Auto) (1.0-3.0) % Baso % (Auto) (0.0-1.0) % Sodium (136-145) mmol/L Potassium (3.5-5.1) mmol/L Chloride (98-107) mmol/L Carbon Dioxide (21-32) mmol/L Anion Gap (7-13) mEq/L BUN (7-18) mg/dL Creatinine (0.70-1.30) mg/dL Est Cr Clr Drug Dosing mL/min Estimated GFR (MDRD) Glucose (70-99) mg/dL POC Glucose 176 H (70-99) mg/dL Calcium (8.5-10.1) mg/dL Vancomycin Trough 16.2 (10.0-20.0) ug/mL Samuel Results Last 24 Hours: Microbiology 03/01/21 04:08 Aerobic Blood Culture - Preliminary Blood NO GROWTH AFTER 4 DAYS Anaerobic Blood Culture - Preliminary NO GROWTH AFTER 4 DAYS 03/01/21 04:08 Aerobic Blood Culture - Preliminary Blood NO GROWTH AFTER 4 DAYS Anaerobic Blood Culture - Preliminary NO GROWTH AFTER 4 DAYS Med Orders - Current: Current Medications Acetaminophen (Acetaminophen 325 Mg Tab) 650 mg PO Q4H PRN PRN Reason: Pain (Mild 1-3)/fever Dextrose/Water (50% Dextrose In Water 50 Ml Syringe) 25 ml IVPUSH ASDIRECTED PRN PRN Reason: Hypoglycemia BS<70 Dextrose/Water (50% Dextrose In Water 50 Ml Syringe) 50 ml IVPUSH Q15M PRN PRN Reason: Hypoglycemia Glucagon (Glucagon,Human Recombinant 1 Mg Vial) 1 mg IM Q15M PRN PRN Reason: Hypoglycemia Heparin Sodium (Porcine) (Heparin Sodium 5,000 Units/Ml Vial) 5,000 units SUBCUT Q8HR [facility] Last Admin: 03/05/21 13:53 Dose: Not Given Documented by: Cefepime HCl 1 gm/ Sodium (Chloride) 50 mls @ 100 mls/hr IV Q8HR [facility] Last Admin: 03/05/21 13:51 Dose: 100 mls/hr Documented by: Vancomycin HCl 2 gm/ Sodium (Chloride) 500 mls @ 250 mls/hr IV Q8H [facility] Last Admin: 03/05/21 14:32 Dose: 250 mls/hr Documented by: Insulin Glargine (Insulin Glarg,Human.Rec.Analog 100 Unit/Ml) 10 unit SUBCUT DAILY [facility] Last Admin: 03/05/21 08:44 Dose: Not Given Documented by: Insulin Human Lispro (Insulin Lispro 100 Units/Ml 3 Ml Vial) 0 unit SUBCUT WITHMEALSANDBED [facility]; Protocol Last Admin: 03/05/21 12:47 Dose: Not Given Documented by: Ketorolac Tromethamine (Ketorolac 30 Mg/Ml Sdv) 30 mg IVPUSH Q6H PRN PRN Reason: Pain (moderate 4-6) Stop: 03/06/21 12:33 Last Admin: 03/03/21 03:47 Dose: 30 mg Documented by: Lactulose (Lactulose Soln 10 Gm/15 Ml 30 Ml Ud Cup) 20 gm PO TID [facility] Last Admin: 03/05/21 13:53 Dose: Not Given Documented by: Lorazepam (Lorazepam 2 Mg/Ml Sdv) 1 mg IVPUSH Q4H PRN PRN Reason: Anxiety Morphine Sulfate (Morphine 2 Mg/Ml Syringe) 1 mg IVPUSH Q2H PRN PRN Reason: Pain (severe 7-10) Last Admin: 03/05/21 06:29 Dose: 1 mg Documented by: Nicotine (Nicotine 21 Mg/24 Hr Patch) 21 mg TRDERM DAILY [facility] Last Admin: 03/05/21 08:38 Dose: Not Given Documented by: Ondansetron HCl (Ondansetron 4 Mg Tab.Dis) 4 mg PO Q4H PRN PRN Reason: nausea, able to take PO Last Admin: 03/03/21 10:27 Dose: 4 mg Documented by: Sodium Chloride (Sodium Chloride 0.9% 10 Ml Syringe) 10 ml FLUSH 0900,2100 [facility] Last Admin: 03/05/21 13:51 Dose: 10 ml Documented by: Vancomycin HCl (Pharmacy To Dose - Vancomycin) 1 dose .XX ASDIRECTED [facility] Discontinued Medications Vancomycin HCl 1,500 mg/ (Sodium Chloride) 500 mls @ 333.333 mls/hr IV ONETIME ONE Stop: 03/01/21 06:59 Last Admin: 03/01/21 05:49 Dose: 333.333 mls/hr Documented by: Potassium Chloride/Sodium Chloride (Normal Saline With 20 Meq Kcl) 1,000 mls @ 100 mls/hr IV ASDIRECTED [facility] Last Infusion: 03/02/21 13:34 Dose: Infused Documented by: Vancomycin HCl 1.5 gm/ Premix 300 mls @ 200 mls/hr IV Q8H [facility] Last Admin: 03/04/21 07:50 Dose: Not Given Documented by: Piperacillin Sod/Tazobactam (Sod 3.375 gm/ Sodium Chloride) 100 mls @ 200 mls/hr IV Q6HR [facility] Last Admin: 03/01/21 13:24 Dose: 200 mls/hr Documented by: Lactulose (Lactulose Soln 10 Gm/15 Ml 30 Ml Ud Cup) 20 gm PO ONETIME ONE Stop: 03/01/21 05:33 Last Admin: 03/01/21 05:50 Dose: 20 gm Documented by: Nicotine (Nicotine 14 Mg/24 Hr Patch) 14 mg TRDERM DAILY [facility] Last Admin: 03/01/21 14:15 Dose: Not Given Documented by: Potassium Chloride (Potassium Chloride 10 Meq Tab.Er) 40 meq PO ONETIME ONE Stop: 03/01/21 11:31 Last Admin: 03/01/21 11:41 Dose: 40 meq Documented by: Potassium Chloride (Potassium Chloride 10 Meq Tab.Er) 40 meq PO ONETIME ONE Stop: 03/02/21 11:33 Last Admin: 03/02/21 12:16 Dose: 40 meq Documented by: Potassium Chloride (Potassium Chloride 10 Meq Tab.Er) 40 meq PO ONETIME ONE Stop: 03/03/21 16:38 Last Admin: 03/03/21 16:52 Dose: 40 meq Documented by: - Exam Quality Assessment: No: Supplemental Oxygen General: Alert, Oriented Neck: Supple Lungs: Clear to Auscultation, Normal Respiratory Effort Cardiovascular: Regular Rate, Regular Rhythm GI/Abdominal Exam: Normal Bowel Sounds, Soft, Non-Tender Extremities: Other (right 1st toe edema, redness improved) - Patient Data Lab Results Last 24 hrs: Laboratory Results - last 24 hr 03/04/21 03/04/21 03/05/21 Range/Units 17:01 21:06 05:13 WBC (5.0-10.0) 10^3/uL RBC (4.6-6.2) 10^6/uL Hgb (14.0-18.0) g/dL Hct (40.0-54.0) % MCV (80-100) fL MCH (27.0-34.0) pg MCHC (33.0-35.0) g/dL Plt Count (150-450) 10^3/uL Neut % (Auto) (42.2-75.2) % Lymph % (Auto) (20.5-50.1) % [place] % (Auto) (2-8) % Eos % (Auto) (1.0-3.0) % Baso % (Auto) (0.0-1.0) % Sodium (136-145) mmol/L Potassium (3.5-5.1) mmol/L Chloride (98-107) mmol/L Carbon Dioxide (21-32) mmol/L Anion Gap (7-13) mEq/L BUN (7-18) mg/dL Creatinine (0.70-1.30) mg/dL Est Cr Clr Drug Dosing mL/min Estimated GFR (MDRD) Glucose (70-99) mg/dL POC Glucose 145 H 193 H 219 H (70-99) mg/dL Calcium (8.5-10.1) mg/dL Vancomycin Trough (10.0-20.0) ug/mL 03/05/21 03/05/21 03/05/21 Range/Units 05:45 05:45 07:33 WBC 5.6 (5.0-10.0) 10^3/uL RBC 4.45 L (4.6-6.2) 10^6/uL Hgb 13.1 L (14.0-18.0) g/dL Hct 39.2 L (40.0-54.0) % MCV 88.1 (80-100) fL MCH 29.4 (27.0-34.0) pg MCHC 33.4 (33.0-35.0) g/dL Plt Count 144 L (150-450) 10^3/uL Neut % (Auto) 42.5 (42.2-75.2) % Lymph % (Auto) 48.1 (20.5-50.1) % [place] % (Auto) 7.8 (2-8) % Eos % (Auto) 1.4 (1.0-3.0) % Baso % (Auto) 0.2 (0.0-1.0) % Sodium 139 (136-145) mmol/L Potassium 3.5 (3.5-5.1) mmol/L Chloride 103 (98-107) mmol/L Carbon Dioxide 28 (21-32) mmol/L Anion Gap 11.5 (7-13) mEq/L BUN 6 L (7-18) mg/dL Creatinine 0.57 L (0.70-1.30) mg/dL Est Cr Clr Drug Dosing 184.27 mL/min Estimated GFR (MDRD) > 60 Glucose 194 H (70-99) mg/dL POC Glucose 142 H (70-99) mg/dL Calcium 8.0 L (8.5-10.1) mg/dL Vancomycin Trough (10.0-20.0) ug/mL 03/05/21 03/05/21 Range/Units 11:35 13:15 WBC (5.0-10.0) 10^3/uL RBC (4.6-6.2) 10^6/uL Hgb (14.0-18.0) g/dL Hct (40.0-54.0) % MCV (80-100) fL MCH (27.0-34.0) pg MCHC (33.0-35.0) g/dL Plt Count (150-450) 10^3/uL Neut % (Auto) (42.2-75.2) % Lymph % (Auto) (20.5-50.1) % [place] % (Auto) (2-8) % Eos % (Auto) (1.0-3.0) % Baso % (Auto) (0.0-1.0) % Sodium (136-145) mmol/L Potassium (3.5-5.1) mmol/L Chloride (98-107) mmol/L Carbon Dioxide (21-32) mmol/L Anion Gap (7-13) mEq/L BUN (7-18) mg/dL Creatinine (0.70-1.30) mg/dL Est Cr Clr Drug Dosing mL/min Estimated GFR (MDRD) Glucose (70-99) mg/dL POC Glucose 176 H (70-99) mg/dL Calcium (8.5-10.1) mg/dL Vancomycin Trough 16.2 (10.0-20.0) ug/mL Result Diagrams: 03/05/21 05:45 03/05/21 05:45 Samuel Results Last 24 hrs: Microbiology 03/01/21 04:08 Aerobic Blood Culture - Preliminary Blood NO GROWTH AFTER 4 DAYS Anaerobic Blood Culture - Preliminary NO GROWTH AFTER 4 DAYS 03/01/21 04:08 Aerobic Blood Culture - Preliminary Blood NO GROWTH AFTER 4 DAYS Anaerobic Blood Culture - Preliminary NO GROWTH AFTER 4 DAYS Sepsis Event Note - Evaluation Sepsis Screening Result: No Definite Risk - Focused Exam Vital Signs: Vital Signs Temp Pulse Resp BP Pulse Ox 03/05/21 11:55 98.0 F 68 20 138/77 97 03/05/21 07:43 97.9 F 65 18 129/76 98 03/05/21 04:00 97.9 F 59 L 20 128/72 98 - Problem List & Annotations (1) Cellulitis of right lower extremity SNOMED Code(s): 563174634 Code(s): L03.115 - CELLULITIS OF RIGHT LOWER LIMB Status: Acute Current Visit: No (2) Increased ammonia level SNOMED Code(s): 625397303, 803513099, 726021967 Code(s): R79.89 - OTHER SPECIFIED ABNORMAL FINDINGS OF BLOOD CHEMISTRY Status: Acute Current Visit: No (3) Methamphetamine abuse SNOMED Code(s): 110194560 Code(s): F15.10 - OTHER STIMULANT ABUSE, UNCOMPLICATED Status: Acute Current Visit: No (4) Uncontrolled type 2 diabetes mellitus SNOMED Code(s): 428859859, 009831721 Code(s): E11.65 - TYPE 2 DIABETES MELLITUS WITH HYPERGLYCEMIA Status: Acute Current Visit: No Qualifiers: Glycemic state: with hyperglycemia Qualified Code(s): E11.65 - Type 2 diabetes mellitus with hyperglycemia - Problem List Review Problem List Initiated/Reviewed/Updated: Yes - My Orders Last 24 Hours: My Active Orders 03/06/21 05:15 BASIC METABOLIC PANEL,BMP [CHEM] AM 03/07/21 13:30 VANCOMYCIN TROUGH [CHEM] Timed - Plan Plan:: Cellulitis, xray of r. foot shows osteomyelitis blood culture: pending - neg for 4 days there is drainage noted: wound cx: pending - gram stain: Gram pos cocci Empirical tx with zosyn, vanc Patient will likely need amputation of toe transfer to facility with podiatry/surgical capability when bed is available DM, likely type I Uncontrolled follow BS cont levemir Use supplemental insulin and hypoglycemia protocol as needed h/o alcohol abuse likely liver cirrhosis high ammonia level started lactulose to prevent acute hepatic encephalopathy - stable elevated LFTs Hepatitis C serology positive will need outpt f/up h/o meth use in withdrawal on admission resolved hypokalemia will continue to replace with PO kcl today and recheck in AM hyponatremia improved wth hydration stopped IVF dvt prophylaxis sq heparin called [facility] -no podiatry/foot surgery until 03/13/21, called [facility] - bed will be likely available tomorrow
--- NOTE | 2021-03-05 15:40 | PCM.DCSUM1 ---
Discharge Summary - Hospital Course Free Text/Narrative:: called to room that he wants to leave discussed options of - continued IV Abx treatment with transfer when available - continued out pt IV Abx tx and follow up as out pt with surgery - PO abx treatment and f/up with surgery as out pt pt wanted to leave and take the abx he already has he will follow up with [facility] and out pt surgery leaving ama dx dg: r. foot 1st toe cellulitis with osteomyelitis - Discharge Data Discharge Date: 03/05/21 Discharge Disposition: Against Medical Advice 07 Condition: Good - Referral to Home Health Primary Care Physician: PCP None - Discharge Diagnosis/Problem(s) (1) Cellulitis of right lower extremity SNOMED Code(s): 632900206 ICD Code: L03.115 - CELLULITIS OF RIGHT LOWER LIMB Status: Acute Current Visit: No (2) Increased ammonia level SNOMED Code(s): 672224091, 569008652, 681811876 ICD Code: R79.89 - OTHER SPECIFIED ABNORMAL FINDINGS OF BLOOD CHEMISTRY Status: Acute Current Visit: No (3) Methamphetamine abuse SNOMED Code(s): 377609612 ICD Code: F15.10 - OTHER STIMULANT ABUSE, UNCOMPLICATED Status: Acute Current Visit: No (4) Uncontrolled type 2 diabetes mellitus SNOMED Code(s): 615980445, 210571302 ICD Code: E11.65 - TYPE 2 DIABETES MELLITUS WITH HYPERGLYCEMIA Status: Acute Current Visit: No Qualifiers: Glycemic state: with hyperglycemia Qualified Code(s): E11.65 - Type 2 diabetes mellitus with hyperglycemia - Patient Instructions Diet: Heart Healthy Diet Activity: As Tolerated - Discharge Plan *PRESCRIPTION DRUG MONITORING PROGRAM REVIEWED*: Not Applicable *COPY OF PRESCRIPTION DRUG MONITORING REPORT IN PATIENT [place]: Not Applicable Home Medications: Home Meds metFORMIN [Glucophage] 1,000 mg PO BIDMEALS 09/05/14 [History] Losartan [Cozaar] 25 mg PO DAILY 05/23/17 [History] Nicotine [Habitrol] 21 mg TRDERM DAILY patch 12/08/20 [Rx] Oxygen Therapy Mode: Room Air Referrals: PCP,None [Primary Care Provider] - - Discharge Summary/Plan Comment DC Time >30 min.: No Total # of Minutes for Discharge Time: 15 min discussion and note - Patient Data Vitals - Most Recent: Last Vital Signs Temp 98.0 F 03/05/21 11:55 Pulse 68 03/05/21 11:55 Resp 20 03/05/21 11:55 BP 138/77 03/05/21 11:55 Pulse Ox 97 03/05/21 11:55 Weight - Most Recent: 223 lb I&O - Last 24 hours: Intake & Output 03/05/21 03/05/21 03/05/21 06:59 14:59 22:59 Intake Total 555 450 Output Total 700 Balance -145 450 Lab Results - Last 24 hrs: Laboratory Results - last 24 hr 03/04/21 03/04/21 03/05/21 Range/Units 17:01 21:06 05:13 WBC (5.0-10.0) 10^3/uL RBC (4.6-6.2) 10^6/uL Hgb (14.0-18.0) g/dL Hct (40.0-54.0) % MCV (80-100) fL MCH (27.0-34.0) pg MCHC (33.0-35.0) g/dL Plt Count (150-450) 10^3/uL Neut % (Auto) (42.2-75.2) % Lymph % (Auto) (20.5-50.1) % [place] % (Auto) (2-8) % Eos % (Auto) (1.0-3.0) % Baso % (Auto) (0.0-1.0) % Sodium (136-145) mmol/L Potassium (3.5-5.1) mmol/L Chloride (98-107) mmol/L Carbon Dioxide (21-32) mmol/L Anion Gap (7-13) mEq/L BUN (7-18) mg/dL Creatinine (0.70-1.30) mg/dL Est Cr Clr Drug Dosing mL/min Estimated GFR (MDRD) Glucose (70-99) mg/dL POC Glucose 145 H 193 H 219 H (70-99) mg/dL Calcium (8.5-10.1) mg/dL Vancomycin Trough (10.0-20.0) ug/mL 03/05/21 03/05/21 03/05/21 Range/Units 05:45 05:45 07:33 WBC 5.6 (5.0-10.0) 10^3/uL RBC 4.45 L (4.6-6.2) 10^6/uL Hgb 13.1 L (14.0-18.0) g/dL Hct 39.2 L (40.0-54.0) % MCV 88.1 (80-100) fL MCH 29.4 (27.0-34.0) pg MCHC 33.4 (33.0-35.0) g/dL Plt Count 144 L (150-450) 10^3/uL Neut % (Auto) 42.5 (42.2-75.2) % Lymph % (Auto) 48.1 (20.5-50.1) % [place] % (Auto) 7.8 (2-8) % Eos % (Auto) 1.4 (1.0-3.0) % Baso % (Auto) 0.2 (0.0-1.0) % Sodium 139 (136-145) mmol/L Potassium 3.5 (3.5-5.1) mmol/L Chloride 103 (98-107) mmol/L Carbon Dioxide 28 (21-32) mmol/L Anion Gap 11.5 (7-13) mEq/L BUN 6 L (7-18) mg/dL Creatinine 0.57 L (0.70-1.30) mg/dL Est Cr Clr Drug Dosing 184.27 mL/min Estimated GFR (MDRD) > 60 Glucose 194 H (70-99) mg/dL POC Glucose 142 H (70-99) mg/dL Calcium 8.0 L (8.5-10.1) mg/dL Vancomycin Trough (10.0-20.0) ug/mL 03/05/21 03/05/21 Range/Units 11:35 13:15 WBC (5.0-10.0) 10^3/uL RBC (4.6-6.2) 10^6/uL Hgb (14.0-18.0) g/dL Hct (40.0-54.0) % MCV (80-100) fL MCH (27.0-34.0) pg MCHC (33.0-35.0) g/dL Plt Count (150-450) 10^3/uL Neut % (Auto) (42.2-75.2) % Lymph % (Auto) (20.5-50.1) % [place] % (Auto) (2-8) % Eos % (Auto) (1.0-3.0) % Baso % (Auto) (0.0-1.0) % Sodium (136-145) mmol/L Potassium (3.5-5.1) mmol/L Chloride (98-107) mmol/L Carbon Dioxide (21-32) mmol/L Anion Gap (7-13) mEq/L BUN (7-18) mg/dL Creatinine (0.70-1.30) mg/dL Est Cr Clr Drug Dosing mL/min Estimated GFR (MDRD) Glucose (70-99) mg/dL POC Glucose 176 H (70-99) mg/dL Calcium (8.5-10.1) mg/dL Vancomycin Trough 16.2 (10.0-20.0) ug/mL [facility] Results - Last 24 hrs: Microbiology 03/01/21 04:08 Aerobic Blood Culture - Preliminary Blood NO GROWTH AFTER 4 DAYS Anaerobic Blood Culture - Preliminary NO GROWTH AFTER 4 DAYS 03/01/21 04:08 Aerobic Blood Culture - Preliminary Blood NO GROWTH AFTER 4 DAYS Anaerobic Blood Culture - Preliminary NO GROWTH AFTER 4 DAYS Med Orders - Current: Current Medications Acetaminophen (Acetaminophen 325 Mg Tab) 650 mg PO Q4H PRN PRN Reason: Pain (Mild 1-3)/fever Dextrose/Water (50% Dextrose In Water 50 Ml Syringe) 25 ml IVPUSH ASDIRECTED PRN PRN Reason: Hypoglycemia BS<70 Dextrose/Water (50% Dextrose In Water 50 Ml Syringe) 50 ml IVPUSH Q15M PRN PRN Reason: Hypoglycemia Glucagon (Glucagon,Human Recombinant 1 Mg Vial) 1 mg IM Q15M PRN PRN Reason: Hypoglycemia Heparin Sodium (Porcine) (Heparin Sodium 5,000 Units/Ml Vial) 5,000 units SUBCUT Q8HR [facility] Last Admin: 03/05/21 13:53 Dose: Not Given Documented by: Cefepime HCl 1 gm/ Sodium (Chloride) 50 mls @ 100 mls/hr IV Q8HR [facility] Last Admin: 03/05/21 13:51 Dose: 100 mls/hr Documented by: Vancomycin HCl 2 gm/ Sodium (Chloride) 500 mls @ 250 mls/hr IV Q8H [facility] Last Admin: 03/05/21 14:32 Dose: 250 mls/hr Documented by: Insulin Glargine (Insulin Glarg,Human.Rec.Analog 100 Unit/Ml) 10 unit SUBCUT DAILY [facility] Last Admin: 03/05/21 08:44 Dose: Not Given Documented by: Insulin Human Lispro (Insulin Lispro 100 Units/Ml 3 Ml Vial) 0 unit SUBCUT WITHMEALSANDBED [facility]; Protocol Last Admin: 03/05/21 12:47 Dose: Not Given Documented by: Ketorolac Tromethamine (Ketorolac 30 Mg/Ml Sdv) 30 mg IVPUSH Q6H PRN PRN Reason: Pain (moderate 4-6) Stop: 03/06/21 12:33 Last Admin: 03/03/21 03:47 Dose: 30 mg Documented by: Lactulose (Lactulose Soln 10 Gm/15 Ml 30 Ml Ud Cup) 20 gm PO TID [facility] Last Admin: 03/05/21 13:53 Dose: Not Given Documented by: Lorazepam (Lorazepam 2 Mg/Ml Sdv) 1 mg IVPUSH Q4H PRN PRN Reason: Anxiety Morphine Sulfate (Morphine 2 Mg/Ml Syringe) 1 mg IVPUSH Q2H PRN PRN Reason: Pain (severe 7-10) Last Admin: 03/05/21 06:29 Dose: 1 mg Documented by: Nicotine (Nicotine 21 Mg/24 Hr Patch) 21 mg TRDERM DAILY [facility] Last Admin: 03/05/21 08:38 Dose: Not Given Documented by: Ondansetron HCl (Ondansetron 4 Mg Tab.Dis) 4 mg PO Q4H PRN PRN Reason: nausea, able to take PO Last Admin: 03/03/21 10:27 Dose: 4 mg Documented by: Sodium Chloride (Sodium Chloride 0.9% 10 Ml Syringe) 10 ml FLUSH 0900,2100 [facility] Last Admin: 03/05/21 13:51 Dose: 10 ml Documented by: Vancomycin HCl (Pharmacy To Dose - Vancomycin) 1 dose .XX ASDIRECTED [facility] Discontinued Medications Vancomycin HCl 1,500 mg/ (Sodium Chloride) 500 mls @ 333.333 mls/hr IV ONETIME ONE Stop: 03/01/21 06:59 Last Admin: 03/01/21 05:49 Dose: 333.333 mls/hr Documented by: Potassium Chloride/Sodium Chloride (Normal Saline With 20 Meq Kcl) 1,000 mls @ 100 mls/hr IV ASDIRECTED [facility] Last Infusion: 03/02/21 13:34 Dose: Infused Documented by: Vancomycin HCl 1.5 gm/ Premix 300 mls @ 200 mls/hr IV Q8H [facility] Last Admin: 03/04/21 07:50 Dose: Not Given Documented by: Piperacillin Sod/Tazobactam (Sod 3.375 gm/ Sodium Chloride) 100 mls @ 200 mls/hr IV Q6HR [facility] Last Admin: 03/01/21 13:24 Dose: 200 mls/hr Documented by: Lactulose (Lactulose Soln 10 Gm/15 Ml 30 Ml Ud Cup) 20 gm PO ONETIME ONE Stop: 03/01/21 05:33 Last Admin: 03/01/21 05:50 Dose: 20 gm Documented by: Nicotine (Nicotine 14 Mg/24 Hr Patch) 14 mg TRDERM DAILY [facility] Last Admin: 03/01/21 14:15 Dose: Not Given Documented by: Potassium Chloride (Potassium Chloride 10 Meq Tab.Er) 40 meq PO ONETIME ONE Stop: 03/01/21 11:31 Last Admin: 03/01/21 11:41 Dose: 40 meq Documented by: Potassium Chloride (Potassium Chloride 10 Meq Tab.Er) 40 meq PO ONETIME ONE Stop: 03/02/21 11:33 Last Admin: 03/02/21 12:16 Dose: 40 meq Documented by: Potassium Chloride (Potassium Chloride 10 Meq Tab.Er) 40 meq PO ONETIME ONE Stop: 03/03/21 16:38 Last Admin: 03/03/21 16:52 Dose: 40 meq Documented by: - Exam General: Reports: Alert, Oriented
== END 2021-03-05 15:30 | disposition left against medical advice (07) | DRG 638 ==
LOC: DL.ED 03:47 → DL.MS 06:39
PROVIDERS: ADMIT Internal Medicine; ATTEND Internal Medicine
DX: E11.69 Type 2 diabetes mellitus with other specified complication (principal); E72.20 Disorder of urea cycle metabolism, unspecified; M86.8X7 Other osteomyelitis, ankle and foot; L03.115 Cellulitis of right lower limb; E87.1 Hypo-osmolality and hyponatremia; R79.89 Other specified abnormal findings of blood chemistry; F15.10 Other stimulant abuse, uncomplicated; Z88.8 Allergy status to other drugs, medicaments and biological substances; E11.65 Type 2 diabetes mellitus with hyperglycemia; I10 Essential (primary) hypertension; E11.21 Type 2 diabetes mellitus with diabetic nephropathy; F32.A Depression, unspecified; F17.210 Nicotine dependence, cigarettes, uncomplicated; E87.6 Hypokalemia; Z79.899 Other long term (current) drug therapy; Z79.84 Long term (current) use of oral hypoglycemic drugs; Z88.6 Allergy status to analgesic agent; Z86.19 Personal history of other infectious and parasitic diseases; Z20.822 Contact with and (suspected) exposure to COVID-19
CPT/HCPCS: 0240U; 36415; 73630; 73718; 80048; 80053; 80074; 80143; 80179; 80202; 80305; 80307; 81001; 82140; 82150; 82947; 83605; 83735; 84484; 85025; 85027; 85610; 87040; 87070; 87086; 87205; 93005; 99285; 87077; 87186; A9270-GY; J0692; J1644; J1815-GY; J1885; J2270; J2543; J3370; J3480; J7040

== ENCOUNTER 2021-04-15 21:33 | Emergency (ER) | payer OTHER ==
[2021-04-15] MEDS ORDERED: Sulfamethoxazole/Trimethoprim 800-160 MG Tab PO ONE (21:34)
[2021-04-15 22:07] VITALS: BP 132/83; PULSE 96
[2021-04-15] MEDS: Sodium Chloride 0.9% 10 ML Syringe FLUSH PRN (22:15)
[2021-04-15 22:46] LABS: AMPHETAMINES,URINE NEGATIVE (NEGATIVE); BARBITURATES,URINE NEGATIVE (NEGATIVE); BENZODIAZEPINE,URINE NEGATIVE (NEGATIVE); MDMA (ECSTASY), URINE NEGATIVE (NEGATIVE); METHADONE,URINE NEGATIVE (NEGATIVE); METHAMPHETAMINES,URINE NEGATIVE (NEGATIVE); OPIATES,URINE NEGATIVE (NEGATIVE); OXYCODONE,URINE NEGATIVE (NEGATIVE); PHENCYCLIDINE,URINE NEGATIVE (NEGATIVE); TCA,URINE NEGATIVE (NEGATIVE)
[2021-04-15 22:49] LABS: ANION GAP 15.9 mEq/L (7-13); CHLORIDE,CL 101 mmol/L (98-107); SODIUM,NA 136 mmol/L (136-145)
[2021-04-15] MEDS ORDERED: Sulfamethoxazole/Trimethoprim 800-160 MG Tab ONE ×2 (23:00→23:10)
[2021-04-15] MEDS: Sulfamethoxazole/Trimethoprim 800-160 MG Tab PO ONE (23:10)
== END 2021-04-15 23:12 | disposition home or self-care (01) ==
LOC: DL.ED 21:33
DX: L03.115 Cellulitis of right lower limb (principal); I10 Essential (primary) hypertension; E11.21 Type 2 diabetes mellitus with diabetic nephropathy; Z88.1 Allergy status to other antibiotic agents; Z88.0 Allergy status to penicillin; Z72.0 Tobacco use; Z91.018 Allergy to other foods; Z79.84 Long term (current) use of oral hypoglycemic drugs; Z79.899 Other long term (current) drug therapy
CPT/HCPCS: 36415; 73660; 80053; 80305; 80307; 81003; 83605; 85025; 87040; 99283; A9270

== ENCOUNTER 2021-06-16 11:45 | Emergency (ER) | payer SELFPAY ==
[2021-06-16] MEDS ORDERED: Sodium Chloride 0.9% 1,000 ML IV ONE (11:54)
[2021-06-16] MEDS ORDERED: Sodium Chloride 0.9% 10 ML Syringe FLUSH PRN (11:54)
[2021-06-16 12:01] VITALS: BP 116/73; PULSE 84
[2021-06-16 12:36] LABS: ANION GAP 17.6 mEq/L (7-13); CHLORIDE,CL 101 mmol/L (98-107); SODIUM,NA 140 mmol/L (136-145)
[2021-06-16] MEDS ORDERED: MVI, Adult with Vitamin K 10 ML, Folic Acid 1 MG, Thiamine 100 MG in Lactated Ringers 1... IV ONE ×4 (12:42)
[2021-06-16 12:57] LABS: AMPHETAMINES,URINE NEGATIVE (NEGATIVE); BARBITURATES,URINE NEGATIVE (NEGATIVE); BENZODIAZEPINE,URINE NEGATIVE (NEGATIVE); MDMA (ECSTASY), URINE NEGATIVE (NEGATIVE); METHADONE,URINE NEGATIVE (NEGATIVE); METHAMPHETAMINES,URINE NEGATIVE (NEGATIVE); OPIATES,URINE NEGATIVE (NEGATIVE); OXYCODONE,URINE NEGATIVE (NEGATIVE); PHENCYCLIDINE,URINE NEGATIVE (NEGATIVE); TCA,URINE NEGATIVE (NEGATIVE)
== END 2021-06-16 13:00 | disposition home or self-care (01) ==
LOC: DL.ED 11:45
DX: R51.9 Headache, unspecified (principal); F10.129 Alcohol abuse with intoxication, unspecified; S30.1XXA Contusion of abdominal wall, initial encounter; E11.21 Type 2 diabetes mellitus with diabetic nephropathy; K21.9 Gastro-esophageal reflux disease without esophagitis; I10 Essential (primary) hypertension; Z88.1 Allergy status to other antibiotic agents; Z88.0 Allergy status to penicillin; Z91.018 Allergy to other foods; Z88.8 Allergy status to other drugs, medicaments and biological substances; Z79.4 Long term (current) use of insulin; Z79.899 Other long term (current) drug therapy; Y90.8 Blood alcohol level of 240 mg/100 ml or more; Y04.0XXA Assault by unarmed brawl or fight, initial encounter
CPT/HCPCS: 36415; 70450; 72125; 80053; 80305; 80307; 81001; 83735; 85025; 99285; J3490; J7030; 99283

== ENCOUNTER 2022-01-28 08:34 | Emergency (ER) | payer OTHER ==
[2022-01-28 08:57] VITALS: PULSE 91
[2022-01-28] MEDS ORDERED: Acetaminophen/HYDROcodone 325-10 MG Tab PO ONE (09:04)
[2022-01-28] MEDS ORDERED: Losartan 25 MG Tab PO ONE (09:04)
[2022-01-28 09:15] VITALS: BP 138/95
[2022-01-28 09:34] LABS: CORONAVIRUS COVID-19 NAA NEGATIVE (NEGATIVE); RESPIRATORY SYNCYTIAL VIR NAA NEGATIVE (NEGATIVE)
== END 2022-01-28 10:15 | disposition home or self-care (01) ==
LOC: DL.ED 08:34
DX: S70.12XA Contusion of left thigh, initial encounter (principal); M25.552 Pain in left hip; M25.562 Pain in left knee; I10 Essential (primary) hypertension; E11.21 Type 2 diabetes mellitus with diabetic nephropathy; Z88.8 Allergy status to other drugs, medicaments and biological substances; Z88.6 Allergy status to analgesic agent; Z88.0 Allergy status to penicillin; Z91.018 Allergy to other foods; Z88.1 Allergy status to other antibiotic agents; Z79.4 Long term (current) use of insulin; Z79.899 Other long term (current) drug therapy; Z72.0 Tobacco use; Z20.822 Contact with and (suspected) exposure to COVID-19; W01.0XXA Fall on same level from slipping, tripping and stumbling without subsequent striking against object, initial encounter; Y93.E1 Activity, personal bathing and showering
CPT/HCPCS: 0241U; 73502; 73552; 99284; A9270

== ENCOUNTER 2022-05-19 14:16 | Emergency (ER) | payer SELFPAY ==
[2022-05-19 14:10] VITALS: BP 94/69; PULSE 104
[~2022-05-19 14:16] MED LIST: Iopamidol 612 MG/ML 100 ML Bottle IVPUSH ONE; Sodium Chloride 0.9% 1,000 ML IV ONE
[2022-05-19 15:33] LABS: ANION GAP 12.9 mEq/L (7-13)
[2022-05-19] MEDS ORDERED: Potassium Chloride 10 MEQ Tab.ER PO ONE (15:47)
== END 2022-05-19 15:53 | disposition home or self-care (01) ==
LOC: DL.ED 14:16
DX: S02.2XXA Fracture of nasal bones, initial encounter for closed fracture (principal); S00.83XA Contusion of other part of head, initial encounter; F10.920 Alcohol use, unspecified with intoxication, uncomplicated; I10 Essential (primary) hypertension; E11.21 Type 2 diabetes mellitus with diabetic nephropathy; Z88.1 Allergy status to other antibiotic agents; Z88.0 Allergy status to penicillin; Z88.8 Allergy status to other drugs, medicaments and biological substances; Z79.4 Long term (current) use of insulin; Z79.899 Other long term (current) drug therapy; Y04.0XXA Assault by unarmed brawl or fight, initial encounter
CPT/HCPCS: 36415; 70450; 70486; 71260; 72125; 74177; 80053; 80307; 85025; 96360; 99284; 99285-25; A9270-GY; J7030; Q9967

== ENCOUNTER 2022-05-23 17:22 | Emergency (ER) | payer SELFPAY ==
[~2022-05-23 17:22] MED LIST changes: -Iopamidol 612 MG/ML 100 ML Bottle IVPUSH ONE; +Octreotide 100 MCG in Sodium Chloride 0.9% 99 ML IV SCH; +Octreotide 100 MCG/ML SDV IVPUSH ONE; +Pantoprazole 40 MG Vial IVPUSH ONE; +Pantoprazole 40 MG in Sodium Chloride 0.9% 100 ML IV SCH; -Sodium Chloride 0.9% 1,000 ML IV ONE; +Sodium Chloride 0.9% 10 ML Syringe FLUSH PRN
[2022-05-23] MEDS: Octreotide 100 MCG in Sodium Chloride 0.9% 99 ML IV SCH ×6 (17:31→17:39)
[2022-05-23] MEDS ORDERED: Tranexamic Acid 1,000 MG in Sodium Chloride 0.9% 100 ML IV ONE (17:42)
[2022-05-23] MEDS ORDERED: Sodium Chloride 0.9% 1,000 ML IV ONE (17:51)
[2022-05-23 17:54] LABS: ANION GAP 10.2 mEq/L (7-13); CHLORIDE,CL 93 mmol/L (98-107); SODIUM,NA 130 mmol/L (136-145)
[2022-05-23 18:03] LABS: ESTIMATED GFR 45 mL/min (>=60)
[2022-05-23 18:30] VITALS: BP 109/51; PULSE 108
== END 2022-05-23 18:40 | disposition home or self-care (01) ==
LOC: DL.ED 17:22
DX: E87.20 Acidosis, unspecified (principal); N17.9 Acute kidney failure, unspecified; K92.2 Gastrointestinal hemorrhage, unspecified; K72.90 Hepatic failure, unspecified without coma; I95.9 Hypotension, unspecified; E11.21 Type 2 diabetes mellitus with diabetic nephropathy; I10 Essential (primary) hypertension; Z79.899 Other long term (current) drug therapy; Z79.84 Long term (current) use of oral hypoglycemic drugs; Z88.1 Allergy status to other antibiotic agents; Z88.8 Allergy status to other drugs, medicaments and biological substances; Z91.018 Allergy to other foods
CPT/HCPCS: 36415; 36430; 80053; 80307; 82140; 83605; 85025; 85610; 86140; 86850; 86900; 86901; 86920; 86922; 93005; 93010; 96365; 96368; 96376; 99285; C9113; J2354; J3490; J7030; P9016

== ENCOUNTER 2022-06-05 21:09 | Emergency (ER) | payer SELFPAY ==
[2022-06-05] MEDS: Sodium Chloride 0.9% 10 ML Syringe FLUSH PRN ×2 (21:40→22:06)
[2022-06-05] MEDS ORDERED: Sodium Chloride 0.9% 1,000 ML IV ONE (22:00)
[2022-06-05 22:08] LABS: ANION GAP 14.9 mEq/L (7-13)
[2022-06-05] MEDS ORDERED: Iopamidol 612 MG/ML 100 ML Bottle IVPUSH ONE (22:16)
[2022-06-05] MEDS ORDERED: Vancomycin 2 GM in Sodium Chloride 0.9% 500 ML IV ONE (22:54)
[2022-06-05] MEDS ORDERED: Vancomycin 1 GM SDV ONE (23:01)
[2022-06-05] MEDS ORDERED: Sodium Chloride 0.9% 500 ML ONE (23:01)
[2022-06-05] MEDS ORDERED: Levofloxacin/Dextrose 5%-Water 500 MG in Premix Bag 1 BAG IV ONE (23:36)
[2022-06-05] MEDS ORDERED: Levofloxacin/Dextrose 5%-Water 100 ML IV ONE (23:39)
[2022-06-06 00:36] VITALS: BP 96/70; PULSE 91
== END 2022-06-06 00:21 ==
LOC: DL.ED 21:09
DX: K70.31 Alcoholic cirrhosis of liver with ascites (principal); K65.9 Peritonitis, unspecified; B96.89 Other specified bacterial agents as the cause of diseases classified elsewhere; I10 Essential (primary) hypertension; E11.21 Type 2 diabetes mellitus with diabetic nephropathy; Z88.1 Allergy status to other antibiotic agents; Z88.0 Allergy status to penicillin; Z91.018 Allergy to other foods; Z88.8 Allergy status to other drugs, medicaments and biological substances; Z79.899 Other long term (current) drug therapy; Z79.4 Long term (current) use of insulin
CPT/HCPCS: 36415; 71045; 74177; 80053; 82140; 82150; 83605; 83690; 83735; 84145; 85025; 85610; 86140; 87040; 93005; 93010; 96361; 96365; 96367; 99284-25; 99285; J1956; J3370; J3490; J7030; J7040; Q9967

== ENCOUNTER 2022-06-12 08:40 | Emergency (ER) | payer OTHER ==
[2022-06-12 08:52] VITALS: BP 120/85; PULSE 100
[2022-06-12] MEDS: HYDROmorphone 0.5 MG/0.5 ML Syringe IVPUSH ONE (09:28)
[2022-06-12] MEDS: Sodium Chloride 0.9% 10 ML Syringe FLUSH PRN (09:28)
[2022-06-12 09:29] LABS: ANION GAP 17.5 mEq/L (7-13); CHLORIDE,CL 98 mmol/L (98-107); ESTIMATED GFR 65 mL/min (>=60); SODIUM,NA 133 mmol/L (136-145)
[2022-06-12 10:13] LABS: AMPHETAMINES,URINE NEGATIVE (NEGATIVE); BARBITURATES,URINE NEGATIVE (NEGATIVE); BENZODIAZEPINE,URINE NEGATIVE (NEGATIVE); MDMA (ECSTASY), URINE NEGATIVE (NEGATIVE); METHADONE,URINE NEGATIVE (NEGATIVE); METHAMPHETAMINES,URINE NEGATIVE (NEGATIVE); OPIATES,URINE NEGATIVE (NEGATIVE); OXYCODONE,URINE NEGATIVE (NEGATIVE); PHENCYCLIDINE,URINE NEGATIVE (NEGATIVE); TCA,URINE NEGATIVE (NEGATIVE)
[2022-06-12] MEDS: Sodium Chloride 0.9% 1,000 ML IV ONE (11:44)
[2022-06-12] MEDS: Albumin 25% 12.5 GM in Premix Bag 1 BAG IV ONE ×2 (11:44→13:15)
[2022-06-12] MEDS: Phytonadione 5 MG in Sodium Chloride 0.9% 50 ML IV ONE (11:45)
[2022-06-12] MEDS: Albumin Human 50 GM in Premix Bag 1 BAG IV ONE (11:47)
[2022-06-12] MEDS: Lidocaine 1% with EPINEPHrine 1:100,000 20 ML MDV INJECT ONE (11:48)
[2022-06-12] MEDS ORDERED: Albumin 25% 12.5 GM in Premix Bag 1 BAG IV ONE (14:42)
== END 2022-06-12 13:50 | disposition home or self-care (01) ==
LOC: DL.ED 08:40
DX: K70.31 Alcoholic cirrhosis of liver with ascites (principal); K72.90 Hepatic failure, unspecified without coma; I10 Essential (primary) hypertension; E11.9 Type 2 diabetes mellitus without complications; Z79.899 Other long term (current) drug therapy; Z79.4 Long term (current) use of insulin; Z91.018 Allergy to other foods
CPT/HCPCS: 36415; 49083; 80053; 80305-QW; 80307; 81001; 82140; 82150; 82607; 83605; 83690; 83735; 84100; 84145; 85025; 85610; 86140; 87040; 87070; 93005; 93010; 96365; 96367; 96368; 96375; 99284; 99284-25; J1170; J3430; J3490; J7030; P9047

== ENCOUNTER 2022-06-17 16:17 | Emergency (ER) | payer MEDICAID, OTHER ==
[2022-06-17] MEDS ORDERED: 50% Dextrose in Water 50 ML Syringe IV ONE (16:18)
[2022-06-17] MEDS ORDERED: Sodium Bicarbonate 8.4% 50 MEQ/50 ML Syringe IV ONE (16:18)
[2022-06-17] MEDS ORDERED: EPINEPHrine 1:10,000 1 MG/10 ML Syringe IV ONE (16:18)
[2022-06-17] MEDS ORDERED: Sodium Bicarbonate 8.4% 50 MEQ/50 ML Syringe ONE (19:36)
[2022-06-17] MEDS ORDERED: 50% Dextrose in Water 50 ML Syringe ONE (19:37)
[2022-06-17] MEDS ORDERED: EPINEPHrine 1:10,000 1 MG/10 ML Syringe ONE (19:37)
== END 2022-06-17 19:25 | disposition expired ==
LOC: DL.ED 16:17
DX: I46.9 Cardiac arrest, cause unspecified (principal); K74.60 Unspecified cirrhosis of liver; R18.8 Other ascites; K72.10 Chronic hepatic failure without coma; I85.11 Secondary esophageal varices with bleeding; E11.21 Type 2 diabetes mellitus with diabetic nephropathy; I10 Essential (primary) hypertension; Z88.0 Allergy status to penicillin; Z88.1 Allergy status to other antibiotic agents; Z88.8 Allergy status to other drugs, medicaments and biological substances; Z91.018 Allergy to other foods; Z79.4 Long term (current) use of insulin; Z79.899 Other long term (current) drug therapy
CPT/HCPCS: 31500; 43752; 71045; 82947; 92950; 99285; J0171; J3490